=== PATIENT | female | born 2000 | race Caucasian/White ===

== ENCOUNTER 2020-01-08 14:37 | Emergency (ER) | payer OTHER, SELFPAY ==
--- NOTE | 2020-01-08 14:47 | ED.GENADULT ---
HPI - General Adult General Chief complaint: Upper Respiratory Infection Stated complaint: cough/chest congestion/sob Time Seen by Provider: 01/08/20 14:46 Source: patient Mode of arrival: ambulatory Limitations: no limitations History of Present Illness HPI narrative: 19-year-old female patient presents to the [facility] with complaints of cold symptoms for the past 5 days. Patient states she has had a cough, shortness of breath at times, patient denies any fevers that she is aware of. Patient states she does have a history of asthma but is currently out of her inhaler. Patient states that she does vape currently. Denies getting a flu shot this year. Denies taking anything for her symptoms. Related Data Home Medications Medication Instructions Recorded Confirmed ranitidine HCl 01/08/20 Allergies Allergy/AdvReac Type Severity Reaction Status Date / Time Sulfa (Sulfonamide Allergy Unknown Unknown Verified 08/08/19 13:25 Antibiotics) sulfamethoxazole Allergy Unknown Unknown Verified 08/08/19 13:25 trimethoprim Allergy Unknown Unknown Verified 08/08/19 13:25 Honey Bee Allergy Unknown Unknown Uncoded 08/08/19 13:25 Review of Systems Review of Systems: Narrative: CONSTITUTIONAL: Denies fever, chills, or sweats. EYES: Denies visual changes, redness, or discharge. ENT: Denies rhinorrhea, congestion, sore throat, or otalgia. CARDIOVASCULAR: Denies chest pain, palpitations, or edema. RESPIRATORY: Positive cough with dyspnea. GASTROINTESTINAL: Denies abdominal pain, nausea, vomiting, or diarrhea. GENITOURINARY: Denies dysuria or hematuria. SKIN: Denies rash or itching. MUSCULOSKELETAL: Denies back pain, joint pain, or myalgia. NEUROLOGIC: Denies headache, numbness, or weakness. PSYCHIATRIC: Denies anxiety or depression. PMFSH Comments At the time of my signature I agree with nursing past medical history, surgical, social, and family history. There is no relevant family history pertinent to the presenting complaint. Exam Narrative: Exam Narrative: GENERAL: Well-appearing, well-nourished, and in no acute distress. HEAD: Normocephalic, atraumatic. EYES: PERRLA and EOMI. ENT: Nares with erythema and edema noted bilaterally, no rhinorrhea or epistaxis. Mucous membranes moist. Posterior pharynx with no erythema, tonsillar edema, exudates or lesions present. Bilateral TMs are clear with no erythema or foreign bodies in the canal. NECK: Supple. No lymphadenopathy CHEST: Clear to auscultation. No respiratory distress. Patient able talk in clear complete sentences. No tripoding noted at this time. HEART: Regular rate and rhythm. No murmur heard. Normal peripheral pulses. ABDOMEN: Soft, nontender, nondistended, normal active bowel sounds. EXTREMITIES: Normal range of motion. No edema. SKIN: Warm, dry, no rash. NEURO: No focal deficits. Alert and oriented x3. Course Vital Signs Vital signs: Vital Signs Temperature 37.4 C 01/08/20 14:54 Pulse Rate 95 01/08/20 14:54 Respiratory Rate 16 01/08/20 14:54 Blood Pressure 131/81 01/08/20 14:54 Pulse Oximetry 100 01/08/20 14:54 Temperature 37.4 C 01/08/20 14:54 Pulse Rate 95 01/08/20 14:54 Respiratory Rate 16 01/08/20 14:54 Blood Pressure 131/81 01/08/20 14:54 Pulse Oximetry 100 01/08/20 14:54 Vital signs reviewed. Medical Decision Making Differential Diagnosis Differential Diagnosis: Differential diagnosis: Allergic rhinitis, chronic sinusitis, tonsillitis, acute sinusitis, infectious mononucleosis, seasonal influenza, pertussis, diphtheria, meningococcal disease, viral syndrome, viral bronchitis, RSV. Discussed with patient that we will go ahead and discharge her home with an albuterol inhaler since she is currently out for worsening shortness of breath and coughing that she can use. Discussed with patient the fact that she does not have any fever and I do not hear any wheezing noted to the lungs is reassuring at this time. Discussed wi
[2020-01-08 14:54] VITALS: BP 131/81; PULSE 95; RESP 16; TEMP 37.4; O2SAT 100
== END 2020-01-08 15:22 | disposition home or self-care (01) ==
PROVIDERS: Emergency Provider Nurse Practitioner Family
DX: J06.9 Acute upper respiratory infection, unspecified (principal); J45.909 Unspecified asthma, uncomplicated; K21.9 Gastro-esophageal reflux disease without esophagitis
CPT/HCPCS: 99203; G0463

== ENCOUNTER 2021-03-11 10:23 | Emergency (ER) | payer OTHER, SELFPAY ==
[2021-03-11 10:30] VITALS: BP 106/69; PULSE 94; RESP 20; TEMP 36.7; O2SAT 100
--- NOTE | 2021-03-11 10:31 | ED.URI ---
HPI - URI/Sore Throat General Chief Complaint: Upper Respiratory Infection Stated Complaint: congestion cough and sore throat Time Seen by Provider: 03/11/21 10:31 Source: patient and RN notes reviewed History of Present Illness HPI Narrative: Patient is a 20-year-old female who presents the urgent care with complaints of congestion, cough, body aches and sore throat. Patient states that it started on Thursday and is needing a work note to return to work due to her symptoms . Patient states that she has been taking DayQuil for her symptoms. Denies of any nausea, vomiting, fever. Patient states she has not had strep since her tonsils were removed many years ago. Denies of any known contact with Covid, strep or influenza. No other acute complaints. No acute distress noted. Patient aware of the plan of care. Some parts of this dictation were generated by voice recognition software and may contain typographical and/or grammatical inaccuracies. Related Data Allergies Allergy/AdvReac Type Severity Reaction Status Date / Time Sulfa (Sulfonamide Allergy Rash Verified 03/11/21 10:45 Antibiotics) sulfamethoxazole Allergy Rash Verified 03/11/21 10:44 [From ] trimethoprim [From ] Allergy Rash Verified 03/11/21 10:44 Review of Systems Review of Systems: Narrative: CONSTITUTIONAL: Denies fever, chills, or sweats. EYES: Denies visual changes, redness, or discharge. ENT: Reports of congestion, sinus tenderness, sore throat, bilateral otalgia CARDIOVASCULAR: Denies chest pain, palpitations, or edema. RESPIRATORY: Reports a mild nonproductive cough without dyspnea GASTROINTESTINAL: Denies abdominal pain, nausea, vomiting, or diarrhea. GENITOURINARY: Denies dysuria or hematuria. SKIN: Denies rash or itching. MUSCULOSKELETAL: Denies back pain, joint pain, or myalgia. NEUROLOGIC: Denies headache, numbness, or weakness. All other systems reviewed are negative, except as documented in HPI. PMFSH Comments At the time of my signature, I reviewed and agree with the nursing past medical, surgical, social, and family history. There is no relevant family history pertinent to the patient complaint. Exam Narrative: Exam Narrative: GENERAL: This is a well-nourished, well-developed patient, in no apparent distress. HEAD: normocephalic, atraumatic. EYES: PERRL. Sclera clear/white. Vision is grossly intact. EARS: External ears normal, auditory canals clear and without drainage, TMs normal without perforation. Hearing grossly intact. NOSE: External nose normal with no obvious nasal discharge, nares without redness, no rhinorrhea. THROAT: Mucous membranes moist, posterior pharynx clear. NECK: Neck supple, non-tender without lymphadenopathy, masses or thyromegaly. CARDIOVASCULAR: Regular rate and rhythm without murmurs, gallops, or rubs. RESPIRATORY: Clear to auscultation. Breath sounds equal bilaterally. No wheezes, rales, or rhonchi. SKIN: warm, intact with no suspicious lesions or rash, good texture and turgor. NEURO: awake, alert, and oriented to person, place and time. There were no obvious focal neurologic abnormalities. EXTREMITIES: No clubbing, cyanosis, or edema. Course Vital Signs Vital signs: Vital Signs Temperature 98.1 F 03/11/21 10:30 Pulse Rate 94 03/11/21 10:30 Respiratory Rate 20 03/11/21 10:30 Blood Pressure 106/69 03/11/21 10:30 Pulse Oximetry 100 03/11/21 10:30 Temperature 98.1 F 03/11/21 10:47 Pulse Rate 94 03/11/21 10:47 Respiratory Rate 20 03/11/21 10:47 Blood Pressure 106/69 03/11/21 10:47 Pulse Oximetry 100 03/11/21 10:47 Reviewed MDM - URI/Sore Throat MDM Narrative Medical decision making narrative: Reviewed lab results with the patient. She is aware that strep swab was negative. Educated patient on culture we will call within 72 hours if culture is positive and antibiotics are necessary. Rapid Covid test was also negative. Advised the patient to treat her sympto
[2021-03-11 10:47] VITALS: BP 106/69; PULSE 94; RESP 20; TEMP 36.7; O2SAT 100
== END 2021-03-11 11:05 | disposition home or self-care (01) ==
PROVIDERS: Emergency Provider Nurse Practitioner Family
DX: J32.9 Chronic sinusitis, unspecified (principal); Z20.822 Contact with and (suspected) exposure to COVID-19
CPT/HCPCS: 87081; 87426; 87880; 99213; C9803; G0463

== ENCOUNTER 2021-04-26 10:07 | Emergency (ER) | payer OTHER, SELFPAY ==
[2021-04-26 10:12] VITALS: BP 124/69; PULSE 95; RESP 18; TEMP 37.2; O2SAT 99
--- NOTE | 2021-04-26 10:32 | ED.SKABFB ---
HPI - Skin/Abscess/Foreign Bdy General Chief complaint: Skin/Abscess/Foreign Body Stated complaint: unknown rash Source: patient and RN notes reviewed Limitations: no limitations History of Present Illness HPI narrative: The obese patient, previously healthy on no meds, presents with skin eruption. Patient states that she has a half week history of skin eruption along her beltline and under her breast. Is now started to spread to her extremities, umbilicus, and groin. Symptoms are mild, worse with scratching; no fever, streaking, known diabetes; she requests refill of inhalers Related Data Allergies Allergy/AdvReac Type Severity Reaction Status Date / Time Sulfa (Sulfonamide Allergy Mild Rash Verified 04/26/21 10:23 Antibiotics) sulfamethoxazole Allergy Mild Rash Verified 04/26/21 10:23 [From ] trimethoprim [From ] Allergy Mild Rash Verified 04/26/21 10:23 Review of Systems Review of Systems: Narrative: General/Constitutional: No weight loss,fever Eyes: N0: Redness,discharge Ears/Nose/Throat: No: Epistaxis,ear discharge Respiratory: Denies: Hemoptysis Gastrointestinal: No Vomiting, Bleeding-rectal Skin: No Lumps, REPORTS eruption Neurologic: No Focal Weakness,Sz Hematologic: Denies: Petechiae/Purpura Psychiatric: No: Suicida ideationl All Other Systems: Reviewed and Negative PMFSH Comments At time of signature, agree with nursing past medical, surgical, social and family history. There is no relevant family history pertinent to the presenting complaint Exam Narrative: Exam Narrative: General Appearance: Obese/well nourished, Normocephalic Eye: PERRLA, Conjunctiva clear Ear: External ear normal Nose: Normal nose, Nare clear Mouth/Throat: Normal appearing Neck Exam: Supple Respiratory: Airway patent, No respiratory distress Musculoskeletal: Moves all extremities, Non tender Skin: Warm, Dry; macropapular eruption with satellite lesions on trunk, intertriginous areas and extremities Neurological: A&O x3, Normal affect Course Vital Signs Vital signs: Vital Signs Temperature 98.9 F 04/26/21 10:12 Pulse Rate 95 04/26/21 10:12 Respiratory Rate 18 04/26/21 10:12 Blood Pressure 124/69 04/26/21 10:12 Pulse Oximetry 99 04/26/21 10:12 Temperature 98.9 F 04/26/21 10:12 Pulse Rate 95 07/09/21 10:12 Respiratory Rate 18 04/26/21 10:12 Blood Pressure 124/69 04/26/21 10:12 Pulse Oximetry 99 04/26/21 10:12 Discharge Plan Discharge Clinical Impression: Intertrigo, Pruritic condition Patient Disposition: Home, Self-Care Condition: Stable Instructions: Cellulitis (ED), Skin Yeast Infection (ED) Additional Instructions: Keep photo log of area Prescriptions: New albuterol sulfate [Ventolin HFA] 90 mcg/actuation HFA aerosol inhaler 2 puff INHALATION QID PRN (Reason: shortness of breath or wheezing) Qty: 1 RF: 1 prednisone 20 mg tablet 40 mg PO DAILY Qty: 6 RF: 0 fluconazole 150 mg tablet 150 mg PO .qod Qty: 3 RF: 1 cephalexin 500 mg capsule 1,000 mg PO Q12H 7 Days Qty: 28 RF: 0 No Action albuterol sulfate [ProAir HFA] 90 mcg/actuation HFA aerosol inhaler 2 puff INHALATION QID PRN (Reason: shortness of breath or wheezing) Qty: 18 RF: 0 Follow-up/Referrals: PHYSICIAN NOT ON STAFF,NONSTAFF [Primary Care Provider] -
== END 2021-04-26 10:42 | disposition home or self-care (01) ==
PROVIDERS: Emergency Provider Emergency Medicine
DX: L30.4 Erythema intertrigo (principal); J45.909 Unspecified asthma, uncomplicated; K21.9 Gastro-esophageal reflux disease without esophagitis
CPT/HCPCS: 99213; G0463

== ENCOUNTER → 2021-06-15 00:54 | Outpatient (CLI) | payer OTHER, SELFPAY ==
[2021-06-15 22:45] LABS: SARS-CoV-2 RNA PCR Negative
== END ==
PROVIDERS: PCP Internal Medicine; Visit Provider Internal Medicine Gastroenterology
DX: Z01.812 Encounter for preprocedural laboratory examination (principal); Z20.822 Contact with and (suspected) exposure to COVID-19
CPT/HCPCS: C9803; U0003; U0005

== ENCOUNTER 2021-06-19 02:22 | Day surgery (SDC) | payer OTHER, SELFPAY ==
[2021-06-13 10:56] VITALS: BMI 48.5
--- NOTE | 2021-06-18 18:38 | PM.HPGS ---
History of Present Illness History of Present Illness Consent: Risks, benefits, and alternatives have been discussed and questions answered. Patient agrees to proceed with procedure. Chief complaint: nausea/vomiting Narrative: Amanda Kwong is a 21 year old female with persistent nausea and vomiting, often after meals. this began over a year ago. Typically she will eat a few bites and then have to run to the bathroom and vomit. With little she does not come up but she finds that she cannot eat anymore. This happens every meal. She consequently has been eating very little. Despite this she is not losing weight and in fact states that she is gaining weight, due to her body being in starvation mode. her father she believes had Brush's esophagus. She denies dysphagia. She did have ulcers when she was 14 years old. She recently began taking omeprazole 20 mg per day but is uncertain whether has helped so far Review of Systems Review of Systems: All systems reviewed & are unremarkable except as noted in HPI and below PMFSH Past Medical History Medical History Migraine headache Morbid obesity due to excess calories Family History Family History Father Barretts syndrome Mother Asthma Diabetes mellitus Depression Sibling Hypertension Grandparent Diabetes mellitus Other Asthma Social History Social History Smoking status: Current every day smoker Tobacco type: e-cigarettes/vaping Additional smoking assessment comments: Has been using Vape devices for 3 Years Alcohol intake: current Drinks per week: 1 Alcohol use details: Social Drinker Substance use: current Substance use type: marijuana Other substance usage details: twice a week Living arrangements: with family Additional occupation/education comments: [employer] Gender identity (if verbalized by the patient): Female Spiritual care concerns: No Meds Home Medications and Allergies Home Medications Medication Instructions Recorded Confirmed Type albuterol sulfate [ProAir HFA] 2 puff INHALATION QID PRN #18 gm 01/08/20 06/13/21 Rx albuterol sulfate [Ventolin HFA] 2 puff INHALATION QID PRN #1 gm 04/26/21 06/13/21 Rx omeprazole 20 mg capsule,delayed 20 mg PO DAILY #30 cap 06/05/21 06/19/21 Rx release Allergies Allergy/AdvReac Type Severity Reaction Status Date / Time Sulfa (Sulfonamide Allergy Mild Rash Verified 06/19/21 07:46 Antibiotics) sulfamethoxazole Allergy Mild Rash Verified 06/19/21 07:46 [From ] trimethoprim [From ] Allergy Mild Rash Verified 06/19/21 07:46 Exam Const: General: alert Orientation/consciousness: patient oriented x3 Resp: Auscultation: clear to auscultation bilaterally Cardio: Rhythm: regular rhythm GI: GI Palp: Yes Soft to palpation and No Tenderness to palpation present (GI) Neuro: General: patient oriented x3 Assessment and Plan Assessment and plan (1) Nausea and vomiting: Code(s): R11.2 - Nausea with vomiting, unspecified Status: Acute Assessment and Plan: EGD with possible biopsy or dilatation or cautery.
[2021-06-19 07:47] VITALS: BP 115/72; PULSE 84; RESP 20; TEMP 36.2; O2SAT 99; BMI 47.5
[2021-06-19] MEDS: LACTATED RINGERS 1,000 ML 150 ML IV CONT (07:50)
--- NOTE | 2021-06-19 08:11 | WPDANESEPPF ---
Anes - Initial Pre Proc Eval Procedure: Operation Date: 06/19/21 08:30 Proposed Procedures p Esophagogastroduodenoscopy - Onofre Mendoza MD Date/Time: 06/19/21 08:11 Surgeon: Onofre Mendoza MD Pre Op Diagnosis: nausea/vomiting Patient Data Age: 21 Gender: F Height: 1.68 m Weight: 133.4 kg Last Vital Signs Temp 97.1 F L 06/19/21 07:47 Pulse 84 06/19/21 07:47 Resp 20 06/19/21 07:47 BP 115/72 06/19/21 07:47 Pulse Ox 99 06/19/21 07:47 Allergies Allergy/AdvReac Type Severity Reaction Status Date / Time Sulfa (Sulfonamide Allergy Mild Rash Verified 06/19/21 07:46 Antibiotics) sulfamethoxazole Allergy Mild Rash Verified 06/19/21 07:46 [From ] trimethoprim [From ] Allergy Mild Rash Verified 06/19/21 07:46 Home Medications Medication Instructions Recorded Confirmed Type albuterol sulfate [ProAir HFA] 2 puff INHALATION QID PRN #18 gm 01/08/20 06/13/21 Rx albuterol sulfate [Ventolin HFA] 2 puff INHALATION QID PRN #1 gm 04/26/21 06/13/21 Rx omeprazole 20 mg capsule,delayed 20 mg PO DAILY #30 cap 06/05/21 06/19/21 Rx release Patient hx anesthesia problems: none Family hx anesthesia problems: none PMFSH Past Medical History Medical History Migraine headache Morbid obesity due to excess calories Family History Family History Father Barretts syndrome Mother Asthma Diabetes mellitus Depression Sibling Hypertension Grandparent Diabetes mellitus Other Asthma Social History Social History (Updated 06/05/21 @ 09:59 by Mackenzie Agee CMA) Smoking status: Current every day smoker Tobacco type: e-cigarettes/vaping Additional smoking assessment comments: Has been using Vape devices for 3 Years Alcohol intake: current Drinks per week: 1 Alcohol use details: Social Drinker Substance use: current Substance use type: marijuana Other substance usage details: twice a week Living arrangements: with family Additional occupation/education comments: [employer] Gender identity (if verbalized by the patient): Female Spiritual care concerns: No Anes - Eval Final PreProcedure Day of Procedure 06/19/21 08:11 Patient weight: obese Heart: regular rate and rhythm Lungs: clear to auscultation Airway: Mallampati scale class II Neurological: alert and oriented Last oral intake: >/= 8 hours ASA classification: III Emergent: no Anesthetic plan: proceed Anesthesia type and monitoring: general GIVS and standard monitoring Informed Consent: The patient's anesthetic plan and its attendant risks and benefits were discussed with the patient/family/POA. Questions were solicited and answers provided to the satisfaction of the patient/family/POA.
[2021-06-19 08:43] VITALS: BP 127/84; PULSE 77; RESP 23; O2SAT 100
[2021-06-19 08:53] VITALS: BP 128/79; PULSE 72; RESP 17; O2SAT 100
[2021-06-19 09:03] VITALS: BP 126/83; PULSE 75; RESP 11; O2SAT 100
== END 2021-06-19 09:21 | disposition home or self-care (01) ==
PROVIDERS: PCP Internal Medicine; Visit Provider Internal Medicine Gastroenterology
PROC: 0DJ08ZZ Inspection of Upper Intestinal Tract, Via Natural or Artificial Opening Endoscopic (ICD-10-PCS; CPT 43235; principal; 2021-06-19 08:30)
DX: R11.2 Nausea with vomiting, unspecified (principal); K21.9 Gastro-esophageal reflux disease without esophagitis; E66.01 Morbid (severe) obesity due to excess calories; Z68.42 Body mass index [BMI] 45.0-49.9, adult; F17.290 Nicotine dependence, other tobacco product, uncomplicated; F12.90 Cannabis use, unspecified, uncomplicated
CPT/HCPCS: 43239; 87081; J2704; J7120

== ENCOUNTER → 2021-09-10 01:50 | Outpatient (CLI) | payer OTHER, SELFPAY ==
[2021-09-10 17:55] LABS: SARS-CoV-2 RNA PCR Negative
== END ==
PROVIDERS: PCP Internal Medicine; Visit Provider Clinical Nurse Specialist
DX: R05.9 Cough, unspecified (principal); Z20.822 Contact with and (suspected) exposure to COVID-19
CPT/HCPCS: C9803; U0003; U0005

== ENCOUNTER 2021-09-14 09:48 | Emergency (ER) | payer OTHER, SELFPAY ==
[2021-09-14 09:54] VITALS: BP 141/78; PULSE 100; RESP 16; TEMP 36.8; O2SAT 98
--- NOTE | 2021-09-14 10:41 | ED.URI ---
HPI - URI/Sore Throat General Chief Complaint: Upper Respiratory Infection Stated Complaint: cough and hard to breathe Time Seen by Provider: 09/14/21 10:26 Source: patient and RN notes reviewed Mode of arrival: ambulatory Limitations: no limitations History of Present Illness HPI Narrative: Patient presents today with a 9-day history of cough, postnasal drip, congestion, shortness of breath with exertion. History of asthma. She has been using albuterol inhaler with some short-term relief. Patient called her PCP last week and was given a course of prednisone, which helped some. She finished that a few days ago. Denies fever, sore throat. MD elicited complaint: cough and nasal congestion Related Data Allergies Allergy/AdvReac Type Severity Reaction Status Date / Time Sulfa (Sulfonamide Allergy Mild Rash Verified 09/14/21 10:05 Antibiotics) sulfamethoxazole Allergy Mild Rash Verified 09/14/21 10:05 [From ] trimethoprim [From ] Allergy Mild Rash Verified 09/14/21 10:05 Review of Systems Review of Systems: CONSTITUTIONAL: Denies body aches, fever, chills, or sweats. EYES: Denies visual changes, redness, or discharge. ENT: Denies rhinorrhea, sore throat, or otalgia.+ Congestion, postnasal drip CARDIOVASCULAR: Denies chest pain, palpitations, or edema. RESPIRATORY: + Cough, shortness of breath with exertion GASTROINTESTINAL: Denies abdominal pain, nausea, vomiting, or diarrhea. GENITOURINARY: Denies dysuria or hematuria. SKIN: Denies rash, itching, or wounds. MUSCULOSKELETAL: Denies back pain, joint pain, or myalgia. NEUROLOGIC: Denies headache, numbness, tingling, or weakness. PSYCH: Denies depression or anxiety. [facility] Past Medical History Medical History Migraine headache Morbid obesity due to excess calories Family History Family History Father Barretts syndrome Mother Asthma Diabetes mellitus Depression Sibling Hypertension Grandparent Diabetes mellitus Other Asthma Social History Social History Smoking status: Current every day smoker Tobacco type: e-cigarettes/vaping Additional smoking assessment comments: Has been using Vape devices for 3 Years Alcohol intake: current Drinks per week: 1 Alcohol use details: Social Drinker Substance use: current Substance use type: marijuana Other substance usage details: twice a week Additional occupation/education comments: [employer] Gender identity (if verbalized by the patient): Female Spiritual care concerns: No Comments At time of signature, I have reviewed and agree with nursing past medical, surgical, social and family history unless otherwise noted. Please see nursing chart for further information. There is no relevant family history pertinent to the presenting complaint Exam Narrative: GENERAL: Well-appearing, well-nourished, and in no acute distress. HEAD: Normocephalic, atraumatic. EYES: EOMI. No redness or drainage. Conjunctivae normal. ENT: Mucous membranes pink and moist. Nares clear. No rhinorrhea. TMs normal bilaterally. Throat normal. Uvula midline. NECK: Normal AROM. Supple. No lymphadenopathy. CHEST: No respiratory distress. Clear to auscultation. Frequent harsh cough HEART: Regular rate and rhythm. No murmur appreciated. Normal peripheral pulses. EXTREMITIES: Normal range of motion. No edema. SKIN: Warm, dry, no rash. Capillary refill normal. Normal skin turgor. NEURO: No focal deficits. Alert and oriented x3. Gait steady. PSYCH: Normal affect. No signs of depression or anxiety. Course Vital Signs Vital signs: Vital Signs Temperature 98.3 F 09/14/21 09:54 Pulse Rate 100 09/14/21 09:54 Respiratory Rate 16 09/14/21 09:54 Blood Pressure 141/78 H 09/14/21 09:54 Pulse Oximetr
== END 2021-09-14 10:52 | disposition home or self-care (01) ==
PROVIDERS: Emergency Provider Nurse Practitioner; PCP Internal Medicine
DX: J32.9 Chronic sinusitis, unspecified (principal); J40 Bronchitis, not specified as acute or chronic; F17.290 Nicotine dependence, other tobacco product, uncomplicated; E66.01 Morbid (severe) obesity due to excess calories; Z68.42 Body mass index [BMI] 45.0-49.9, adult
CPT/HCPCS: 99213; G0463

== ENCOUNTER 2022-02-03 14:50 | Emergency (ER) | payer OTHER, SELFPAY ==
[2022-02-03 14:54] VITALS: BP 138/75; PULSE 101; RESP 16; TEMP 36.7; O2SAT 99
--- NOTE | 2022-02-03 15:13 | ED.EAR ---
HPI - Ear Problem General Chief complaint: Ear Stated complaint: Ear Pain Time Seen by Provider: 02/03/22 15:10 Source: patient Mode of arrival: ambulatory Limitations: no limitations History of Present Illness HPI Narrative: Ms. Kwong is a 21-year-old female patient presenting to the clinic today with complaints of right ear pain x2 days. Reports that her ear also is muffled. Denies any fever or chills. MD Complaint: ear pain Related Data Allergies Allergy/AdvReac Type Severity Reaction Status Date / Time Sulfa (Sulfonamide Allergy Mild Rash Verified 02/03/22 15:09 Antibiotics) sulfamethoxazole Allergy Mild Rash Verified 02/03/22 15:09 [From ] trimethoprim [From ] Allergy Mild Rash Verified 02/03/22 15:09 Review of Systems Review of Systems: Pertinent positives per HPI. Patient denies any fever, chills, rash, headache, visual changes, dizziness, cough, runny nose, sore throat, shortness of breath, chest pain, palpitations, nausea, vomiting, diarrhea, constipation, abdominal pain, or any urinary issues. PMFSH Past Medical History Medical History Binge eating disorder Migraine headache Morbid obesity due to excess calories Family History Family History Father Barretts syndrome Mother Asthma Diabetes mellitus Depression Sibling Hypertension Grandparent Diabetes mellitus Other Asthma Social History Social History Smoking status: Never smoker Tobacco type: e-cigarettes/vaping Additional smoking assessment comments: Has been using Vape devices for 3 Years Alcohol intake: current Drinks per week: 1 Alcohol use details: Social Drinker Substance use: current Substance use type: marijuana Other substance usage details: twice a week Additional occupation/education comments: [employer] Gender identity (if verbalized by the patient): Female Spiritual care concerns: No Comments At the time of my signature, I reviewed and agree with the nursing past medical, surgical, social, and family history. There is no relevant family history pertinent to the patient complaint. Exam Narrative: General: Well-developed, morbidly obese, in no apparent distress Head: Normocephalic, atraumatic Eyes: Pupils equally round and reactive to light bilaterally, EOM intact, sclera and conjunctive clear, no discharge, lids normal Ears: Left TM intact and clear, right TM red, bulging, erythemic ear canals clear, no drainage, grossly hearing normal. Nose: Nares patent, no discharge, no inflammation, no sinus tenderness. Mouth: Oropharynx without lesions or masses, good dentition, MMM. Neck: Supple, trachea midline, no enlargement of anterior or posterior cervical nodes, no thyroid masses or goiter palpable. Cardio: Regular rate and rhythm, s1 and s2 normal, no murmur appreciated. Resp: Clear to auscultation bilaterally anteriorly and posteriorly, no rhonchi, rales, wheezing or rubs Course Course Emergency Course: Portions of this record may have been created with voice recognition software. Level of Care: Express Care Visit Vital Signs Vital signs: Vital signs reviewed Medical Decision Making MDM Narrative Medical decision making narrative: At the time of visit patient is resting comfortably on the exam table. She is reporting right ear pain with muffled hearing. Right tympanic membrane bulging, red, and erythemic. Diagnosed with right otitis media and amoxicillin was prescribed. Supportive measures were discussed with patient she voiced understanding. Differential Diagnosis Differential Diagnosis: Otalgia, otitis externa, eustachian tube dysfunction, cerumen impaction. Discharge Plan Discharge Clinical Impression: Acute right otitis media Patient Disposition: Home, Self-Care
== END 2022-02-03 15:17 | disposition home or self-care (01) ==
PROVIDERS: Emergency Provider Nurse Practitioner Family; PCP Internal Medicine
DX: H66.91 Otitis media, unspecified, right ear (principal); F17.290 Nicotine dependence, other tobacco product, uncomplicated; F12.90 Cannabis use, unspecified, uncomplicated; E66.01 Morbid (severe) obesity due to excess calories; Z68.42 Body mass index [BMI] 45.0-49.9, adult
CPT/HCPCS: 99213; G0463

== ENCOUNTER 2022-03-06 17:37 | Emergency (ER) | payer OTHER, SELFPAY ==
--- NOTE | ~2022-03-06 | XR_ITS ---
EXAMINATION: XR cervical spine 4-5V DATE: 03/06/2022 18:31 INDICATION: Right neck pain. Fall. TECHNIQUE: 4 views of cervical spine were obtained. COMPARISON: None. FINDINGS: There is 8 degrees levocurvature of cervical spine. Vertebral body heights and intervertebr al disc heights are normal. The facet joints are unremarkable. IMPRESSION: 1. No fracture. Reviewed, dictated and finalized at location A. IMPRESSION: 1. No fracture.
[2022-03-06 17:48] VITALS: BP 141/94; PULSE 92; RESP 16; TEMP 36.4; O2SAT 100
--- NOTE | 2022-03-06 18:13 | ED.HEATRA ---
HPI - Head Injury General Chief complaint: Head Injury Stated complaint: wc, possible concussion Time Seen by Provider: 03/06/22 18:10 Source: patient Mode of arrival: ambulatory Limitations: no limitations History of Present Illness HPI Narrative: Rodriguez Kwong is a 21-year-old female with a PMH of GERD, depression anxiety, asthma, [facility] about 2:00 while she was working at [employer] and hit her head on the concrete after falling over a hose 4 and half hours ago and she states she feels a headache and does not feel well and is kind of sleepy there is no obvious javid on her forehead but she states that she came here for evaluation. Has a diagnosis of headache in her medical history Related Data Allergies Allergy/AdvReac Type Severity Reaction Status Date / Time Sulfa (Sulfonamide Allergy Mild Rash Verified 03/06/22 17:49 Antibiotics) sulfamethoxazole Allergy Mild Rash Verified 03/06/22 17:49 [From ] trimethoprim [From ] Allergy Mild Rash Verified 03/06/22 17:49 Review of Systems Review of Systems: CONSTITUTIONAL: Denies fever, chills, sweats. Headache EYES: Denies visual changes, redness, discharge. ENT: Denies rhinorrhea, congestion, sore throat, otalgia. CARDIOVASCULAR: Denies chest pain, palpitations, edema. RESPIRATORY: Denies dyspnea, wheezing, cough GASTROINTESTINAL: Denies abdominal pain, has nausea, no vomiting, diarrhea. GENITOURINARY: Denies dysuria, hematuria, abnormal discharge SKIN: Denies rash or itching. NEUROLOGIC: Denies numbness, or focal weakness. Feels sleepy PSYCHIATRIC: Denies anxiety or depression. [facility] Past Medical History Medical History Asthma Binge eating disorder GERD (gastroesophageal reflux disease) Migraine headache Morbid obesity due to excess calories Family History Family History Father Barretts syndrome Mother Asthma Diabetes mellitus Depression Sibling Hypertension Grandparent Diabetes mellitus Other Asthma Social History Social History Smoking status: Current every day smoker Tobacco type: e-cigarettes/vaping Additional smoking assessment comments: Has been using Vape devices for 3 Years Alcohol intake: current Drinks per week: 1 Alcohol use details: Social Drinker Substance use: current Substance use type: marijuana Other substance usage details: twice a week Additional occupation/education comments: [employer] Gender identity (if verbalized by the patient): Female Spiritual care concerns: No Comments At time of signature, I agree with nursing past medical, surgical, social and family history. There is no relevant family history pertinent to the presenting complaint. Exam Narrative: GENERAL: This is a well-nourished, well-developed patient, in mild distress. HEAD: normocephalic, atraumatic. EYES: Sclera clear/white. Vision is grossly intact. EARS: External ears normal, . Hearing grossly intact. NOSE: External nose normal without nasal discharge, nares without redness, no rhinorrhea. THROAT: Mucous membranes moist, NECK: Neck supple, non-tender CARDIOVASCULAR: Regular rate and rhythm without murmurs, gallops, or rubs. RESPIRATORY: Clear to auscultation. Breath sounds equal bilaterally. No wheezes, rales, or rhonchi. GASTROINTESTINAL: Abdomen soft, non-tender, SKIN: warm, intact with no suspicious lesions or rash, good texture and turgor. NEURO: awake, alert, and oriented to person, place and time. There were no obvious focal neurologic abnormalities. Steady gait; grossly normal neuro exam, cranial nerves intact EXTREMITIES: Normal range of motion. BACK: Nontender without deformity Course Course Emergency Course: Patient comes after fall at work after hitting head on concrete about 4 and half hours
== END 2022-03-06 19:03 | disposition home or self-care (01) ==
PROVIDERS: Emergency Provider Nurse Practitioner; PCP Internal Medicine
DX: S06.0X0A Concussion without loss of consciousness, initial encounter (principal); W18.09XA Striking against other object with subsequent fall, initial encounter; Y99.0 Civilian activity done for income or pay; R51.9 Headache, unspecified; K21.9 Gastro-esophageal reflux disease without esophagitis; J45.909 Unspecified asthma, uncomplicated; E66.01 Morbid (severe) obesity due to excess calories; Z68.41 Body mass index [BMI] 40.0-44.9, adult; F17.290 Nicotine dependence, other tobacco product, uncomplicated
CPT/HCPCS: 72050; 99213; G0463

== ENCOUNTER 2022-03-24 14:45 | Outpatient (CLI) | payer OTHER, SELFPAY ==
--- NOTE | ~2022-03-24 | MR_ITS ---
EXAMINATION: MR brain/brain stem wo/w con DATE: 03/24/2022 15:34 INDICATION: Postconcussion syndrome. TECHNIQUE: Magnetic resonance imaging (MRI) of the brain and brainstem was performed without and with 20 mL MultiHance intravenous contrast. COMPARISON: None. FINDINGS: There is no intracranial hemorrhage, acute infarction, or abnormal intracranial mass lesion . The ventricles are normal in size. The mastoid air cells are normal. There are mucous retention cys ts in right maxillary sinus. There is mild mucosal thickening in the paranasal sinuses. The mastoid a ir cells are normal. IMPRESSION: 1. Normal brain. Reviewed, dictated and finalized at location E. IMPRESSION: 1. Normal brain.
[2022-03-24 15:18] LABS: Estimated Glomerular Filt Rate > 60
== END 2022-03-24 14:46 | disposition home or self-care (01) ==
PROVIDERS: PCP Internal Medicine; Visit Provider Nurse Practitioner
DX: F07.81 Postconcussional syndrome (principal); H53.8 Other visual disturbances
CPT/HCPCS: 70553; A9577

== ENCOUNTER 2022-11-27 15:06 | Emergency (ER) | payer OTHER, SELFPAY ==
[2022-11-27 15:15] VITALS: BP 126/78; PULSE 111; RESP 16; TEMP 36.7; O2SAT 100
--- NOTE | 2022-11-27 15:23 | ED.URI ---
HPI - URI/Sore Throat General Chief Complaint: Upper Respiratory Infection Stated Complaint: Sore Throat History of Present Illness HPI Narrative: 22-year-old female presents urgent care with complaints of sore throat x2 days. Patient reports a slight cough and some nasal drainage. Denies any fevers, chills, chest pain, vomiting, or diarrhea. Some parts of this dictation were generated by voice recognition software and may contain typographical and/or grammatical inaccuracies. Related Data Allergies Allergy/AdvReac Type Severity Reaction Status Date / Time Sulfa (Sulfonamide Allergy Mild Rash Verified 11/27/22 15:34 Antibiotics) sulfamethoxazole Allergy Mild Rash Verified 11/27/22 15:34 [From ] trimethoprim [From ] Allergy Mild Rash Verified 11/27/22 15:34 Review of Systems Review of Systems: CONSTITUTIONAL: Denies fever, chills, or sweats. EYES: Denies visual changes, redness, or discharge. ENT: Reports sore throat CARDIOVASCULAR: Denies chest pain, palpitations, or edema. RESPIRATORY: Denies cough or dyspnea. GASTROINTESTINAL: Denies abdominal pain, nausea, vomiting, or diarrhea. GENITOURINARY: Denies dysuria or hematuria. SKIN: Denies rash or itching. MUSCULOSKELETAL: Denies back pain, joint pain, or myalgia. NEUROLOGIC: Denies headache, numbness, or weakness. [facility] Past Medical History Medical History Asthma Binge eating disorder GERD (gastroesophageal reflux disease) Migraine headache Morbid obesity due to excess calories Family History Family History Father Barretts syndrome Mother Asthma Diabetes mellitus Depression Sibling Hypertension Grandparent Diabetes mellitus Other Asthma Social History Social History Smoking status: Current every day smoker Tobacco type: e-cigarettes/vaping Additional smoking assessment comments: Has been using Vape devices for 3 Years Alcohol intake: current Drinks per week: 1 Alcohol use details: Social Drinker Substance use: current Substance use type: marijuana Other substance usage details: twice a week Living arrangements: with family Occupation/Education: occupation Additional occupation/education comments: [employer] Gender identity (if verbalized by the patient): Female Spiritual care concerns: No Comments At the time of my signature, I reviewed and agree with the nursing past medical, surgical, social, and family history. There is no relevant family history pertinent to the patient complaint. Exam Narrative: GENERAL: This is a well-nourished, well-developed patient, in no apparent distress. HEAD: normocephalic, atraumatic. EYES: PERRL. Sclera clear/white. Vision is grossly intact. EARS: External ears normal, auditory canals clear and without drainage, TMs normal without perforation. Hearing grossly intact. NOSE: External nose normal with no obvious nasal discharge, nares without redness, no rhinorrhea. THROAT: Posterior neck is is erythemic. No tonsils noted; hx of tonsillectomy. NECK: Neck supple, non-tender without lymphadenopathy, masses or thyromegaly. CARDIOVASCULAR: Regular rate and rhythm without murmurs, gallops, or rubs. RESPIRATORY: Clear to auscultation. Breath sounds equal bilaterally. No wheezes, rales, or rhonchi. GASTROINTESTINAL: Abdomen soft, non-tender, nondistended. Bowel sounds are active. No hepato-splenomegaly, or palpable masses. No guarding. SKIN: warm, intact with no suspicious lesions or rash, good texture and turgor. NEURO: awake, alert, and oriented to person, place and time. There were no obvious focal neurologic abnormalities. Course Course Level of Care: Express Care Visit Vital Signs Vital signs: Vital Signs Temperature 98.1 F 11/27/22 15:15 Pulse Rate 111 H 11/27/22 15:15 Respiratory Rate
== END 2022-11-27 15:38 | disposition home or self-care (01) ==
PROVIDERS: Emergency Provider Nurse Practitioner Family
DX: J02.0 Streptococcal pharyngitis (principal); F17.290 Nicotine dependence, other tobacco product, uncomplicated; J45.909 Unspecified asthma, uncomplicated; K21.9 Gastro-esophageal reflux disease without esophagitis; E66.01 Morbid (severe) obesity due to excess calories; Z68.42 Body mass index [BMI] 45.0-49.9, adult
CPT/HCPCS: 87880; 99213; G0463

== ENCOUNTER 2023-02-12 15:11 | Emergency (ER) | payer OTHER, SELFPAY ==
[2023-02-12 15:16] VITALS: BP 135/72; PULSE 108; RESP 20; TEMP 36.4; O2SAT 98
--- NOTE | 2023-02-12 15:38 | ED.URI ---
HPI - URI/Sore Throat General Chief Complaint: Upper Respiratory Infection Stated Complaint: cough / sinus congestion Time Seen by Provider: 02/12/23 15:39 Source: patient, RN notes reviewed and old records reviewed Mode of arrival: ambulatory Limitations: no limitations History of Present Illness HPI Narrative: 22-year-old female who presents to [facility] with complaints 2 week duration cough with fevers up to 101.8F with productive cough of yellowish green phlegm. Patient reports no fevers since last but continues to have cough, hacking with phlegm. Patient also complaining of right ear pain with muffled hearing Patient voices history of asthma does not have inhaler at this time. Patient has been taking Mucinex DayQuil and NyQuil for her symptoms. Home COVID reported to be negative on the . Patient does vape. MD elicited complaint: fever, cough and other (ear pain) Pertinent past history: asthma Onset (ago): week(s) (2) Pain scale (0-10): 4 Able to tolerate fluids by mouth: Yes Treatments prior to arrival: other (DayQuil,NyQuil, and Mucinex) Related Data Allergies Allergy/AdvReac Type Severity Reaction Status Date / Time Sulfa (Sulfonamide Allergy Mild Rash Verified 02/12/23 15:27 Antibiotics) sulfamethoxazole Allergy Mild Rash Verified 02/12/23 15:27 [From ] trimethoprim [From ] Allergy Mild Rash Verified 02/12/23 15:27 Review of Systems Review of Systems: CONSTITUTIONAL: Reports malaise, chills, sweats, or fever. EYES: Denies visual changes, redness, or discharge. ENT: Reports rhinorrhea, congestion, sinus pain, right otalgia no sore throat. CARDIOVASCULAR: Denies chest pain, palpitations, or edema. RESPIRATORY: Reports cough.? Denies dyspnea, some chest soreness from cough GASTROINTESTINAL: Denies abdominal pain, nausea, vomiting, diarrhea SKIN: Denies rash or itching. MUSCULOSKELETAL: Denies myalgia. NEUROLOGIC: Reports headache. All systems reviewed & are unremarkable except as noted in HPI and below PMFSH Past Medical History Medical History (Updated 02/13/23 @ 00:01 by Background Daemon) Asthma Binge eating disorder Blurred vision COVID-19 Establishing care with new doctor, encounter for GERD (gastroesophageal reflux disease) Migraine headache Morbid obesity due to excess calories Nausea and vomiting Pharyngitis Postconcussive syndrome Surgical History Surgical History (Updated 02/14/23 @ 08:02 by Cindy Rogers NP) History of placement of ear tubes S/P tonsillectomy and adenoidectomy Family History Family History Father Barretts syndrome Mother Asthma Diabetes mellitus Depression Sibling Hypertension Grandparent Diabetes mellitus Other Asthma Social History Social History Smoking status: Current every day smoker Tobacco type: e-cigarettes/vaping Additional smoking assessment comments: Has been using Vape devices for 3 Years Alcohol intake: current Drinks per week: 1 Alcohol use details: Social Drinker Substance use: current Substance use type: marijuana Other substance usage details: twice a week Living arrangements: with family Occupation/Education: occupation Additional occupation/education comments: [employer] Gender identity (if verbalized by the patient): Female Spiritual care concerns: No Comments At time of signature, agree with nursing past medical, surgical, social and family history. There is no relevant family history pertinent to the presenting complaint Exam Narrative: GENERAL: Well-appearing, well-nourished, and in no acute distress. HEAD: Normocephalic EYES: PERRLA, conjunctivae clear ENT: Nares clear, turbinates edematous and erythematous, clear discharge. Mucous membranes moist.Right TM red and bulging, Left TM pearly noland with dull light refle
== END 2023-02-12 16:07 | disposition home or self-care (01) ==
PROVIDERS: Emergency Provider Registered Nurse; PCP Internal Medicine
DX: J06.9 Acute upper respiratory infection, unspecified (principal); H66.91 Otitis media, unspecified, right ear; F17.290 Nicotine dependence, other tobacco product, uncomplicated; F12.90 Cannabis use, unspecified, uncomplicated; J45.909 Unspecified asthma, uncomplicated; K21.9 Gastro-esophageal reflux disease without esophagitis; E66.01 Morbid (severe) obesity due to excess calories; Z68.42 Body mass index [BMI] 45.0-49.9, adult; Z86.16 Personal history of COVID-19
CPT/HCPCS: 99213; G0463

== ENCOUNTER 2023-02-19 15:26 | Outpatient (CLI) | payer OTHER, SELFPAY ==
[2023-02-19 20:35] LABS: Hepatitis B Surface Antigen Negative (Negative)
[2023-02-19 20:52] LABS: Hepatitis C Virus Antibody Negative (Negative)
[2023-02-19 20:53] LABS: HIV 1/2 Ab P24 Ag Result Negative (Negative)
[2023-02-20 10:30] LABS: Rapid Plasma Reagin Non-Reactive (NonReactive)
[2023-03-18 13:42] LABS: Herpes Simplex Type 1 DNA PCR Not Detected
[2023-03-18 13:43] LABS: Herpes Simplex Type 2 DNA PCR Not Detected
== END 2023-02-19 15:27 | disposition home or self-care (01) ==
LOC: ANHGOSHLAB 15:28
PROVIDERS: PCP Internal Medicine; Visit Provider Nurse Practitioner
DX: N89.8 Other specified noninflammatory disorders of vagina (principal)
CPT/HCPCS: 36415; 86592; 86703; 86803; 87340; 87491; 87529; 87591; G0432

== ENCOUNTER 2025-01-16 19:00 | Emergency (ER) | payer OTHER, SELFPAY ==
--- NOTE | ~2025-01-16 | US_ITS ---
EXAMINATION: US OB <= 14 weeks fetus DATE: 01/16/2025 20:57 CDT INDICATION: Cramping and spotting COMPARISON: 07/20/2024 TECHNIQUE: Real-time transabdominal obstetric ultrasound. FINDINGS: 2 para 1 Estimated date of delivery by last menstrual period is 07/15/2025 The uterus measures 17 x 9.8 x 12.3 cm. A gestational sac is identified within the uterus. No perigestational hemorrhage is appreciated. A pole is identified, with a crown-rump length that measures 7.6 cm, corresponding to an approx imate gestational age of 13 weeks and 5 days. cardiac activity is identified at a rate of 148 bpm. The right ovary measures 3 x 1.9 x 2.4 cm. The left ovary measures 3.1 x 1.6 x 1.6 cm. Estimated date of delivery by ultrasound is 07/19/2025 IMPRESSION: Single intrauterine gestation with an approximate gestational age of 13 weeks and 5 days, with cardiac activity identified. Reviewed, dictated and finalized at location A. IMPRESSION: Single intrauterine gestation with an approximate gestational age of 13 weeks a nd 5 days, with cardiac activity identified.
[2025-01-16 19:04] VITALS: BP 135/94; PULSE 94; RESP 16; TEMP 36.3; O2SAT 98
--- OUTSIDE RECORDS SUMMARY | 2025-01-16 19:06 | XMS_ITS | Clinical Summary ---
Author Organization [facility] Address [address] [place] [address] Phone Care Team Providers Care Building Construction Foreman Name Role Phone Reagan Farnsworth DO Primary Care Provider Allergies Active Allergy Reactions Criticality Noted Date Comments Sulfamethoxazole-Trimethoprim Swelling 2023 Sulfa Antibiotics Hives 07/26/2024 Medications No known medications Encounters Date Type Department Care Team Description 11/14/2024 7:57 PM [facility] - 11/14/2024 9:43 PM [facility] Emergency [facility] [address] [place] [address] Mali Gupta, TUSHAR, GUYLINE OPERATOR Muscle spasms of both lower extremities Discharge Disposition: Discharged to home or Selfcare 11/14/2024 Travel from Last 3 Months Social History Tobacco Use Types Packs/Day Years Used Date Smoking Tobacco: Never Smokeless Tobacco: Never Tobacco Cessation:Counseling Given: Not Answered Comments Yes Sex and Gender Information Value Date Recorded Sex Assigned at Not on file Legal Sex Female 5:28 PM CDT Gender Identity Not on file Sexual Orientation Not on file Last Filed Vital Signs Vital Sign Reading Time Taken Comments Blood Pressure 121/66 11/14/2024 8:40 PM [facility] Pulse 98 11/14/2024 8:40 PM [facility] Temperature 36.8 C (98.2 F) 11/14/2024 8:40 PM [facility] Respiratory Rate 14 11/14/2024 8:40 PM [facility] Oxygen Saturation 100% 11/14/2024 8:40 PM [facility] Inhaled Oxygen Concentration - - Weight 137.4 kg (303 lb) 11/14/2024 7:51 PM [facility] Height 165.1 cm (5' 5 ) 11/14/2024 7:51 PM [facility] Body Mass Index 50.42 11/14/2024 7:51 PM [facility] Plan of Treatment Health Maintenance Due Date Last Done Comments Hepatitis C Virus (HCV) Screening 1998 TdaP Immunization 1998 Human Papillomavirus (HPV) Immunization (1 - 3-dose series) 2013 Pap Smear 2019 Influenza Immunization (#1) 2024 SARS-COV-2 Immunization ( season) 2024 Respiratory Syncytial Virus (RSV) Immunization (Adult) (1 - 1-dose 75+ series) 2073 Hepatitis B Immunization Completed 999, 1998, 1998 Meningococcal Immunization (ACWY) Aged Out No longer eligible b ased on patient's age to complete this topic Pneumococcal Immunization Combined Aged Out No longer eligible b ased on patient's age to complete this topic Rotavirus Immunization Aged Out No lo nger eligible based on patient's age to complete this topic Procedures Procedure Name Priority Date/Time Associated Diagnosis Comments CBC WITH AUTO DIFFERENTIAL STAT 11/14/2024 7:59 PM [facility] HCG BETA SUBUNIT SERUM QUANT STAT 11/14/2024 7:59 PM [facility] D-DIMER STAT 11/14/2024 7:59 PM [facility] CMP (COMPREHENSIVE METABOLIC PANEL) STAT 11/14/2024 7:59 PM [facility] COMPLETE BLOOD COUNT (CBC) WITH DIFF STAT 11/14/2024 7:59 PM [facility] from Last 3 Months Results * (ABNORMAL) CBC with Auto Differential (11/14/2024 7:59 PM [facility]) WBC 12.74(H) 4.00 - 12.00 10(3)/mcL 11/14/2024 8:13 PM [facility] RBC 4.32 3.80 - 5.30 10(6)/mcL 11/14/2024 8:13 PM [facility] HEMOGLOBIN (HGB) 13.7 12.0 - 15.8 g/dL 11/14/2024 8:13 PM [facility] HEMATOCRIT (HCT) 38.9 36.0 - 47.0 % 11/14/2024 8:13 PM [facility] MCV 90.0 82.0 - 96.0 fL 11/14/2024 8:13 PM [facility] MCH 31.7 26.0 - 34.0 pg 11/14/2024 8:13 PM [facility] MCHC 35.2 31.0 - 36.0 g/dL 11/14/2024 8:13 PM [facility] PLATELET COUNT 337 140 - 440 10(3)/[facility] 11/14/2024 8:13 PM [facility] RDW 12.2 11.8 - 15.5 % 11/14/2024 8:13 PM [facility] MPV 9.1(L) 9.7 - 12.4 fL 11/14/2024 8:13 PM [facility] NEUTROPHILS 60.9 47.0 - 73.0 % 11/14/2024 8:13 PM [facility] LYMPHOCYTES 31.6 18.0 - 42.0 % 11/14/2024 8:13 PM [facility] MONOCYTES 6.1 4.0 - 12.0 % 11/14/2024 8:13 PM [facility] EOSINOPHILS 1.1 0.0 - 5.0 % 11/14/2024 8:13 PM [facility] BASOPHILS 0.3 0.0 - 1.0 % 11/14/2024 8:13 PM [facility] ABSOLUTE NEUTROPHILS 7.76(H) 1.60 - 7.70 10(3)/mcL 11/14/2024 8:13 PM [facility] ABSOLUTE LYMPHOCYTES 4.02(H) 1.30 - 3.20 10(3)/[facility] 11/14/2024 8:13 PM [facility] ABSOLUTE MONOCYTES 0.78 0.20 - 1.00 10(3)/mcL 11/14/2024 8:13 PM [facility] ABSOLUTE EOSINOPHIL 0.14 0.00 - 0.40 10(3)/mcL 11/14/2024 8:13 PM [facility] ABSOLUTE BASOPHILS 0.04 0.00 - 0.10 10(3)/[facility] 11/14/2024 8:13 PM [facility] NRBC PER 100 WBC 0 11/14/19 8:13 PM [facility] Blood Venipuncture / Unknown 11/14/2024 7:59 PM [facility] 11/14/2024 8:10 PM [facility] us Neri Driscoll MD HEMATOLOGY ORDERABLES Fin al Result [facility] [address] [place] [address] * (ABNORMAL) HCG Beta Subunit Serum Quant (11/14/2024 7:59 PM [facility]) HCG BETA SUBUNIT, QUANT 2,198.14(H ) 0.00 - 5.00 mIU/mL 11/14/2024 9:24 PM [facility] Blood Venipuncture / Unknown 11/14/2024 7:59 PM [facility] 11/14/2024 8:10 PM [facility] Narrative [facility] - 11/14/2024 9:24 PM [facility] HCG levels should be interpreted with consideration given to the patient's clinical condition. No currently available hCG test is approved by the FDA for use as a tumor marker. hCG results <5 mIU/mL are considered negative. Weeks post LMP hCG range (mIU/mL) 1 - 10 202 - 231,000 11 - 15 22,536 - 234,990 16 - 22 8,007 - 50,064 23 - 40 1,600 - 49,413 The concentration of hCG in maternal serum rises rapidly in early , hCG levels less than 25 mIU/mL do not exclude . A further sample should be tested after 48 hours if is suspected. Heterophilic antibodies present in the serum of some patients may cause a false positive result in the assay. Before making a diagnosis of malignancy based on elevated hCG, confirm results with a urine hCG. us Mali Gupta APRN, GUYLINE OPERATOR CHEMISTRY ORDERABLES Final Result Performing Organization Address [facility] Co de Phone Number [facility] [address] [place] [address] * D-DIMER [id number] (11/14/2024 7:59 PM [facility]) [facility] D DIMER 0.42 <0.50 mcg/mL FEU 11/14/2024 8:54 PM [facility] Blood Venipuncture / Unknown 11/14/2024 7:59 PM [facility] 11/14/2024 8:10 PM [facility] Narrative [facility] - 11/14/2024 8:54 PM [facility] The FDA has approved this method to exclude the diagnosis of DVT and/or PE at the cutoff value of <0.50 mcg/mL FEU. Neri Driscoll MD HEMATOLOGY ORDERABLES Fin al Result Performing Organization Address [facility] Co de Phone Number [facility] [address] [place] [address] * (ABNORMAL) Comprehensive Metabolic Panel (Cmp) [id number] (11/14/2024 7:59 PM [facility]) [facility] SODIUM 138 136 - 145 mmol/L 11/14/2024 8:36 PM [facility] POTASSIUM 3.5 3.5 - 5.1 mmol/L 11/14/2024 8:36 PM [facility] CHLORIDE 107 98 - 107 mmol/L 11/14/2024 8:36 PM [facility] CO2, VENOUS 22 22 - 30 mmol/L 11/14/2024 8:36 PM [facility] ANION GAP 12.5 <18.0 mmol/L 11/14/2024 8:36 PM [facility] GLUCOSE 103(H) 70 - 99 mg/dL 11/14/2024 8:36 PM [facility] BUN 9 5 - 18 mg/dL 11/14/2024 8:36 PM [facility] CREATININE, BLOOD 0.87 0.60 - 1.00 mg/dL 11/14/2024 8:36 PM [facility] BUN/CREATININE RATIO 10(L) 12 - 20 ratio 11/14/2024 8:36 PM [facility] TOTAL PROTEIN 7.2 6.0 - 8.0 g/dL 11/14/2024 8:36 PM [facility] ALBUMIN 4.0 3.5 - 5.0 g/dL 11/14/2024 8:36 PM [facility] A/G RATIO 1.3 1.0 - 2.2 11/14/2024 8:36 PM [facility] CALCIUM 8.9 8.7 - 10.5 mg/dL 11/14/2024 8:36 PM [facility] T BILI 0.3 0.2 - 1.2 mg/dL 11/14/2024 8:36 PM [facility] SGOT (AST) 20 6 - 42 U/L 11/14/2024 8:36 PM [facility] SGPT (ALT) 27 6 - 55 U/L 11/14/2024 8:36 PM [facility] ALKALINE PHOSPHATASE 63 40 - 150 U/L 11/14/2024 8:36 PM [facility] GFR, ESTIMATED >60 >=60 11/14/2024 8:36 PM [facility] Comment: Creatinine Clearance is the preferred criteria for selecting drug dose adjustments in renally impaired patients. The GFR is provided as additional pertinent clinical information. GFR is reported in mL/min/1.73 sq m. Calculation based on the Chronic Kidney Disease Epidemiology Collaboration (CKD- EPI) equation refit without adjustment for race. GFR, EST. >60 >=60 025 8:36 PM [facility] GFR, EST. NONAFRICAN >60 >=60 11/14/2024 8:36 PM [facility] Blood Venipuncture / Unknown 11/14/2024 7:59 PM [facility] 11/14/2024 8:10 PM [facility] us Neri Driscoll MD CHEMISTRY ORDERABLES Audrey l Result [facility] [address] [place] [address] from Last 3 Months Insurance MEDICAID [facility] Care Teams Building Construction Foreman Relationship Specialty Start Date End Date Reagan Farnsworth DO [address] [facility] [place] [address] PCP - General Internal Medicine 07/26/24
--- OUTSIDE RECORDS SUMMARY | 2025-01-16 19:06 | XMS_ITS | Data Portability ---
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 Plan of Treatment Reminders Order Date Submit Date Provider Last Modified By Organization Details Last Modified Time Details Appointments U/S OB > 14 WKS 2024 11:30A M ULTRASOUND Not available Not available Not available OB ROUTINE 2024 10:00A M CONOR RESENDEZ MD Not available Not available Not available U/S OB BASELIN E 2024 10:00A M ULTRASOUND Not available Not available Not available OB ROUTINE 2024 11:00A M Emily Verdugo CNM Not available Not available Not available Lab drug screen, urine 2024 025 [email or web address] [address], [address], [place], [address], 01/04/2025 12:32:13 culture , urine 2024 025 [facility] (Lab), [address], [place], [address], 01/06/2025 02:46:10 genetic screen, unspeci fied specime n 2024 025 [facility], [address], [place], [address], 01/01/2025 12:17:50 aneuplo idy risk, chromos ome specifi c circula ting cell free (ccf) DNA, materna l serum 2024 025 [facility], [address], [place], [address], 12/29/2024 02:06:01 HbA1c (hemogl obin A1c), blood 2024 025 [facility] (Lab), [address], [place], [address], 12/23/2024 12:42:35 type + screen, serum 2024 025 [facility] (Lab), [address], [place], [address], 12/23/2024 12:42:35 rubella igg Ab, titer, serum 2024 025 [facility] (Lab), [address], [place], [address], 12/23/2024 12:42:34 CBC w/ auto diff 2024 025 [facility] (Lab), [address], [place], [address], 12/23/2024 12:42:33 hepatit is C virus Ab, serum 2024 025 [facility] (Lab), [address], [place], [address], 12/23/2024 12:42:35 HBsAg (hepati tis B surface Ag), serum 2024 025 [facility] (Lab), [address] [place], [address], 12/23/2024 12:42:34 RPR (rapid plasma reagin) , serum 2024 025 [facility] (Lab), [address] [place], [address], 12/23/2024 12:42:36 HIV 1+2 AB + HIV 1 p24 Ag, qualita tive immunoa ssay, serum 2024 025 [facility] (Lab), [address], [place], [address], 12/23/2024 12:42:34 Referral None recorde d. Procedures None recorde d. Surgeries None recorde d. Imaging US, obstetr ic, nuchal translu cency 2024 025 [email or web address] [address], [address], [place], [address], 01/04/2025 19:29:43 US, obstetr ic, transva ginal 2024 025 [email or web address] [address], [address], [place], [address], 11/28/2024 11:41:07 Medication Orders albuter ol sulfate HFA 90 mcg/act uation aerosol inhaler 2024 025 [email or web address] [id number], [address] , [place], [address], 01/04/2025 12:32:12 metoclo pramide 10 mg tablet 2024 025 [email or web address] [facility][id number], [address] , [place], [address], 01/04/2025 12:32:12 Patient TargetsNo targets recorded. Patient InstructionsNo instructions recorded. Reason for Referral None Reported. Results Created Date Observation Date Name Description Value Unit Range Abnormal Flag Note LastModifiedBy Organization Detail LastModifiedTime 12/30/19 25 12/29/2024 [UNIT Y] ANEUP LOIDY NIPT fraction 4.5% normal Not Available Misbah garvin [address], [place], [address], 12/29/2024 02:06:01 12/30/19 25 12/29/2024 [UNIT Y] ANEUP LOIDY NIPT 22Q11.2 microdeletio n LOW RISK <1 in 10,000 normal Not Available [facility] [address] [facility], [place], [address], 12/29/2024 02:06:01 12/30/19 25 12/29/2024 [UNIT Y] ANEUP LOIDY NIPT sex chromosome aneuploidy NOT DETECT ED normal Not Available [facility] [address] [facility], [place], [address], 12/29/2024 02:06:01 12/30/19 25 12/29/2024 [UNIT Y] ANEUP LOIDY NIPT monosomy X LOW RISK <1 in 10,000 normal Not Available [facility] [address] [facility], [place], [address], 12/29/2024 02:06:01 12/30/19 25 12/29/2024 [UNIT Y] ANEUP LOIDY NIPT trisomy 13 LOW RISK <1 in 10,000 normal Not Available [facility] [facility], [place], [address], 12/29/2024 02:06:01 12/30/19 25 12/29/2024 [UNIT Y] ANEUP LOIDY NIPT trisomy 18 LOW RISK <1 in 10,000 normal Not Available [facility] [address] [facility], [place], [address], 12/29/2024 02:06:01 12/30/19 25 12/29/2024 [UNIT Y] ANEUP LOIDY NIPT trisomy 21 LOW RISK <1 in 10,000 normal Not Available [facility] [address] [place], [address], 12/29/2024 02:06:01 12/30/19 25 12/29/2024 [UNIT Y] ANEUP LOIDY NIPT sex MALE normal Not Available [facility] [address] [place] [place] [address], [place], [address], 12/29/2024 02:06:01 12/30/19 25 12/29/2024 [UNIT Y] ANEUP LOIDY NIPT gestation SINGLE TON normal Not Available [facility] [address], [place], [address], 12/29/2024 02:06:01 12/30/19 25 12/29/2024 [UNIT Y] ANEUP LOIDY NIPT for detailed report, see pdf See PDF normal Not Available [facility] [address], [place], [address], 12/29/2024 02:06:01 01/02/20 25 01/01/2025 [UNIT Y] THANG Serrato sickle cell disease/beta -thalassemia /hemoglobino pathies carrier screen NEGATI VE normal Not Available [facility] [address], [place], [address], 01/01/2025 12:17:50 01/02/20 25 01/01/2025 [UNIT Y] THANG Serrato alpha-thalas semia carrier screen NEGATI VE normal Not Available [facility] [address], [place], [address], 01/01/2025 12:17:50 01/02/20 25 01/01/2025 [UNIT Y] THANG Serrato cystic fibrosis carrier screen NEGATI VE normal Not Available [facility] [address], [place], [address], 01/01/2025 12:17:50 01/02/20 25 01/01/2025 [UNIT Y] THANG Serrato spinal muscular atrophy carrier screen NEGATI VE 2 SMN1 copies , SNP not presen t normal Not Available [facility] [address], [place], [address], 01/01/2025 12:17:50 01/02/20 25 01/01/2025 [UNIT Y] THANG Serrato for detailed report, see pdf See PDF normal Not Available [facility] [address], [place], [address], 01/01/2025 12:17:50 12/07/19 25 12/07/2024 CT/GC AND TRICH OMONA S VAGIN COLEEN (RRNA ), URINE chlamydia trachomatis, PCR Negati ve negati ve Not Available [facility] (Lab) [address] [facility], [place], [address], 12/11/2024 23:55:18 12/07/19 25 12/07/2024 CT/GC AND TRICH OMONA S VAGIN COLEEN (RRNA ), URINE neisseria gonorrhoeae, PCR Negati ve negati ve Not Available [facility] (Lab) [address], [place], [address], 12/11/2024 23:55:18 12/07/19 25 12/07/2024 CT/GC AND TRICH OMONA S VAGIN COLEEN (RRNA ), URINE trichomonas vaginalis ribosomal RNA (rrna) Negati ve negati ve Not Available [facility] (Lab) [address] [facility], [place], [address], 12/11/2024 23:55:18 12/23/19 25 12/22/2024 CBC W/DIF F WBC 9.2 10'3/ uL 3.5-10 .5 Not Available [facility] (Lab) [address] [facility], [place], [address], 12/23/2024 12:42:33 12/23/19 25 12/22/2024 CBC W/DIF F RBC 4.37 10'6/ uL (based on docume nted legal sex) 3.80-5 .20 Not Available [facility] (Lab) [address] [facility], [place], [address], 12/23/2024 12:42:33 12/23/19 25 12/22/2024 CBC W/DIF F HGB 13.5 g/dL (based on docume nted legal sex) 11.6-1 5.4 Not Available [facility] (Lab) [address], [place], [address], 12/23/2024 12:42:33 12/23/19 25 12/22/2024 CBC W/DIF F HCT 41.3 % (based on docume nted legal sex) 34.0-4 5.0 Not Available [facility] (Lab) [address], [place], [address], 12/23/2024 12:42:33 12/23/19 25 12/22/2024 CBC W/DIF F MCV 94.5 fL 80.0-9 9.0 Not Available [facility] (Lab) [address], [place], [address], 12/23/2024 12:42:33 12/23/19 25 12/22/2024 CBC W/DIF F MCH 30.9 pg 27.0-3 4.0 Not Available [facility] (Lab) [address], [place], [address], 12/23/2024 12:42:33 12/23/19 25 12/22/2024 CBC W/DIF F MCHC 32.7 g/dL 32.0-3 5.5 Not Available [facility] (Lab) [address] [facility], [place], [address], 12/23/2024 12:42:33 12/23/19 25 12/22/2024 CBC W/DIF F RDW 13.1 % 11.0-1 5.0 Not Available [facility] (Lab) [address] [facility], [place], [address], 12/23/2024 12:42:33 12/23/19 25 12/22/2024 CBC W/DIF F plt 309 10'3/ uL 150-40 0 Not Available [facility] (Lab) [address] [place], [address], 12/23/2024 12:42:33 12/23/19 25 12/22/2024 CBC W/DIF F MPV 10.3 fL 8.8-12 .1 Not Available [facility] (Lab) [address] [facility], [place], [address], 12/23/2024 12:42:33 12/23/19 25 12/22/2024 CBC W/DIF F neutrophils 70.8 % 34.0-7 3.0 Not Available [facility] (Lab) [address] [facility], [place], [address], 12/23/2024 12:42:33 12/23/19 25 12/22/2024 CBC W/DIF F lymphocytes 22.4 % 15.0-5 0.0 Not Available [facility] (Lab) [address] [facility], [place], [address], 12/23/2024 12:42:33 12/23/19 25 12/22/2024 CBC W/DIF F monocytes 5.4 % 1.0-15 .0 Not Available [facility] (Lab) [address] [facility], [place], [address], 12/23/2024 12:42:33 12/23/19 25 12/22/2024 CBC W/DIF F eosinophils 1.0 % 0.0-8. 0 Not Available [facility] (Lab) [address] [place], [address], 12/23/2024 12:42:33 12/23/19 25 12/22/2024 CBC W/DIF F basophils 0.2 % 0.0-2. 0 Not Available [facility] (Lab) [address] [place], [address], 12/23/2024 12:42:33 12/23/19 25 12/22/2024 CBC W/DIF F immature granulocytes 0.2 % no define d refere nce range Immat ure Granu locyt es (IG) repre sents autom ated enume ratio n of Metam yeloc ytes, Myelo cytes and Promy elocy pat when IG is < 5%. Blast s are not inclu ded in IG and repor ansley separ ately if prese nt. Not Available [facility] (Lab) [address] [facility], [place], [address], 12/23/2024 12:42:33 12/23/19 25 12/22/2024 CBC W/DIF F absolute neutrophils 6.5 10'3/ uL 1.5-8. 0 Not Available [facility] (Lab) [address] [facility], [place], [address], 12/23/2024 12:42:33 12/23/19 25 12/22/2024 CBC W/DIF F absolute lymphocytes 2.1 10'3/ uL 1.0-4. 0 Not Available [facility] (Lab) [address] [facility], [place], [address], 12/23/2024 12:42:33 12/23/19 25 12/22/2024 CBC W/DIF F absolute monocytes 0.5 10'3/ uL 0.2-1. 0 Not Available [facility] (Lab) [address] [facility], [place], [address], 12/23/2024 12:42:33 12/23/19 25 12/22/2024 CBC W/DIF F absolute eosinophils 0.1 10'3/ uL 0.0-0. 6 Not Available [facility] (Lab) [address] [facility], [place], [address], 12/23/2024 12:42:33 12/23/19 25 12/22/2024 CBC W/DIF F absolute basophils 0.0 10'3/ uL 0.0-0. 3 Not Available [facility] (Lab) [address] [facility], [place], [address], 12/23/2024 12:42:33 12/23/19 25 12/22/2024 CBC W/DIF F absolute immature granulocytes 0.0 10'3/ uL 0.00-0 .10 Refer ence range s for nonbi nary/ inter sex or unspe cifie d gende r patie nts have not been estab lishe d. Jo cordon refer to the migue wing table for range s estab lishe d for cisge nder patie nts and evalu ate in the clini felicia brooke xt of the indiv idual patie nt: https :[email or web address] bhand book. nm.or g/gen derx Not Available [facility] (Lab) [address] [facility], [place], [address], 12/23/2024 12:42:33 12/23/19 25 12/22/2024 HEPAT ITIS B SURFA CE ANTIG EN hepatitis B surface antigen Non-re active non-re active This assay was perfo rmed using [employer] ratio n reage nts and test kits. Value s obtai todd with other assay metho ds or kits canno t be used inter white eably . Not Available [facility] (Lab) [address] [facility], [place], [address], 12/23/2024 12:42:34 12/23/19 25 12/22/2024 RUBEL LA IGG ANTIB DANIEL, QUANT rubella antibodies, IgG Reacti ve reacti ve Not Available [facility] (Lab) [address] [place], [address], 12/23/2024 12:42:34 12/23/19 25 12/22/2024 RUBEL LA IGG ANTIB DANIEL, QUANT rubella antibodies, IgG quant 28.6 IU/mL >=10 Non-r eacti ve (Non- Immun e) <10 IU/mL React kim (Immu ne) > or = 10 IU/mL Not Available [facility] (Lab) [address] [place], [address], 12/23/2024 12:42:34 12/23/19 25 12/22/2024 HIV 1/2 ANTIG EN/AN TIBOD Y, REFLE X CONFI RMATI ON HIV antigen/anti body Nonrea ctive nonrea ctive HIV-1 antig en and HIV-1 /HIV- 2 antib odies were not detec ansley. No labor atory evide nce of HIV infec tion. Not Available [facility] (Lab) [address] [facility], [place], [address], 12/23/2024 12:42:34 12/23/19 25 12/22/2024 HEPAT ITIS C ANTIB DANIEL SCREE N, REFLE X TO CONFI RMATI ON hepatitis C antibody Non-re active non-re active Antib odies to HCV Not Detec ansley, does not exclu de the possi bilit y of expos ure to HCV. Not Available [facility] (Lab) [address] [facility], [place], [address], 12/23/2024 12:42:35 12/23/19 25 12/22/2024 TYPE/ RH/SC REEN ABO/Rh type O POS Not Available [facility] (Lab) [address] [facility], [place], [address], 12/23/2024 12:42:35 12/23/19 25 12/22/2024 TYPE/ RH/SC REEN antibody screen NEG Not Available [facility] (Lab) [address] [facility], [place], [address], 12/23/2024 12:42:35 12/23/19 25 12/22/2024 TYPE/ RH/SC REEN exp date 2024 23:59 Not Available [facility] (Lab) [address] [facility], [place], [address], 12/23/2024 12:42:35 12/23/19 25 12/22/2024 HEMOG LOBIN A1C hemoglobin A1C 5.1 % 4.0-5. 6 The Ameri can Diabe pat Assoc iatio n recom mends that a prima ry goal of thera py tito d be a HBA1C of < 7% and that physi cians delmiul d reeva luate the treat ment regim en in patie nts with HBA1C value s consi stent ly > 8%. <5.7% Zayra l 5.7 - 6.4% Incre ased risk for diabe pat >=6.5 % Diagn ostic of diabe pat <7.0% Goal of thera py >8.0% Actio n sugge sted Not Available [facility] (Lab) [address] [facility], [place], [address], 12/23/2024 12:42:35 12/23/19 25 12/22/2024 RPR SCREE N, REFLE X TITER /CONF IRMAT ION RPR qualitative Nonrea ctive nonrea ctive Not Available [facility] (Lab) [address] [facility], [place], [address], 12/23/2024 12:42:36 01/05/20 25 01/04/2025 CULTU RE: URINE result report SEE RESULT S BELOW Test: Cultu re: Urine Speci men Sourc e: Urine - Clean Catch Speci men Type: Urine Speci men Date: 2024 1119 Resul t Date: 2024 0142 Resul t Statu s: Final resul t Abnor mal: No Resul ting Lab: [facility] [address] [facility] [address] Tel: CULTU RE ----- ----- ----- --- Cultu re resul t (>=3 organ isms prese nt) indic ates possi ble conta minat ion. Repea t cultu re if sympt oms indic ate. Not Available [facility] (Lab) [address] [facility], [place], [address], 01/06/2025 02:46:09 01/05/20 25 01/04/2025 drug scree n, urine Amphetamines : negati ve Not Available [address], [place], [address], 01/04/2025 12:26:50 01/05/20 25 01/04/2025 drug scree n, urine Cannabinoids : negati ve Not Available [address], [place], [address], 01/04/2025 12:26:50 01/05/20 25 01/04/2025 drug scree n, urine Cocaine: negati ve Not Available [address], [place], [address], 01/04/2025 12:26:50 01/05/20 25 01/04/2025 drug scree n, urine Opiates: negati ve Not Available [address], [place], [address], 01/04/2025 12:26:50 01/05/20 25 01/04/2025 drug scree n, urine Phenocyclidi ne: negati ve Not Available [address], [place], [address], 01/04/2025 12:26:50 01/05/20 25 01/04/2025 drug scree n, urine Barbiturates : negati ve Not Available [address], [place], [address], 01/04/2025 12:26:50 01/05/20 25 01/04/2025 drug scree n, urine Benzodiazepi justino: negati ve Not Available [address], [place], [address], 01/04/2025 12:26:50 01/05/20 25 01/04/2025 drug scree n, urine Ethanol: negati ve Not Available [address], [place], [address], 01/04/2025 12:26:50 01/05/20 25 01/04/2025 drug scree n, urine Hallucinogen s: negati ve Not Available [address], [place], [address], 01/04/2025 12:26:50 01/05/20 25 01/04/2025 drug scree n, urine Inhalants: negati ve Not Available [address], [place], [address], 01/04/2025 12:26:50 01/05/20 25 01/04/2025 drug scree n, urine Anabolic Steroids: negati ve Not Available [address], [place], [address], 01/04/2025 12:26:50 11/25/19 25 11/25/2024 US, obste tric, 1st trime ster No observ ation record ed. [address], [place], [address], 11/26/2024 13:42:37 11/25/19 25 11/25/2024 US, obste tric, trans vagin al No observ ation record ed. [email or web address] [address], [place], [address], 11/25/2024 18:35:31 12/07/19 25 12/07/2024 US, obste tric, 1st trime ster No observ ation record ed. [address], [place], [address], 12/08/2024 01:17:05 01/05/20 25 01/04/2025 US, obste tric, nucha l trans lucen cy No observ ation record ed. [email or web address] [address], [place], [address], 01/04/2025 12:55:57 01/05/20 25 01/04/2025 US, obste tric, nucha l trans lucen cy No observ ation record ed. [email or web address] [address], [place], [address], 01/04/2025 12:47:16 Result Notes None recorded. Problems Name Problem SNOMED Code Status Onset Date Resolution Date Notes Provider Name and Address Organization Details Recorded Time 74677333 Active 2024 Mariann Fernandez ingrid, [facility] 5 12:04:02 Mild intermitt ent asthma 462375415 Active albuterol PRN CONOR RESENDEZ MD [address], [place], [address], [facility] 5 12:31:51 Obesity 646002521 Active 34 week testing CONOR RESENDEZ MD [address], [place], [address], [facility] 5 12:32:01 Problem Notes None recorded. Procedures Surgical History Date Name Laterality Status Provider Name and Address Organization Details Recorded Time 3 Date of Last Pap Smear completed Maday Contreras [facility] 03/17/2023 12:53:04 8 hernia repair completed Melida Hernandez [facility] 02/11/2024 11:17:16 Imaging Results Imaging Date Name Status LastModified by Organization Details LastModified Time 11/25/2024 US, obstetric, 1st trimester completed [email or web address] [address], [place], [address], 11/26/2024 13:42:37 11/25/2024 US, obstetric, transvaginal completed [email or web address] [address], [place], [address], 11/25/2024 18:35:31 12/07/2024 US, obstetric, 1st trimester completed [email or web address] [address], [place], [address], 12/08/2024 01:17:05 01/04/2025 US, obstetric, nuchal translucency completed [email or web address] [address], [place], [address], 01/04/2025 12:55:57 01/04/2025 US, obstetric, nuchal translucency completed [email or web address] [address], [place], [address], 01/04/2025 12:47:16 Procedure Notes None recorded. Medical Equipment None Reported. Allergies Allergen ID Allergen Name Allergen Category Reaction Reaction Severity Criticality Documentation Date Start Date Code Code System Note Provider Name and Address Organization Details Recorded Time sulfameth oxazole / trimethop rim medicatio n Not available Not available Not available 02/24/2023 84387 RxNorm Carey quintero [facility] 12:10:33 86337 Substance with sulfonami de structure and antibacte rial mechanism of action (substanc e) medicatio n Not available Not available Not available 02/24/2023 10955 8003 SNOMED Carey quintero, [facility] 12:10:39 Medications Name Sig Start Date Stop Date Status Note LastModified by Organization Details LastModified Time amoxicillin 500 mg capsule TAKE 1 CAPSULE BY MOUTH EVERY 12 HOURS 02/24 completed Not Available Not Available Not Available prednisone 10 mg tablet TAKE 6 TABLETS ON DAY 1 DIRECTED ON PACKAGE AND DECREASE BY 1 TAB EACH DAY FOR A TOTAL OF 6 DAYS 02/24 completed Not Available Not Available Not Available fluconazole 150 mg tablet TAKE 1 TABLET BY MOUTH NOW, THEN REPEAT DOSE EVERY 72 HOURS IF SYMPTOMS PERSIST 02/24 completed Not Available Not Available Not Available ondansetron HCl 4 mg tablet TAKE 1 TABLET BY MOUTH EVERY 4 TO 6 HOURS NEEDED (INS MAX DAILY DOSE 1 TAB) active Not Available Not Available No t Available metronidazo le 500 mg tablet Take 1 tablet every 12 hours by oral route for 7 days. 03/17 completed Not Available Not Available Not Available prochlorper azine maleate 10 mg tablet TAKE 1 TABLET (10 MG TOTAL) BY MOUTH TWICE A DAY NEEDED FOR NAUSEA AND VOMITING active Not Available Not Available No t Available nystatin-tr iamcinolone 100,000 unit/gram-0 .1 % topical ointment APPLY TO THE AFFECTED AREA(S) BY TOPICAL ROUTE 2 TIMES PER DAY FOR 5 DAYS active Not Available Not Available No t Available famotidine 20 mg tablet TAKE 1 TABLET BY MOUTH TWICE A DAY active Not Available Not Available No t Available triamcinolo ne acetonide 0.1 % topical ointment APPLY A THIN LAYER TO THE AFFECTED AREA(S) BY TOPICAL ROUTE 2 TIMES PER DAY 03/17 completed Not Available Not Available Not Available nystatin 100,000 unit/gram topical cream APPLY TO THE AFFECTED AREA(S) BY TOPICAL ROUTE 2 TIMES PER DAY 03/17 completed Not Available Not Available Not Available epinephrine 0.3 mg/0.3 mL injection, auto-inject or INJECT 0.3 MG INTRAMUSC ULARLY ONCE A SINGLE DOSE MAY REPEAT ONCE active Not Available Not Available No t Available methylpredn isolone 4 mg tablets in a dose pack TAKE 6 TABLETS ON DAY 1 DIRECTED ON PACKAGE AND DECREASE BY 1 TAB EACH DAY FOR A TOTAL OF 6 DAYS 12/07 completed Not Available Not Available Not Available albuterol sulfate HFA 90 mcg/actuati on aerosol inhaler INHALE 2 PUFFS EVERY 4 HOURS BY INHALATIO N ROUTE NEEDED active Not Available Not Available No t Available ondansetron 4 mg disintegrat ing tablet DISSOLVE 1 TABLET ON TONGUE EVERY 8 HOURS NEEDED FOR NAUSEA AND VOMITING 04/26 completed Not Available Not Available Not Available metoclopram kunal 10 mg tablet TAKE 1 TABLET BY MOUTH FOUR TIMES A DAY NEEDED active Not Available Not Available No t Available amoxicillin 875 mg-potassiu m clavulanate 125 mg tablet TAKE 1 TABLET BY MOUTH TWICE A DAY FOR 10 DAYS 12/07 completed Not Available Not Available Not Available nitrofurant oin monohydrate /macrocryst als 100 mg capsule TAKE 1 CAPSULE BY MOUTH EVERY 12 HOURS WITH FOOD X5 DAYS 02/24 completed Not Available Not Available Not Available cholecalcif darci (vitamin D3) 1,250 mcg (50,000 unit) capsule Take 1 capsule every week by oral route. 02/10 completed Not Available Not Available Not Available Nextstellis 3 mg-14.2 mg (28) tablet Take 1 tablet every day by oral route for 90 days. 04/26 completed Not Available Not Available Not Available Vitals Date Recorded Body height Body mass index (BMI) Body weight Systolic blood pressure Diastolic blood pressure Provider Name and Address Organization Details Last Updated DateTime 12/07/2024 165.1 cm 51.1 kg/m2 201649.8 6 g 114 mm[Hg] 74 mm[Hg] [facility] 11:28:09 Date Recorded Body height Body mass index (BMI) Body weight Systolic blood pressure Diastolic blood pressure Provider Name and Address Organization Details Last Updated DateTime 01/04/2025 165.1 cm 51.8 kg/m2 853381.2 3 g 125 mm[Hg] 81 mm[Hg] [facility] 11:58:44 Social History Question Answer Notes LastModified by Organizat ion Details LastModified Time Tobacco Smoking Status Current Every Day Smoker Jaylyn Marshall ingrid, [facility] 07/16/2023 11:45:58 What Is Your Level Of Alcohol Consumption? Occasional Information not available 02/24/2023 Are You Blind Or Do You Have Difficulty Seeing? No Information not available 02/24/2023 In The 14 Days Before Symptom Onset, Have You Had Close Contact With A Laboratory-confir med COVID-19 While That Case Was Ill? No Information not available 02/11/2024 In The 14 Days Before Symptom Onset, Have You Had Close Contact With A Person Who Is Under Investigation For COVID-19 While That Person Was Ill? No Information not available 02/11/2024 Have You Been To An Area Known To Be High Risk For COVID-19? No Information not available 02/11/2024 Are You Deaf Or Do You Have Serious Difficulty Hearing? No Information not available 02/24/2023 Do You Use Your Seat Belt Or Car Seat Routinely? Yes [email or web address] Information not available 12/07/2024 Are You Sexually Active? Yes [email or web address] Information not available 12/07/2024 Do You Have Smoke And Carbon Monoxide Detectors In Your Home? Yes [email or web address] Information not available 12/07/2024 Do You Use Sunscreen Routinely? Yes [email or web address] Information not available 12/07/2024 Sex: Unknown Functional Status Question Answer Note LastModified by Organizat ion Details LastModified Time Do you have difficulty walking or climbing stairs? No [email or web address] Information not available 07/16/2023 Are you able to walk? [email or web address] Information not available 02/24/2023 Are you able to care for yourself? Yes [email or web address] Information not available 07/16/2023 Do you have difficulty dressing or bathing? No [email or web address] Information not available 07/16/2023 Mental Status None recorded. Family History Relationship Description Onset Age of this Age Resolved Age Notes LastModified by Organization Details LastModified Time Maternal Grandmother Hyperlipidem ia [email or web address] Not available 06/20 11:53:11 Maternal Grandmother Asthma [email or web address] Not available 11:53:11 Maternal Grandmother Malignant tumor of breast [email or web address] Not available 06/20 11:53:11 Maternal Grandmother Malignant tumor of cervix [email or web address] Not available 06/20 11:53:11 Maternal Grandmother Diabetes mellitus [email or web address] Not available 06/20 11:53:11 Maternal Grandfather Essential hypertension [email or web address] Not available 0 07/16/2023 11:53:11 Paternal Grandmother Mental disorder [email or web address] Not available 06/20 11:53:11 Mother Asthma [email or web address] Not availabl e 07/16/2023 11:53:11 Mother Diabetes mellitus [email or web address] Not available 06/20 11:53:11 Mother Mental disorder [email or web address] Not available 06/20 11:53:11 Paternal Aunt Mental disorder [email or web address] Not available 06/20 11:53:11 Sister Disorder of thyroid gland [email or web address] Not available 06/20 11:53:11 Sister Mental disorder [email or web address] Not available 06/20 11:53:11 Father Mental disorder [email or web address] Not available 06/20 11:53:11 Medical History Condition Response Allergies (Food, seasonal, environmental ) N Other N Drug/Latex Allergies/Reactions N Blood Transfusion N Breast Cancer N Dermatologic Disorders N Lung Disease N Defects or Inherited Disease N Breast Problem N Gestational Diabetes N Hematologic disorders N Anesthesia Complications N History of STI N Deep Vein Thrombosis N Polycystic ovary syndrome N Anxiety Disorder N Autoimmune disease N Arthritis N Polyps N Infertility N Acid Reflux (GERD) N History of abnormal pap N Cancer N Varicosities N Stroke N Neurologic/Epilepsy N Endometriosis N High Cholesterol N Fibromyalgia N Headaches Y Kidney Disease N Heart Problems N Thyroid Problems N Kidney or Bladder Problems N GI Problems N Eating Disorder N Anemia N Art (IVF or FET) N Psychiatric Illness N Ovarian Cancer N Diabetes N Pulmonary (TB, Asthma) N Hepatitis/Liver Disease N No Past Medical History N Eczema N Urinary Tract Infection N Abuse/Domestic Violence N Asthma N Trauma/Violence N Depression/ depression N Heart Disease N Pre-Eclampsia N Hypertension N Osteoporosis N Thrombophilias N Gynecological History Statement/Question Response Date of Last Mammogram Flow Light Date of LMP 10/08/2024 Was last menstrual period normal N STIs/STDs Y Date of Last Colonoscopy Desired Control Method Condoms Abnormal Pap N On BCP's at Conception? Y HPV Vaccine Y Colposcopy Duration of Flow (days) 5 Current Control Method BCPs Age at First Child 16 Are cycles usually normal N Sexually Active? Y Menses Monthly Y Date of DEXA bone scan Age of first menstrual cycle 7 Date of Last Pap Smear 03/17/2023 Sexual Problems? N LMP Definite Obstetrics History GPAL:G 2 P 1 0 0 1 Type Value Full Term 1 Living 1 Total 2 Past Encounters Encounter ID Performer Location Encounter Start Date Encounter Closed Date Diagnosis/Indication Diagnosis SNOMED-CT Code Diagnosis ICD10 Code Diagnosis Note [id number] SHIMA Arreaga [facility] [address] [address] 02/24/2023 11:30:50 02/24/2023 14:23:30 Vaginitis 20355595 N76.0 suspect BV/yeastva ginitis panel sentsti endocervic al testing sentvulvar care guidelines discussedR x sent, R/B/A discussedR TC for WWE, due for primary pap Time spent in visit is a total of 22 mins with at least 50% of visit consisting of counseling and review of plan of care Vaginal discharge 010315 006 N89.8 Venereal d isease screening 700756931 Z11.3 [id number] SHIMA Arreaga [facility] [address] [address] 03/17/2023 09:25:18 03/17/2023 10:56:39 Gynecologic examination 68813137 Z01.419 Take Calcium with Vitamin D 1200mg daily if not receiving in daily diet. It is strongly advised to have an annual flu shot and up can obtain at most pharmacies . If you have not had a TDap shot in the last 10 years you should obtain one as well. Discussed with patient & provided with informatio n regarding Gardisil vaccine to prevent the 4 strains for HPV that cause cervical cancer if under age 26. Encourage safe sexual practices, to use condoms and limit partners if not already in a monogamous relationsh ip. Do monthly self breast exams. Have mammogram yearly or every other year depending on family history. BRCA testing is now available for patients with strong genetic history of female cancer. If interested contact the office. Engage in daily exercise of low impact aerobic exercise 45-60 minutes 4-5 times weekly. Avoid tobacco and illicit drugs as well as using moderation with alcohol intake less than 1-2 8 oz beverages daily. This lifestyle behavior pattern will lead to less health conditions and longer life span. If BMI greater than 25 weight watchers or dietary consult advised. Patient received above instructio ns, and questions have been answered. If you have any questions please call or respond to this email. Patient was made aware of the patient portal and may obtain a paper copy of today's plan if desired. WWEBC - condoms, happy with this methodtrie d nexplanon previously and had negative mood changes, declined BC at this timePrimar y pap done todaySTI testing declineddi scussed hirsutism and management options, labs orderedmot her with ovarian cancer at unknown age, maternal grandmothe r with ovarian cancer and breast cancer at unknown age. Genetic testing discussed, handout given.RTC in 1 year or sooner if needed Adult heal th examination 252027360 Z00.00 Hirsutism 144394366 L68. 0 [id number] Tammie Mendez [facility] [address],[place] [address] 07/16/2023 11:45:30 07/16/2023 13:54:42 Venereal disease screening 020203335 Z11.3 blood STI panel orderedgc/ ct/trich testing sentsafe sexual practices discussed and condom use encouraged Time spent in visit is a total of 25 mins with at least 50% of visit consisting of counseling and review of plan of care. Sexually t ransmitted infectious disease 6677360 A64 [id number] [facility] [address],[place] [address] 02/11/2024 11:06:27 02/11/2024 11:57:11 Menorrhagia 090315551 N92.0 Today we agreed to start with updated lab work & start OCP Nextstilli s to improve cycles.IF, no cycle improvemen t AFTER 90d of BCP THEN, we will consider US. Discussed all control options in great detail. Pt would like to start ocp. She is aware of the risks and benefits. She does not have any medical condition that is contraindi cated with the use of estrogen containing control. Pt will start her pills on the first thursday following the start of her period. She is aware it is not effective for control the first month. She is also aware of the importance of taking at the same time every day. Encouraged use of condoms as the pill does not protect against STD's. Will return in 3 months for med check. Consent was read and signed. Pt verbalized understand ing. RTO x 3mosWill reach out with labs. Time spent in visit is a total of 30 mins with at least 50% of visit consisting of counseling and review of plan of care. Body mass index 40+ - severely obese 897729370 Z68.43 [id number] Tammie Mendez [facility] [address],[place] [address] 04/26/2024 13:48:25 04/26/2024 14:50:07 Dysmenorrhea 272495980 N94.6 recommende d progestero ne only options d/t migraine w/ auraall options discusseds he would like to switch to slyndrx sent, r/b/a reviewedme d check in 4 months Discussed all control options in great detail. Pt would like to start POP. She is aware of the risks and benefits. She has contraindi cations to use of OCP or other estrogen containing hormonal therapy. . She is aware it is not effective for control the first month. She is also aware of the importance of taking at the same time every day. Encouraged use of condoms as the pill does not protect against STI's. Will return in 4 months for med check. Pt verbalized understand ing. Time spent in visit is a total of 25 mins with at least 50% of visit consisting of counseling and review of plan of care. 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 Exam today within normal limits.2. Ultrasound today confirms GA and viability. EDC . RAJAN/Porter a testing done: will f/u as indicated. 4. ACOG guidelines and plan of care for reviewed with patient. All questions answered.5 . Return to office at 12 weeks for new OB visit6. Will need new OB labs at next visit.7. Genetic screening: desires at 10 weeks, orders given today. [id number] [facility] [address] [address] 01/04/2025 10:46:37 01/04/2025 11:49:00 screening 012240195 Z36.82 Z3A.12 [id number] CONOR RESENDEZ MD [facility] [address] [address] 01/04/2025 10:46:48 01/04/2025 12:36:54 Nausea and vomiting in 9289075051 O21.9 Asthma 529566478 J45.90 9 Routine an tenatal care 491326250 Z34.91 screening 2437 87402 Z36.0 Maternal o besity complicating , childbirth and the puerperium, antepartum 3630292049 07 O99.211 Gestation period, 12 weeks 82837543 Z3A.12 Health Concerns Section Related Observation LastModified by Organization Detai ls LastModified Time None Recorded Concern Status LastModified by Organization Details LastModified Time None Recorded Advance Directives Directive None Recorded Payers Encounter Date Sequence Insurance Name Policy Number Policy Clinton Covered Member ID Clinton Member ID Guarantor Name 11/25/2024 1 [facility] ON OR AFTER 04/18/21 (MEDICAID REPLACEMENT - HMO) Amanda Kwong [id number] Amanda Kwong 12/07/2024 1 [facility] ON OR AFTER 04/18/21 (MEDICAID REPLACEMENT - HMO) Amanda Kwong [id number] Amanda Kwong 12/07/2024 1 [facility] ON OR AFTER 04/18/21 (MEDICAID REPLACEMENT - HMO) Amanda Kwong [id number] Amanda Kwong 01/04/2025 1 [facility] ON OR AFTER 04/18/21 (MEDICAID REPLACEMENT - HMO) Amanda Kwong [id number] Amanda Kwong 01/04/2025 1 [facility] ON OR AFTER 04/18/21 (MEDICAID REPLACEMENT - HMO) Amanda Kwong [id number] Amanda Kwong Notes Date Note Type Note Provider Name and Address Organization Details Recorded Time 12/07/2024 text/html Presents to the office today to confirm . Patient denies any problems up to this point with her . Patient denies cramping or vaginal bleeding. Worsening nausea, zofran sent out yesterday. Mild intermittent asthma: rare albuterol use G1: Hx of migraines, well controlled currently. Patient is in a relationship with Everardo. Lives with partner and son. Patient works as a grade school teacher. Denies tobacco/EtOH/illic its. CONOR RESENDEZ MD [address], [place], [address], [facility] 12/07/2024 12:32:29 OBGyn Episode Ob Episode Information Episode Created Date Number of Fetuses Patient Bloodtype Patient rh Status Prepregnancy Weight lbs Domestic Partner Domestic Partner Phone Father Name Executive Secretary Status 01/05/20 25 1 O Positive 311 Everardo Long OPEN Fetus Data First Name Last Name Admitted to NICU Weight (g) Sex Living Outcome Pediatric Complications Fetus ID Race Codes Race Delivery Type [id number] Problems Problem Notes Problem Name Start Date End Date Resolution Snomed Code Not e Mild intermittent asthma [id number] albuterol PRN Obesity 955224581 34 week an tenatal testing Cam Calculation Initial Cam Date Initial Exam Date Initial Exam Provider Initial Ultrasound Date Last Menstrual Period Date Ultra Sound Weeks Gestation 07/15/2025 01/04/2025 12/07/2024 10/08/2024 8 Eighteen To Twenty Week Cam Update Ultra Sound Date Fundal Height At Umbil Quickening Date Ultra Sound Latest Weeks Gestation Final Cam Confirmed By Final Cam Confirmed Date Final Cam Date Ultra Sound Latest Days Gestation 0 [email or web address] 01/04/2025 07/15/20 25 0 Pre-estela Flowsheet Flowsheet Date 01/04/2025 Claros Score Blood Edema Fundus Height Fundus Units Glucose Ketones Leukocytes Nitrite Labor Signs Protein Cervic Dilation Cervic Effacement Cervic Station Type Weight in lbs Pre/Post Dialysis Refused Weight 311.281709798319 BP Diastolic BP Location Tested BP Systolic BP Type 81 L arm 125 sitting Fetus Heart Rate Present A 158 Fetus Movement Comments Patient presents to [facility] care. Patient reports increasing nausea, still present with zofran. Will add reglan. Having some dizzy spells, Hgb normal, will start more elctrolyte drinks. Having bilateral leg sweling, buying compression socks. Hx of normal , uncomplicated. Hx of mild intermittent asthma, needs inhaler refill. otherwise uncomplicated. No nausea or cramping. NT/NB wnl today, . Will draw today with new OB labs. RTC 4 weeks for routine care. Menstrual History Last Menstrual Date Menses Monthly On Bcp Conception Prior Menses Frequency Hcg Plus Date Menarche Onset Age 1210/08/2024 Delivery Information Delivery Date Delivery Type Labor Anesthesia Weeks Gestation Incision Type Labor Labor Length Hrs Delivered By Post Complications Tubal Sterilization Discharge Date Comments Discharge Information Feeding Method Contraceptive Method Maternal HG B and HCT Levels Ob Episode Information Episode Created Date Number of Fetuses Patient Bloodtype Patient rh Status Prepregnancy Weight lbs Domestic Partner Domestic Partner Phone Father Name Executive Secretary Status 02/11/20 24 1 CLOSED Fetus Data First Name Last Name Admitted to NICU Weight (g) Sex Living Outcome Pediatric Complications Fetus ID Race Codes Race Delivery Type 3430.06 2704 M Full Term [id number] Vaginal Delivery Cam Calculation Initial Cam Date Initial Exam Date Initial Exam Provider Initial Ultrasound Date Last Menstrual Period Date Ultra Sound Weeks Gestation 0 Eighteen To Twenty Week Cam Update Ultra Sound Date Fundal Height At Umbil Quickening Date Ultra Sound Latest Weeks Gestation Final Cam Confirmed By Final Cam Confirmed Date Final Cam Date Ultra Sound Latest Days Gestation 0 0 Menstrual History Last Menstrual Date Menses Monthly On Bcp Conception Prior Menses Frequency Hcg Plus Date Menarche Onset Age Delivery Information Delivery Date Delivery Type Labor Anesthesia Weeks Gestation Incision Type Labor Labor Length Hrs Delivered By Post Complications Tubal Sterilization Discharge Date Comments 7 40 Discharge Information Feeding Method Contraceptive Method Maternal HG B and HCT Levels
--- OUTSIDE RECORDS SUMMARY | 2025-01-16 19:06 | XMS_ITS | Clinical Summary ---
Author Organization [facility] Address [address] [place] [address] Care Team Providers Care Fixture Maker Name Role Phone Velvet López NP Primary Care Provider [phone] Allergies Active Allergy Reactions Criticality Noted Date Comments Venom-Honey Bee Swelling Medium 08/11/2019 Sulfa (Sulfonamide Antibiotics) Palpitations,Rash Medium 08/11/[address] (CYMBALTA) 60 mg capsule Take 60 mg by mouth daily Active DULoxetine DR (CYMBALTA) 20 mg capsule Take 20 mg by mouth daily Active lamoTRIgine (LaMICtal) 25 mg tablet Take 25 mg by mouth daily Active etonogestrel (NEXPLANON) 68 mg implantIndications : Contraception Active raNITIdine (ZANTAC) 150 mg tablet Take 150 mg by mouth 2 (two) times a day Active benzonatate (TESSALON) 200 mg capsuleIndications :Acute viral syndrome Take 1 capsule (200 mg total) by mouth 3 (three) times a day as needed for cough 30 capsule 2 Active prochlorperazine (COMPAZINE) 10 mg tablet Take 1 tablet (10 mg total) by mouth 2 (two) times a day as needed for nausea or vomiting 10 tablet 5 Active Active Problems Comments Yes No known active problems Encounters Date Type Department Care Team Description 01/01/2025 10:11 PM CDT - 01/01/2025 11:25 PM CDT Emergency [facility] Emergency Department [address] [place] [address] Discharge Disposition: Left without being seen 11/18/2024 10:48 PM WATER QUALITY TESTER - 11/19/2024 1:34 AM WATER QUALITY TESTER Emergency [facility] Emergency Department [address] [place] [id number] Gareth Evans MD Hyperemesis gravidarum (Primary Dx); Less than 8 weeks gestation of Discharge Disposition: Discharge to home or self care from Last 3 Months Social History Tobacco Use Types Packs/Day Years Used Date Smoking Tobacco: Never Assessed Smokeless Tobacco: Never Comments:vapes Alcohol Use Standard Drinks/Week Comments Yes 0 (1 standard drink = 0.6 oz pur e alcohol) socially Personal Safety Answer Date Recorded Have you ever been in or are you currently in a harmful physical or emotional relationship or is someone making you feel afraid or unsafe? Denies 11/18/2024 Comments Yes Sex and Gender Information Value Date Recorded Sex Assigned at Not on file Legal Sex Female 2:49 PM CDT Gender Identity Not on file Sexual Orientation Not on file Obstetrics History Para Term AB IAB SAB Ectopic Multiple Livin g Live Births 1 Date Outcome GA Total Labor Labor/2nd/3rd Weight Sex Type Anes PTL Almita A1 A5 Name Clin Current Last Filed Vital Signs Vital Sign Reading Time Taken Comments Blood Pressure 110/68 01/01/2025 8:21 PM CDT Pulse 85 01/01/2025 8:21 PM CDT Temperature 36.2 C (97.1 F) 01/01/2025 8:21 PM CDT Respiratory Rate 18 01/01/2025 8:21 PM CDT Oxygen Saturation 100% 01/01/2025 8:21 PM CDT Inhaled Oxygen Concentration - - Weight 137.4 kg (303 lb) 01/01/2025 8:21 PM CDT Height 165.1 cm (5' 5 ) 01/01/2025 8:21 PM CDT Body Mass Index 50.42 01/01/2025 8:21 PM CDT Plan of Treatment Health Maintenance Due Date Last Done Comments Cervical Cancer Screening 1998 Depression Screening 1998 Hepatitis C Screening 1998 Varicella Vaccines (2 of 2 - 2-dose childhood series) 2002 05/14/1999 DTaP/Tdap/Td Vaccine (5 - Tdap) 2009 04/08/1999, 1998, 1998, Additional history exists HPV Vaccines (1 - 3-dose series) 2013 Regular Well Visit/Exam 18-64 2016 Influenza Vaccine (#1) 2024 Hepatitis B Screening Completed 04/08/1999 , 1998, 1998 Pneumococcal vaccine <65 Aged Out No longer eligible based on patient's age to complete this topic Procedures Procedure Name Priority Date/Time Associated Diagnosis Comments XR CHEST 1 VIEW ED 01/01/2025 9:18 PM CDT EGFR STAT 01/01/2025 8:30 PM CDT DIFFERENTIAL AUTO STAT 01/01/2025 8:3 0 PM CDT TROPONIN T HIGH-SENSITIVITY SERIES (BASELINE, 2HR, 4HR, 6HR) STAT 01/01/2025 8:30 PM CDT COMPREHENSIVE METABOLIC PANEL STAT 01/01/2025 8:30 PM CDT CBC WITH AUTO DIFFERENTIAL STAT 01/01/2025 8:30 PM CDT ECG 12-LEAD STAT 01/01/2025 8:23 PM CDT US OB UNDER 14 WEEKS W ENDOVAGINAL ED 11/19/2024 12:46 AM WATER QUALITY TESTER ABO/RH STAT 11/18/2024 11:12 PM WATER QUALITY TESTER EGFR STAT 11/18/2024 9:07 PM WATER QUALITY TESTER DIFFERENTIAL AUTO STAT 11/18/2024 9:0 7 PM WATER QUALITY TESTER HCG, BLOOD, QUANTITATIVE STAT 11/18/2024 9:07 PM WATER QUALITY TESTER LIPASE STAT 11/18/2024 9:07 PM WATER QUALITY TESTER COMPREHENSIVE METABOLIC PANEL STAT 11/18/2024 9:07 PM WATER QUALITY TESTER CBC WITH AUTO DIFFERENTIAL STAT 11/18/2024 9:07 PM WATER QUALITY TESTER from Last 3 Months Results * XR Chest 1 Vw Portable (if patient condition/safety warrant portable) (01/01/2025 9:18 PM CDT) Anatomical Region Laterality Modality Body, Chest N/A Computed Radiogr aphy 01/01/2025 9:28 PM CDT Narrative 01/01/2025 9:31 PM CDT EXAM DESCRIPTION: XR CHEST 1 VIEW REASON FOR STUDY: chest pain Pt to triage c/o CP and SOB x 1.5 hours. Pt is 12 weeks . Just Recently quit Smoking. TECHNIQUE: Single portable radiographic view(s) of the chest. COMPARISON: 08/11/2019 FINDINGS: No focal pneumonic consolidation or pleural effusion. No pulmonary edema or pneumothorax. Cardiomediastinal silhouette is similar compared to prior examination accounting for differences in portable technique. IMPRESSION: Clear lungs bilaterally. THIS IS AN ELECTRONICALLY VERIFIED FINAL REPORT 01/01/2025 9:31 PM - Electronically signed by Gallo Sosa M.D. BB: SHAKIR Report ID: [id number] Reading Location: [id number] Procedure Note Gallo Sosa MD PhD - 01/01/2025 EXAM DESCRIPTION: XR CHEST 1 VIEW REASON FOR STUDY: chest pain Pt to triage c/o CP and SOB x 1.5 hours. Pt is 12 weeks .Just Recently quit Smoking. TECHNIQUE: Single portable radiographic view(s) of the chest. COMPARISON: 08/11/2019 FINDINGS: No focal pneumonic consolidation or pleural effusion. No pulmonary edemaor pneumothorax. Cardiomediastinal silhouette is similar compared to prior examination accounting for differences in portable technique. IMPRESSION: Clear lungs bilaterally. THIS IS AN ELECTRONICALLY VERIFIED FINAL REPORT 01/01/2025 9:31 PM - Electronically signed by Gallo Sosa M.D. BB: SHAKIR Report ID: [id number] Reading Location: [id number] Reagan Rosas MD IMG XR PROCEDURES Final Res ult * Troponin T high-sensitivity series (baseline, 2hr, 4hr, 6hr) (01/01/2025 8:30 PM CDT) Trop T hs <6 <=14 ng/L Comment: Interpretive Data For further hscTnT resources including the diagnostic algorithm and an aid in interpretation, copy and paste this link: [email or web address].testcatalog.org/show/[email or web address] Current Interpretive Data last revised 2020. Blood 01/01/2025 8:30 PM CDT 01/01/2025 8:38 PM CDT Reagan Rosas MD LAB BLOOD ORDERABLES Edited Result - Final [facility] [address] Department [place] [address] * eGFR (01/01/2025 8:30 PM CDT) eGFR >90 >=60 mL/min/1. 73 m2 Comment: Interpretive Data Reference Interval Normal >/= 90 mL/min/1.73m2 Mildly decreased* 60 - 89 mL/min/1.73m2 Mildly to moderately decreased 45 - 59 mL/min/1.73m2 Moderately to severely decreased 30 - 44 mL/min/1.73m2 Severely decreased 15 - 29 mL/min/1.73m2 Kidney Failure < 15 mL/min/1.73m2 *Relative to young adult level Estimated glomerular filtration rate is determined by the 2020 CKD-EPI equation recommended by the National Kidney Foundation (A Unifying Approach to GFR Estimation: Recommendations of the NKF-ASK Task Force on Reassessing the Inclusion of Race in Diagnosing Kidney Disease, JASN 2020). The CKD-EPI equation should not be used for patients with unstable renal function and has not been validated in children and those over 70. Current interpretive data was last reviewed 2021. Blood 01/01/2025 8:30 PM CDT 01/01/2025 8:38 PM CDT Reagan Rosas MD LAB BLOOD ORDERABLES Final Result [facility] ([place]) 1 [facility] Department [place] [address] * Differential, auto (01/01/2025 8:30 PM CDT) Neutrophil abs 6.2 1.5 - 6.5 K/cumm Imm gran abs 0.1 0.0 - 0.1 K/cumm [facility] ([place]) Lymphocyte abs 2.7 0.8 - 3.3 K/cumm [facility] ([place]) Monocyte abs 0.6 0.2 - 0.8 K/cumm [facility] ([place]) Eosinophil abs 0.2 0.0 - 0.5 K/cumm [facility] ([place]) Basophil abs 0.0 0.0 - 0.1 K/cumm [facility] ([place]) Neutrophil pct 63.4 % [facility] ([place]) Comment: Interpretive Data Percent cell count reference ranges are not reported, since discordance with absolute values may lead to misinterpretation of CBC data. Current Interpretive Data was last revised on 2018. Imm gran pct 0.5 % [facility] ([place]) Comment: Interpretive Data Percent cell count reference ranges are not reported, since discordance with absolute values may lead to misinterpretation of CBC data. Current Interpretive Data was last revised on 2018. Lymphocyte pct 27.4 % [facility] ([place]) Comment: Interpretive Data Percent cell count reference ranges are not reported, since discordance with absolute values may lead to misinterpretation of CBC data. Current Interpretive Data was last revised on 2018. Monocyte pct 6.1 % [facility] ([place]) Comment: Interpretive Data Percent cell count reference ranges are not reported, since discordance with absolute values may lead to misinterpretation of CBC data. Current Interpretive Data was last revised on 2018. Eosinophil pct 2.4 % [facility] ([place]) Comment: Interpretive Data Percent cell count reference ranges are not reported, since discordance with absolute values may lead to misinterpretation of CBC data. Current Interpretive Data was last revised on 2018. Basophil pct 0.2 % [facility] ([place]) Comment: Interpretive Data Percent cell count reference ranges are not reported, since discordance with absolute values may lead to misinterpretation of CBC data. Current Interpretive Data was last revised on 2018. Blood 01/01/2025 8:30 PM CDT 01/01/2025 8:38 PM CDT us Reagan Rosas MD LAB BLOOD ORDERABLES Final Result [facility] ([place]) 1 [facility] Department [place] [address] * (ABNORMAL) CBC with auto differential (01/01/2025 8:30 PM CDT) WBC 9.8 3.8 - 9.9 K/cumm Hgb 11.9 11.9 - 15.5 g/dL [facility] ([place]) Hct 34.0(L) 35.6 - 45.5 % [facility] ([place]) Plt 257 150 - 400 K/cumm [facility] ([place]) MPV 9.6 9.1 - 12.3 fL [facility] RBC 3.69(L) 3.90 - 5.20 M/cumm [facility] ([place]) MCV 92.1 81.3 - 96.4 fL [facility] ([place]) MCH 32.2 27.1 - 33.3 pg [facility] ([place]) MCHC 35.0 32.3 - 35.7 g/dL [facility] ([place]) RDW CV 12.6 11.1 - 14.9 % [facility] ([place]) RDW SD 42.6 35.7 - 48.1 fL [facility] ([place]) NRBC abs 0.00 0.00 - 0.01 K/cumm [facility] ([place]) Blood Venous blood specimen / Unknown 01/01/2025 8:30 PM CDT 01/01/2025 8:38 PM CDT Reagan Rosas MD LAB BLOOD ORDERABLES Final Result [facility] ([place]) 1 [facility] Department [place] [address] * (ABNORMAL) Comprehensive metabolic panel (01/01/2025 8:30 PM CDT) Sodium 137 135 - 145 mmol/L Potassium, pl 3.8 3.3 - 4.9 mmol/L [facility] ([place]) Chloride 103 97 - 110 mmol/L [facility] ([place]) CO2 20(L) 22 - 32 mmol/L [facility] ([place]) Anion gap 15 2 - 15 mmol/L [facility] ([place]) BUN 10 6 - 25 mg/dL [facility] ([place]) Creatinine 0.71 0.60 - 1.10 mg/dL [facility] ([place]) Glucose 93 70 - 199 mg/dL [facility] ([place]) Comment: Interpretive Data Fasting glucose >/= 126 mg/dl is diagnostic for diabetes. Fasting is defined as no caloric intake for at least 8 hours. Fasting glucose between 100 mg/dl to 125 mg/dl is diagnostic of prediabetes. In a patient with classic symptoms of hyperglycemia or hyperglycemic crisis, a random glucose >/= 200 mg/dl is diagnostic for diabetes. In the absence of unequivocal hyperglycemia, results should be confirmed by repeat testing. The classification and Diagnosis of Diabetes Diabetes Care 2021; 46: S19-S40. Current interpretive data was last revised 2022. Calcium 9.0 8.5 - 10.3 mg/dL [facility] ([place]) Bilirubin, total <0.2 0.1 - 1.2 mg/dL [facility] ([place]) Protein, pl 6.3(L) 6.5 - 8.5 g/dL [facility] ([place]) Albumin 3.4(L) 3.5 - 5.0 g/dL [facility] ([place]) Alk phos 63 40 - 130 Units/L [facility] ([place]) ALT 15 7 - 45 Units/L [facility] ([place]) AST 13 10 - 45 Units/L [facility] ([place]) Blood 01/01/2025 8:30 PM CDT 01/01/2025 8:38 PM CDT Reagan Rosas MD LAB BLOOD ORDERABLES Final Result Performing Organization Address City/[facility] Co de Phone Number [facility] ([place]) 1 [facility] Department [place] [address] * ECG 12 lead (01/01/2025 8:23 PM CDT) 01/01/2025 8:23 PM CDT Narrative [facility] 01/02/2025 6:47 AM CDT Vent Rate: 81 bpm RR Interval: 740 msec [place] Interval: 169 msec QRS Duration: 97 msec QT Interval: 369 msec QTC Interval: 406 msec P-R-T [place]: 25 - 39 - 26 degrees IMPRESSION: SINUS RHYTHM NORMAL ECG Electronically Signed By: Jimenez Toledo MD Reagan Rosas MD ECG ORDERABLES Final Resul t Performing Organization Address [facility] de Phone Number Publicate [employer] [facility] * US Ob Under 14 Weeks W Endovaginal (11/19/2024 12:46 AM WATER QUALITY TESTER) Anatomical Region Laterality Modality Abdomen N/A Ultrasound 11/19/2024 12:5 8 AM WATER QUALITY TESTER Narrative 11/19/2024 12:59 AM WATER QUALITY TESTER EXAM DESCRIPTION: US OB UNDER 14 WEEKS W ENDOVAGINAL REASON FOR STUDY: pain Beta-hC TECHNIQUE: Transabdominal and transvaginal images acquired of the pelvis. COMPARISON: None FINDINGS: UTERUS: Intrauterine gestational sac measuring 1 cm corresponding to 5 week 5 day age. No definite pole is seen. OTHER PELVIS: Ovaries not seen. IMPRESSION: 1. Small intrauterine gestational sac is evidence for early . No definite pole is seen at this stage. 2. Ovaries not visualized. THIS IS AN ELECTRONICALLY VERIFIED FINAL REPORT 11/19/2024 12:59 AM - Electronically signed by Eusebio Duff M.D. AR: ERNIE Report ID: [id number] Reading Location: [id number] Procedure Note Eusebio Duff MD - 11/19/2024 EXAM DESCRIPTION: US OB UNDER 14 WEEKS W ENDOVAGINAL REASON FOR STUDY: pain Beta-hC TECHNIQUE: Transabdominal and transvaginal images acquired of thepelvis. COMPARISON: None FINDINGS: UTERUS: Intrauterine gestational sac measuring 1 cm corresponding to 5week 5 day age. No definite pole is seen. OTHER PELVIS: Ovaries not seen. IMPRESSION: 1. Small intrauterine gestational sac is evidence for early .No definite pole is seen at this stage. 2. Ovaries not visualized. THIS IS AN ELECTRONICALLY VERIFIED FINAL REPORT 11/19/2024 12:59 AM - Electronically signed by Eusebio Duff M.D. AR: ERNIE Report ID: [id number] Reading Location: [id number] us Gareth Evans MD IMG OB US PROCEDURES Final R esult * ABO/Rh (11/18/2024 11:12 PM WATER QUALITY TESTER) ABO/Rh O Positive Blood 11/18/2024 11:1 2 PM WATER QUALITY TESTER 11/18/2024 11:15 PM WATER QUALITY TESTER us Gareth Evans MD LAB BLOOD BANK TEST ORDERABL ES Final Result [facility] [place] [address] [facility] Department [place] [address] * eGFR (11/18/2024 9:07 PM WATER QUALITY TESTER) eGFR >90 >=60 mL/min/1. 73 m2 Comment: Interpretive Data Reference Interval Normal >/= 90 mL/min/1.73m2 Mildly decreased* 60 - 89 mL/min/1.73m2 Mildly to moderately decreased 45 - 59 mL/min/1.73m2 Moderately to severely decreased 30 - 44 mL/min/1.73m2 Severely decreased 15 - 29 mL/min/1.73m2 Kidney Failure < 15 mL/min/1.73m2 *Relative to young adult level Estimated glomerular filtration rate is determined by the 2020 CKD-EPI equation recommended by the National Kidney Foundation (A Unifying Approach to GFR Estimation: Recommendations of the NKF-ASK Task Force on Reassessing the Inclusion of Race in Diagnosing Kidney Disease, JASN 2020). The CKD-EPI equation should not be used for patients with unstable renal function and has not been validated in children and those over 70. Current interpretive data was last reviewed 2021. Blood 11/18/2024 9:07 PM WATER QUALITY TESTER 11/18/2024 9:12 PM WATER QUALITY TESTER us Gareth Evans MD LAB BLOOD ORDERABLES Final R esult [facility] ([place]) 1 [facility] Department [place] [address] * (ABNORMAL) Differential, auto (11/18/2024 9:07 PM WATER QUALITY TESTER) Neutrophil abs 7.9(H) 1.5 - 6.5 K/cumm Imm gran abs 0.1 0.0 - 0.1 K/cumm [facility] ([place]) Lymphocyte abs 3.6(H) 0.8 - 3.3 K/cumm [facility] ([place]) Monocyte abs 0.7 0.2 - 0.8 K/cumm [facility] ([place]) Eosinophil abs 0.2 0.0 - 0.5 K/cumm [facility] ([place]) Basophil abs 0.0 0.0 - 0.1 K/cumm [facility] ([place]) Neutrophil pct 62.9 % [facility] ([place]) Comment: Interpretive Data Percent cell count reference ranges are not reported, since discordance with absolute values may lead to misinterpretation of CBC data. Current Interpretive Data was last revised on 2018. Imm gran pct 0.5 % [facility] ([place]) Comment: Interpretive Data Percent cell count reference ranges are not reported, since discordance with absolute values may lead to misinterpretation of CBC data. Current Interpretive Data was last revised on 2018. Lymphocyte pct 29.1 % [facility] ([place]) Comment: Interpretive Data Percent cell count reference ranges are not reported, since discordance with absolute values may lead to misinterpretation of CBC data. Current Interpretive Data was last revised on 2018. Monocyte pct 5.9 % [facility] ([place]) Comment: Interpretive Data Percent cell count reference ranges are not reported, since discordance with absolute values may lead to misinterpretation of CBC data. Current Interpretive Data was last revised on 2018. Eosinophil pct 1.4 % [facility] ([place]) Comment: Interpretive Data Percent cell count reference ranges are not reported, since discordance with absolute values may lead to misinterpretation of CBC data. Current Interpretive Data was last revised on 2018. Basophil pct 0.2 % [facility] ([place]) Comment: Interpretive Data Percent cell count reference ranges are not reported, since discordance with absolute values may lead to misinterpretation of CBC data. Current Interpretive Data was last revised on 2018. Blood 11/18/2024 9:07 PM WATER QUALITY TESTER 11/18/2024 9:12 PM WATER QUALITY TESTER us Gareth Evans MD LAB BLOOD ORDERABLES Final R esult [facility] ([place]) 1 [facility] Department [place] [address] * (ABNORMAL) CBC with auto differential (11/18/2024 9:07 PM WATER QUALITY TESTER) WBC 12.5(H) 3.8 - 9.9 K/cumm Hgb 12.2 11.9 - 15.5 g/dL [facility] ([place]) Hct 35.5(L) 35.6 - 45.5 % [facility] ([place]) Plt 277 150 - 400 K/cumm [facility] ([place]) MPV 9.3 9.1 - 12.3 fL [facility] ([place]) RBC 3.87(L) 3.90 - 5.20 M/cumm [facility] ([place]) MCV 91.7 81.3 - 96.4 fL [facility] ([place]) MCH 31.5 27.1 - 33.3 pg [facility] ([place]) MCHC 34.4 32.3 - 35.7 g/dL [facility] ([place]) RDW CV 13.0 11.1 - 14.9 % [facility] ([place]) RDW SD 42.5 35.7 - 48.1 fL [facility] ([place]) NRBC abs 0.00 0.00 - 0.01 K/cumm [facility] ([place]) Blood Venous blood specimen / Unknown 11/18/2024 9:07 PM WATER QUALITY TESTER 11/18/2024 9:12 PM WATER QUALITY TESTER Gareth Evans MD LAB BLOOD ORDERABLES Final R esult Performing Organization Address City/[facility]/ZIP Co de Phone Number [facility] ([place]) 1 [facility] [email or web address] [address] * (ABNORMAL) hCG, blood, quantitative (11/18/2024 9:07 PM WATER QUALITY TESTER) [facility] hCG, quant 7,920.0(H ) 0.0 - 5.0 IUnits/L Comment: Interpretive Data Male: < 5 IU/L Non- premenopausal Female: <5 IU/L The Ryan hCG Beta Quant assay procedure was used. Results from different manufacturers or methods may not be comparable. Serial testing should be performed using the same method. Interpretive Data was last revised on 2023 Blood 11/18/2024 9:07 PM WATER QUALITY TESTER 11/18/2024 9:12 PM WATER QUALITY TESTER Gareth Evans MD LAB BLOOD ORDERABLES Final R esult Performing Organization Address City/[facility]/ZIP Co de Phone Number [facility] ([place]) 1 [facility] Department of [employer] [place] [address] * Lipase (11/18/2024 9:07 PM WATER QUALITY TESTER) Lipase 21 10 - 99 Units/L Blood Venous blood specimen / Unknown 11/18/2024 9:07 PM WATER QUALITY TESTER 11/18/2024 9:12 PM WATER QUALITY TESTER us Gareth Evans MD LAB BLOOD ORDERABLES Final R esult [facility] 1 [facility] Department [place] [address] * (ABNORMAL) Comprehensive metabolic panel (11/18/2024 9:07 PM WATER QUALITY TESTER) Sodium 137 135 - 145 mmol/L Potassium, pl 3.6 3.3 - 4.9 mmol/L [facility] ([place]) Chloride 104 97 - 110 mmol/L [facility] ([place]) CO2 23 22 - 32 mmol/L [facility] ([place]) Anion gap 10 2 - 15 mmol/L [facility] ([place]) BUN 10 6 - 25 mg/dL [facility] Creatinine 0.77 0.60 - 1.10 mg/dL [facility] ([place]) Glucose 100 70 - 199 mg/dL [facility] ([place]) Comment: Interpretive Data Fasting glucose >/= 126 mg/dl is diagnostic for diabetes. Fasting is defined as no caloric intake for at least 8 hours. Fasting glucose between 100 mg/dl to 125 mg/dl is diagnostic of prediabetes. In a patient with classic symptoms of hyperglycemia or hyperglycemic crisis, a random glucose >/= 200 mg/dl is diagnostic for diabetes. In the absence of unequivocal hyperglycemia, results should be confirmed by repeat testing. The classification and Diagnosis of Diabetes Diabetes Care 2021; 46: S19-S40. Current interpretive data was last revised 2022. Calcium 8.4(L) 8.5 - 10.3 mg/dL [facility] ([place]) Bilirubin, total <0.2 0.1 - 1.2 mg/dL [facility] ([place]) Protein, pl 6.2(L) 6.5 - 8.5 g/dL [facility] ([place]) Albumin 3.8 3.5 - 5.0 g/dL [facility] ([place]) Alk phos 71 40 - 130 Units/L [facility] ([place]) ALT 26 7 - 45 Units/L [facility] ([place]) AST 16 10 - 45 Units/L [facility] ([place]) Blood 11/18/2024 9:07 PM WATER QUALITY TESTER 11/18/2024 9:12 PM WATER QUALITY TESTER Gareth Evans MD LAB BLOOD ORDERABLES Final R esult [facility] ([place]) 1 [facility] Department [place] [address] from Last 3 Months Insurance [facility] Care Teams Fixture Maker Relationship Specialty Start Date End Date Velvet López NP PCP - General 08/11/19
--- OUTSIDE RECORDS SUMMARY | 2025-01-16 19:06 | XMS_ITS | Referral Summary ---
Author Organization [facility] Address [address] [place] [address] Care Team Providers Care Lithographic Proofer Apprentice Name Role Phone Velvet López NP Primary Care Provider Encounters Date Type Department Care Team Description 01/01/2025 10:11 PM CDT - 01/01/2025 11:25 PM CDT Emergency [facility] Emergency Department [address] [place] [address] Discharge Disposition: Left without being seen 11/18/2024 10:48 PM CASE MANAGEMENT DIRECTOR - 11/19/2024 1:34 AM CASE MANAGEMENT DIRECTOR Emergency [facility] Emergency Department 1 [place] [address] Gareth Evans MD Hyperemesis gravidarum (Primary Dx); Less than 8 weeks gestation of Discharge Disposition: Discharge to home or self care from Last 3 Months Allergies Active Allergy Reactions Criticality Noted Date [...] Problems Comments Yes No known active problems Social History Tobacco Use Types Packs/Day Years [...] 01/01/2025 8:21 PM CDT Plan of Treatment Not on file Procedures Procedure Name Priority Date/Time Associated Diagnosis [...] WEEKS W ENDOVAGINAL ED 11/19/2024 12:46 AM CASE MANAGEMENT DIRECTOR ABO/RH STAT 11/18/2024 11:12 PM CASE MANAGEMENT DIRECTOR EGFR STAT 11/18/2024 9:07 PM CASE MANAGEMENT DIRECTOR DIFFERENTIAL AUTO STAT 11/18/2024 9:0 7 PM CASE MANAGEMENT DIRECTOR HCG, BLOOD, QUANTITATIVE STAT 11/18/2024 9:07 PM CASE MANAGEMENT DIRECTOR LIPASE STAT 11/18/2024 9:07 PM CASE MANAGEMENT DIRECTOR COMPREHENSIVE METABOLIC PANEL STAT 11/18/2024 9:07 PM CASE MANAGEMENT DIRECTOR CBC WITH AUTO DIFFERENTIAL STAT 11/18/2024 9:07 PM CASE MANAGEMENT DIRECTOR from Last 3 Months Results * XR [...] Gallo Sosa M.D. BB: SHAKIR Report ID: [id number] Reading Location: [id number] Procedure Note Gallo Sosa MD PhD - [...] Gallo Sosa M.D. BB: SHAKIR Report ID: [id number] Reading Location: [id number] Reagan Rosas MD IMG XR PROCEDURES Final Res ult * Troponin T high-sensitivity series (baseline, 2hr, 4hr, 6hr) (01/01/2025 8:30 PM CDT) Trop T hs <6 <=14 ng/L Comment: Interpretive Data For further hscTnT resources including the diagnostic algorithm and an aid in interpretation, copy and paste this link: https://nrl.testcatalog.org/show/hsTrop Current Interpretive Data last revised 2020. Blood 01/01/2025 8:3 0 PM CDT 01/01/2025 8:38 PM CDT Reagan Rosas MD LAB BLOOD ORDERABLES Edited Result - Final [facility] ([place]) 1 [facility] [place] [address] * eGFR (01/01/2025 8:30 PM CDT) Pathologist [facility] eGFR >90 >=60 mL/min/1. 73 m2 Comment: [...] ORDERABLES Final Result [facility] ([place]) 1 [facility] Department [place] [employer] [place] [address] * Differential, auto (01/01/2025 8:30 PM CDT) [...] MD LAB BLOOD ORDERABLES Final Result [facility] ([place]) 1 [facility] Department [place] [address] * (ABNORMAL) CBC with auto differential (01/01/2025 8:30 PM CDT) WBC 9.8 3.8 - 9.9 K/cumm Hgb 11.9 11.9 - 15.5 g/dL [facility] ([place]) Hct 34.0(L) 35.6 - 45.5 % [facility] ([place]) Plt 257 150 - 400 K/cumm [facility] ([place]) MPV 9.6 9.1 - 12.3 fL [facility] ([place]) RBC 3.69(L) 3.90 - 5.20 [...] ([place]) Blood Venous blood specimen / Unknown 01/01/2025 8:30 PM CDT 01/01/2025 8:38 PM CDT Reagan Rosas MD LAB BLOOD ORDERABLES Final Result [facility] 1 [facility] Department [place] [address] * (ABNORMAL) Comprehensive metabolic panel (01/01/2025 8:30 [...] ([place]) AST 13 10 - 45 Units/L [facility] ([place]) Blood 01/01/2025 8:30 PM CDT 01/01/2025 8:38 PM CDT us Reagan Rosas MD LAB BLOOD ORDERABLES Final Result [facility] ([place]) 1 [facility] Department of Laboratories [place], [place] [id number] * ECG 12 lead (01/01/2025 8:23 PM CDT) 01/01/2025 8:23 PM CDT Narrative [facility] - 01/02/2025 6:47 AM CDT Vent Rate: 81 bpm RR Interval: 740 msec WA Interval: 169 msec QRS Duration: 97 msec QT Interval: 369 msec QTC Interval: 406 msec P-R-T Dana: 25 - 39 - 26 degrees IMPRESSION: SINUS RHYTHM NORMAL ECG Electronically Signed By: Jimenez Toledo MD Reagan Rosas MD ECG ORDERABLES Final Resul t [facility] * US Ob Under 14 Weeks W Endovaginal (11/19/2024 12:46 AM CASE MANAGEMENT DIRECTOR) Anatomical Region Laterality Modality Abdomen N/A Ultrasound 11/19/2024 12:5 8 AM CASE MANAGEMENT DIRECTOR Narrative 11/19/2024 12:59 AM CASE MANAGEMENT DIRECTOR EXAM DESCRIPTION: US OB UNDER 14 WEEKS [...] Eusebio Duff M.D. AR: ERNIE Report ID: [id number] Reading Location: [id number] Procedure Note Eusebio Duff MD - 11/19/2024 [...] Eusebio Duff M.D. AR: ERNIE Report ID: [id number] Reading Location: [id number] Gareth Evans MD IMG OB US PROCEDURES Final R esult * ABO/Rh (11/18/2024 11:12 PM CASE MANAGEMENT DIRECTOR) ABO/Rh O Positive Blood 11/18/2024 11:1 2 PM CASE MANAGEMENT DIRECTOR 11/18/2024 11:15 PM CASE MANAGEMENT DIRECTOR Gareth Evans MD LAB BLOOD BANK TEST ORDERABL ES Final Result [facility] ([place]) 1 [facility] Department of Laboratories [place], [place] [id number] * eGFR (11/18/2024 9:07 PM CASE MANAGEMENT DIRECTOR) eGFR >90 >=60 mL/min/1. 73 m2 Comment: [...] last reviewed 2021. Blood 11/18/2024 9:07 PM CASE MANAGEMENT DIRECTOR 11/18/2024 9:12 PM CASE MANAGEMENT DIRECTOR us Gareth Evans MD LAB BLOOD ORDERABLES Final R esult [facility] ([place]) 1 [facility] Department [place] [address] * (ABNORMAL) Differential, auto (11/18/2024 9:07 PM CASE MANAGEMENT DIRECTOR) Neutrophil abs 7.9(H) 1.5 - 6.5 K/cumm Imm gran abs 0.1 0.0 - 0.1 K/cumm [facility] ([place]) Lymphocyte abs 3.6(H) 0.8 - 3.3 K/cumm [facility] ([place]) Monocyte abs 0.7 0.2 - 0.8 K/cumm [facility] ([place]) Eosinophil abs 0.2 0.0 - 0.5 K/cumm [facility] ([place]) Basophil abs 0.0 0.0 - 0.1 K/cumm [facility] ([place]) Neutrophil pct 62.9 % [facility] ([place]) Comment: Interpretive Data Percent cell count reference ranges are not reported, since discordance with absolute values may lead to misinterpretation of CBC data. Current Interpretive Data was last revised on 2018. Imm gran pct 0.5 % [facility] ([place]) Comment: Interpretive Data Percent cell count reference [...] revised on 2018. Blood 11/18/2024 9:07 PM CASE MANAGEMENT DIRECTOR 11/18/2024 9:12 PM CASE MANAGEMENT DIRECTOR us Gareth Evans MD LAB BLOOD ORDERABLES Final R esult [facility] ([place]) 1 [facility] Department [place] [address] * (ABNORMAL) CBC with auto differential (11/18/2024 9:07 PM CASE MANAGEMENT DIRECTOR) WBC 12.5(H) 3.8 - 9.9 K/cumm Hgb 12.2 11.9 - 15.5 g/dL [facility] ([place]) Hct 35.5(L) 35.6 - 45.5 % [facility] ([place]) Plt 277 150 - 400 K/cumm [facility] ([place]) MPV 9.3 9.1 - 12.3 fL [facility]ER [...] blood specimen / Unknown 11/18/2024 9:07 PM CASE MANAGEMENT DIRECTOR 11/18/2024 9:12 PM CASE MANAGEMENT DIRECTOR us Gareth Evans MD LAB BLOOD ORDERABLES Final R esult Performing Organization Address [facility] Co de Phone Number [facility] ([place]) [address] [place] [address] * (ABNORMAL) hCG, blood, quantitative (11/18/2024 9:07 PM CASE MANAGEMENT DIRECTOR) [facility] hCG, quant 7,920.0(H ) 0.0 - 5.0 IUnits/L Comment: Interpretive Data Male: < 5 IU/L Non- premenopausal Female: <5 IU/L The Ryan hCG Beta Quant assay procedure was used. Results from different manufacturers or methods may not be comparable. Serial testing should be performed using the same method. Interpretive Data was last revised on 2023 Blood 11/18/2024 9:07 PM CASE MANAGEMENT DIRECTOR 11/18/2024 9:12 PM CASE MANAGEMENT DIRECTOR Gareth Evans MD LAB BLOOD ORDERABLES Final R esult Performing Organization Address [facility] Co de Phone Number [facility] ([place]) [address] [place] [address] * Lipase (11/18/2024 9:07 PM CASE MANAGEMENT DIRECTOR) [facility] Lipase 21 10 - 99 Units/L Blood Venous blood specimen / Unknown 11/18/2024 9:07 PM CASE MANAGEMENT DIRECTOR 11/18/2024 9:12 PM CASE MANAGEMENT DIRECTOR Gareth Evans MD LAB BLOOD ORDERABLES Final R esult Performing Organization Address [facility] Co de Phone Number [facility] ([place]) [address] [place] [address] * (ABNORMAL) Comprehensive metabolic panel (11/18/2024 9:07 PM CASE MANAGEMENT DIRECTOR) [facility] Sodium 137 135 - 145 mmol/L Potassium, pl 3.6 3.3 - 4.9 mmol/L [facility] ([place]) Chloride 104 97 - 110 mmol/L [facility] ([place]) CO2 23 22 - 32 mmol/L [facility] ([place]) Anion gap 10 2 - 15 mmol/L [facility] ([place]) BUN 10 6 - 25 mg/dL [facility] ([place]) Creatinine 0.77 0.60 - 1.10 [...] 1.2 mg/dL [facility] ([place]) Protein, pl 6.2(L) 6.5 - 8.5 g/dL [facility] ([place]) Albumin 3.8 3.5 - 5.0 g/dL [facility] ([place]) Alk phos 71 40 - 130 Units/L [facility] ([place]) ALT 26 7 - 45 Units/L [facility] ([place]) AST 16 10 - 45 Units/L [facility] ([place]) Blood 11/18/2024 9:07 PM CASE MANAGEMENT DIRECTOR 11/18/2024 9:12 PM CASE MANAGEMENT DIRECTOR us Gareth Evans MD LAB BLOOD ORDERABLES Final R esult [facility] ([place]) 1 [facility] Department [place] [address] from Last 3 Months Insurance [facility] Care Teams Lithographic Proofer Apprentice Relationship Specialty Start Date End Date Velvet López NP PCP - General 08/11/19
[2025-01-16 20:11] LABS: BEDSIDEPREGUCG Positive (Negative)
[2025-01-16 20:17] VITALS: BP 133/76; PULSE 91; RESP 16; O2SAT 99
--- OUTSIDE RECORDS SUMMARY | 2025-01-16 21:02 | XMS_ITS | Clinical Summary ---
Author Organization [facility] Address [address] [place] [address] Care Team Providers Care Element Winding Machine Tender Name Role Phone Velvet López NP Primary Care Provider Allergies Active Allergy Reactions [...] CDT - 01/01/2025 11:25 PM CDT Emergency [facility] Emergency Department [address] [place] [address] Discharge Disposition: Left without being seen 11/18/2024 10:48 PM QUALITY ASSURANCE ANALYST - 11/19/2024 1:34 AM QUALITY ASSURANCE ANALYST Emergency [facility] Emergency Department [address] [place] [id number] Gareth Evans MD Hyperemesis gravidarum (Primary Dx); [...] WEEKS W ENDOVAGINAL ED 11/19/2024 12:46 AM QUALITY ASSURANCE ANALYST ABO/RH STAT 11/18/2024 11:12 PM QUALITY ASSURANCE ANALYST EGFR STAT 11/18/2024 9:07 PM QUALITY ASSURANCE ANALYST DIFFERENTIAL AUTO STAT 11/18/2024 9:0 7 PM QUALITY ASSURANCE ANALYST HCG, BLOOD, QUANTITATIVE STAT 11/18/2024 9:07 PM QUALITY ASSURANCE ANALYST LIPASE STAT 11/18/2024 9:07 PM QUALITY ASSURANCE ANALYST COMPREHENSIVE METABOLIC PANEL STAT 11/18/2024 9:07 PM QUALITY ASSURANCE ANALYST CBC WITH AUTO DIFFERENTIAL STAT 11/18/2024 9:07 PM QUALITY ASSURANCE ANALYST from Last 3 Months Results * XR [...] Gallo Sosa M.D. BB: SHAKIR Report ID: [id number] Reading Location: [id number] Procedure Note Gallo Sosa MD PhD - [...] Gallo Sosa M.D. BB: SHAKIR Report ID: [id number] Reading Location: [id number] Regaan Rosas MD IMG XR PROCEDURES Final Res [...] ORDERABLES Edited Result - Final [facility] [address] Department [place] [address] * eGFR (01/01/2025 8:30 PM [...] ORDERABLES Final Result [facility] ([place]) 1 [facility] Department [place] [address] * Differential, auto (01/01/2025 8:30 PM CDT) [...] ORDERABLES Final Result [facility] ([place]) 1 [facility] Department [place] [address] * (ABNORMAL) CBC with auto differential (01/01/2025 8:30 PM CDT) WBC 9.8 3.8 - 9.9 K/cumm Hgb 11.9 11.9 - 15.5 g/dL [facility] ([place]) Hct 34.0(L) 35.6 - 45.5 % [facility] ([place]) Plt 257 150 - 400 K/cumm [facility] ([place]) MPV 9.6 9.1 - 12.3 fL [facility] ([place]) RBC 3.69(L) 3.90 - [...] ORDERABLES Final Result [facility] ([place]) 1 [facility] Department [place] [address] * (ABNORMAL) Comprehensive metabolic panel (01/01/2025 8:30 [...] BLOOD ORDERABLES Final Result Performing Organization Address [facility] Co de Phone Number [facility] ([place]) 1 [facility] Department [place] [address] * ECG 12 lead (01/01/2025 8:23 PM CDT) 01/01/2025 8:23 PM CDT Narrative [facility] 01/02/2025 6:47 AM CDT Vent Rate: 81 bpm RR Interval: 740 msec [place] Interval: 169 msec QRS Duration: 97 msec QT Interval: 369 msec QTC Interval: 406 msec P-R-T Carman: 25 - 39 - 26 degrees IMPRESSION: SINUS RHYTHM NORMAL ECG Electronically Signed By: Jimenez Toledo MD Reagan Rosas MD ECG ORDERABLES Final Resul t Performing Organization Address [facility] de Phone Number [employer] [facility] * US Ob Under 14 Weeks W Endovaginal (11/19/2024 12:46 AM QUALITY ASSURANCE ANALYST) Anatomical Region Laterality Modality Abdomen N/A Ultrasound 11/19/2024 12:5 8 AM QUALITY ASSURANCE ANALYST Narrative 11/19/2024 12:59 AM QUALITY ASSURANCE ANALYST EXAM DESCRIPTION: US OB UNDER 14 WEEKS [...] Eusebio Duff M.D. AR: ERNIE Report ID: [id number] Reading Location: [id number] Procedure Note Eusebio Duff MD - 11/19/2024 [...] Eusebio Duff M.D. AR: ERNIE Report ID: [id number] Reading Location: [id number] us Gareth Evans MD IMG OB US PROCEDURES Final R esult * ABO/Rh (11/18/2024 11:12 PM QUALITY ASSURANCE ANALYST) ABO/Rh O Positive Blood 11/18/2024 11:1 2 PM QUALITY ASSURANCE ANALYST 11/18/2024 11:15 PM QUALITY ASSURANCE ANALYST us Gareth Evans MD LAB BLOOD BANK TEST ORDERABL ES Final Result [facility] [place] 1 [facility] Department [place] [address] * eGFR (11/18/2024 9:07 PM QUALITY ASSURANCE ANALYST) eGFR >90 >=60 mL/min/1. 73 m2 Comment: [...] last reviewed 2021. Blood 11/18/2024 9:07 PM QUALITY ASSURANCE ANALYST 11/18/2024 9:12 PM QUALITY ASSURANCE ANALYST us Gareth Evans MD LAB BLOOD ORDERABLES Final R esult [facility] ([place]) 1 [facility] Department [place] [address] * (ABNORMAL) Differential, auto (11/18/2024 9:07 PM QUALITY ASSURANCE ANALYST) Neutrophil abs 7.9(H) 1.5 - 6.5 K/cumm [...] revised on 2018. Blood 11/18/2024 9:07 PM QUALITY ASSURANCE ANALYST 11/18/2024 9:12 PM QUALITY ASSURANCE ANALYST us Gareth Evans MD LAB BLOOD ORDERABLES Final R esult [facility] ([place]) 1 [facility] Department [place] [address] * (ABNORMAL) CBC with auto differential (11/18/2024 9:07 PM QUALITY ASSURANCE ANALYST) WBC 12.5(H) 3.8 - 9.9 K/cumm Hgb 12.2 11.9 - 15.5 g/dL [facility] ([place]) Hct 35.5(L) 35.6 - 45.5 % [facility] ([place]) Plt 277 150 - 400 K/cumm [facility] ([place]) MPV 9.3 9.1 - 12.3 fL [facility]ER [...] blood specimen / Unknown 11/18/2024 9:07 PM QUALITY ASSURANCE ANALYST 11/18/2024 9:12 PM QUALITY ASSURANCE ANALYST Gareth Evans MD LAB BLOOD ORDERABLES Final R esult Performing Organization Address City/[facility]/ZIP Co de Phone Number [facility] ([place]) 1 [facility] [place] [address] * (ABNORMAL) hCG, blood, quantitative (11/18/2024 9:07 PM QUALITY ASSURANCE ANALYST) [facility] hCG, quant 7,920.0(H ) 0.0 - 5.0 IUnits/L Comment: Interpretive Data Male: < 5 IU/L Non- premenopausal Female: <5 IU/L The Ryan hCG Beta Quant assay procedure was used. Results from different manufacturers or methods may not be comparable. Serial testing should be performed using the same method. Interpretive Data was last revised on 2023 Blood 11/18/2024 9:07 PM QUALITY ASSURANCE ANALYST 11/18/2024 9:12 PM QUALITY ASSURANCE ANALYST Gareth Evans MD LAB BLOOD ORDERABLES Final R esult Performing Organization Address City/[facility]/ZIP Co de Phone Number [facility] ([place]) 1 [facility] Department of [employer] [place] [address] * Lipase (11/18/2024 9:07 PM QUALITY ASSURANCE ANALYST) Lipase 21 10 - 99 Units/L Blood Venous blood specimen / Unknown 11/18/2024 9:07 PM QUALITY ASSURANCE ANALYST 11/18/2024 9:12 PM QUALITY ASSURANCE ANALYST us Gareth Evans MD LAB BLOOD ORDERABLES Final R esult [facility] ([place]) 1 [facility] Department [place] [address] * (ABNORMAL) Comprehensive metabolic panel (11/18/2024 9:07 PM QUALITY ASSURANCE ANALYST) Sodium 137 135 - 145 mmol/L Potassium, pl 3.6 3.3 - 4.9 mmol/L [facility] ([place]) Chloride 104 97 - 110 mmol/L [facility] ([place]) CO2 23 22 - 32 mmol/L [facility] ([place]) Anion gap 10 2 - 15 mmol/L [facility] ([place]) BUN 10 6 - 25 mg/dL [facility] ([place]) Creatinine 0.77 0.60 - [...] [facility] ([place]) Blood 11/18/2024 9:07 PM QUALITY ASSURANCE ANALYST 11/18/2024 9:12 PM QUALITY ASSURANCE ANALYST Gareth Evans MD LAB BLOOD ORDERABLES Final R esult [facility] ([place]) 1 [facility] Department [place] [address] from Last 3 Months Insurance [facility] Care Teams Element Winding Machine Tender Relationship Specialty Start Date End Date Velvet López NP PCP - General 08/11/19
--- OUTSIDE RECORDS SUMMARY | 2025-01-16 21:02 | XMS_ITS | Referral Summary ---
Author Organization [facility] Address [address] [place] [address] Care Team Providers Care Scaleman Name Role Phone Velvet López NP Primary Care Provider [phone] Encounters Date Type Department Care Team Description 01/01/2025 10:11 PM CDT - 01/01/2025 11:25 PM CDT Emergency [facility] Emergency Department [address] [place] [address] Discharge Disposition: Left without being seen 11/18/2024 10:48 PM SALESPERSON HOUSEHOLD APPLIANCES - 11/19/2024 1:34 AM SALESPERSON HOUSEHOLD APPLIANCES Emergency [facility] Emergency Department [address] [place] [address] Gareth Evans MD Hyperemesis gravidarum (Primary Dx); [...] WEEKS W ENDOVAGINAL ED 11/19/2024 12:46 AM SALESPERSON HOUSEHOLD APPLIANCES ABO/RH STAT 11/18/2024 11:12 PM SALESPERSON HOUSEHOLD APPLIANCES EGFR STAT 11/18/2024 9:07 PM SALESPERSON HOUSEHOLD APPLIANCES DIFFERENTIAL AUTO STAT 11/18/2024 9:0 7 PM SALESPERSON HOUSEHOLD APPLIANCES HCG, BLOOD, QUANTITATIVE STAT 11/18/2024 9:07 PM SALESPERSON HOUSEHOLD APPLIANCES LIPASE STAT 11/18/2024 9:07 PM SALESPERSON HOUSEHOLD APPLIANCES COMPREHENSIVE METABOLIC PANEL STAT 11/18/2024 9:07 PM SALESPERSON HOUSEHOLD APPLIANCES CBC WITH AUTO DIFFERENTIAL STAT 11/18/2024 9:07 PM SALESPERSON HOUSEHOLD APPLIANCES from Last 3 Months Results * XR [...] Gallo Sosa M.D. BB: SHAKIR Report ID: [id number] Reading Location: [id number] Procedure Note Gallo Sosa MD PhD - [...] Gallo Sosa M.D. BB: SHAKIR Report ID: [id number] Reading Location: [id number] Reagan Rosas MD IMG XR PROCEDURES Final [...] ORDERABLES Edited Result - Final EFREN SORIAN[facility] ([place]) 1 [facility] [place] [address] * eGFR (01/01/2025 8:30 PM CDT) Pathologist [facility] eGFR >90 >=60 mL/min/1. 73 m2 [...] BLOOD ORDERABLES Final Result Performing Organization Address City/[facility]/ZIP Co de Phone Number EFREN SORIANO ([place]) 1 [facility] [place] [address] * Differential, auto (01/01/2025 8:30 PM CDT) Pathologist [facility] Neutrophil abs 6.2 1.5 - 6.5 K/cumm Imm gran abs 0.1 0.0 - 0.1 K/cumm [facility] ([place]) Lymphocyte abs 2.7 0.8 - 3.3 K/cumm [facility] ([place]) Monocyte abs 0.6 0.2 - 0.8 K/cumm [...] MD LAB BLOOD ORDERABLES Final Result EFREN CHRISTIE ([place]) 1 [facility] Department [place] [address] * (ABNORMAL) CBC with auto differential (01/01/2025 8:30 PM CDT) WBC 9.8 3.8 - 9.9 K/cumm Hgb 11.9 11.9 - 15.5 g/dL [facility] Hct 34.0(L) 35.6 - 45.5 [...] RDW SD 42.6 35.7 - 48.1 fL [facility] NRBC abs 0.00 0.00 - 0.01 K/cumm [facility] Blood Venous blood specimen / Unknown 01/01/2025 8:30 PM CDT 01/01/2025 8:38 PM CDT Reagan Rosas MD LAB BLOOD ORDERABLES Final Result [facility] 1 [facility] Department [place] [address] * (ABNORMAL) Comprehensive metabolic panel (01/01/2025 8:30 PM CDT) Pathologist [facility] Sodium 137 135 - 145 mmol/L Potassium, pl 3.8 3.3 - 4.9 mmol/L [facility] ([place]) Chloride 103 97 - 110 mmol/L [facility] ([place]) CO2 20(L) 22 - 32 mmol/L [facility] Anion gap 15 2 - [...] Result [facility] ([place]) 1 [facility] Department of Laboratories [place], [place] [id number] * ECG 12 lead (01/01/2025 8:23 PM CDT) 01/01/2025 8:23 PM CDT Narrative [facility] - 01/02/2025 6:47 AM CDT Vent Rate: 81 bpm RR Interval: 740 msec SD Interval: 169 msec QRS Duration: 97 msec QT Interval: 369 msec QTC Interval: 406 msec P-R-T [place]: 25 - 39 - 26 degrees IMPRESSION: SINUS RHYTHM NORMAL ECG Electronically Signed By: Jimenez Toledo MD Reagan Rosas MD ECG ORDERABLES Final Resul t [facility] * US Ob Under 14 Weeks W Endovaginal (11/19/2024 12:46 AM SALESPERSON HOUSEHOLD APPLIANCES) Anatomical Region Laterality Modality Abdomen N/A Ultrasound 11/19/2024 12:5 8 AM SALESPERSON HOUSEHOLD APPLIANCES Narrative 11/19/2024 12:59 AM SALESPERSON HOUSEHOLD APPLIANCES EXAM DESCRIPTION: US OB UNDER 14 WEEKS [...] Eusebio Duff M.D. AR: ERNIE Report ID: [id number] Reading Location: [id number] Procedure Note Eusebio Duff MD - 11/19/2024 [...] Eusebio Duff M.D. AR: ERNIE Report ID: [id number] Reading Location: [id number] us Gareth Evans MD IMG OB US PROCEDURES Final R esult * ABO/Rh (11/18/2024 11:12 PM SALESPERSON HOUSEHOLD APPLIANCES) ABO/Rh O Positive Blood 11/18/2024 11:1 2 PM SALESPERSON HOUSEHOLD APPLIANCES 11/18/2024 11:15 PM SALESPERSON HOUSEHOLD APPLIANCES us Gareth Evans MD LAB BLOOD BANK TEST ORDERABL ES Final Result [facility] ([place]) 1 [facility] Department [place] [address] * eGFR (11/18/2024 9:07 PM SALESPERSON HOUSEHOLD APPLIANCES) eGFR >90 >=60 mL/min/1. 73 m2 Comment: [...] last reviewed 2021. Blood 11/18/2024 9:07 PM SALESPERSON HOUSEHOLD APPLIANCES 11/18/2024 9:12 PM SALESPERSON HOUSEHOLD APPLIANCES us Gareth Evans MD LAB BLOOD ORDERABLES Final R esult EFREN SORIANO ([place]) 1 [facility] Department [place] [address] * (ABNORMAL) Differential, auto (11/18/2024 9:07 PM SALESPERSON HOUSEHOLD APPLIANCES) Neutrophil abs 7.9(H) 1.5 - 6.5 K/cumm Imm gran abs 0.1 0.0 - 0.1 K/cumm [facility] ([place]) Lymphocyte abs 3.6(H) 0.8 - 3.3 K/cumm [facility] ([place]) Monocyte abs 0.7 0.2 - 0.8 K/cumm [facility] ([place]) Eosinophil abs 0.2 0.0 - 0.5 K/cumm [facility] ([place]) Basophil abs 0.0 0.0 - 0.1 K/cumm [...] revised on 2018. Blood 11/18/2024 9:07 PM SALESPERSON HOUSEHOLD APPLIANCES 11/18/2024 9:12 PM SALESPERSON HOUSEHOLD APPLIANCES Gareth Evans MD LAB BLOOD ORDERABLES Final R esult [facility] ([place]) 1 [facility] Department [place] [address] * (ABNORMAL) CBC with auto differential (11/18/2024 9:07 PM SALESPERSON HOUSEHOLD APPLIANCES) WBC 12.5(H) 3.8 - 9.9 K/cumm Hgb [...] blood specimen / Unknown 11/18/2024 9:07 PM SALESPERSON HOUSEHOLD APPLIANCES 11/18/2024 9:12 PM SALESPERSON HOUSEHOLD APPLIANCES Gareth Evans MD LAB BLOOD ORDERABLES Final R esult Performing Organization Address [facility] Co de Phone Number EFREN SORIANO ([place]) 1 [place] [address] * (ABNORMAL) hCG, blood, quantitative (11/18/2024 9:07 PM SALESPERSON HOUSEHOLD APPLIANCES) [facility] hCG, quant 7,920.0(H ) 0.0 - 5.0 IUnits/L Comment: Interpretive Data Male: < 5 IU/L Non- premenopausal Female: <5 IU/L The Ryan hCG Beta Quant assay procedure was used. Results from different manufacturers or methods may not be comparable. Serial testing should be performed using the same method. Interpretive Data was last revised on 2023 Blood 11/18/2024 9:07 PM SALESPERSON HOUSEHOLD APPLIANCES 11/18/2024 9:12 PM SALESPERSON HOUSEHOLD APPLIANCES Gareth Evans MD LAB BLOOD ORDERABLES Final R esult Performing Organization Address [facility] Co de Phone Number EFREN SORIANO ([place]) 1 [place] [address] * Lipase (11/18/2024 9:07 PM SALESPERSON HOUSEHOLD APPLIANCES) [facility] Lipase 21 10 - 99 Units/L Blood Venous blood specimen / Unknown 11/18/2024 9:07 PM SALESPERSON HOUSEHOLD APPLIANCES 11/18/2024 9:12 PM SALESPERSON HOUSEHOLD APPLIANCES Gareth Evans MD LAB BLOOD ORDERABLES Final R esult Performing Organization Address [facility] Co de Phone Number EFREN SORIANO ([place]) [address] [place] [address] * (ABNORMAL) Comprehensive metabolic panel (11/18/2024 9:07 PM SALESPERSON HOUSEHOLD APPLIANCES) [facility] Sodium 137 135 - 145 mmol/L Potassium, pl 3.6 3.3 - 4.9 mmol/L [facility] ([place]) Chloride 104 97 - 110 mmol/L [facility] [...] [facility] ([place]) Blood 11/18/2024 9:07 PM SALESPERSON HOUSEHOLD APPLIANCES 11/18/2024 9:12 PM SALESPERSON HOUSEHOLD APPLIANCES us Gareth Evans MD LAB BLOOD ORDERABLES Final R esult [facility] ([place]) 1 [facility] Department [place] [address] from Last 3 [place] [id number] [facility] Care Teams Scaleman Relationship Specialty Start Date End Date Velvet López NP PCP - General 08/11/19
--- OUTSIDE RECORDS SUMMARY | 2025-01-16 21:02 | XMS_ITS | Clinical Summary ---
Author Organization [facility] Address [address] [place] [address] Phone Care Team Providers Care Metallurgical Engineering Technician Name Role Phone Reagan Farnsworth DO Primary Care Provider Allergies Active Allergy Reactions Criticality Noted Date Comments Sulfamethoxazole-Trimethoprim Swelling 2023 Sulfa Antibiotics Hives 07/26/2024 Medications No known medications Encounters Date Type Department Care Team Description 11/14/2024 7:57 PM GERONTOLOGY AIDE - 11/14/2024 9:43 PM GERONTOLOGY AIDE Emergency [facility] Emergency 1 [place] [address] Mali Gupta, TUSHAR, GOPHERMAN Muscle spasms of both lower extremities Discharge [...] Comments Blood Pressure 121/66 11/14/2024 8:40 PM GERONTOLOGY AIDE Pulse 98 11/14/2024 8:40 PM GERONTOLOGY AIDE Temperature 36.8 C (98.2 F) 11/14/2024 8:40 PM GERONTOLOGY AIDE Respiratory Rate 14 11/14/2024 8:40 PM GERONTOLOGY AIDE Oxygen Saturation 100% 11/14/2024 8:40 PM GERONTOLOGY AIDE Inhaled Oxygen Concentration - - Weight 137.4 kg (303 lb) 11/14/2024 7:51 PM GERONTOLOGY AIDE Height 165.1 cm (5' 5 ) 11/14/2024 7:51 PM GERONTOLOGY AIDE Body Mass Index 50.42 11/14/2024 7:51 PM GERONTOLOGY AIDE Plan of Treatment Health Maintenance Due Date [...] WITH AUTO DIFFERENTIAL STAT 11/14/2024 7:59 PM GERONTOLOGY AIDE HCG BETA SUBUNIT SERUM QUANT STAT 11/14/2024 7:59 PM GERONTOLOGY AIDE D-DIMER STAT 11/14/2024 7:59 PM GERONTOLOGY AIDE CMP (COMPREHENSIVE METABOLIC PANEL) STAT 11/14/2024 7:59 PM GERONTOLOGY AIDE COMPLETE BLOOD COUNT (CBC) WITH DIFF STAT 11/14/2024 7:59 PM GERONTOLOGY AIDE from Last 3 Months Results * (ABNORMAL) CBC with Auto Differential (11/14/2024 7:59 PM GERONTOLOGY AIDE) WBC 12.74(H) 4.00 - 12.00 10(3)/mcL 11/14/2024 8:13 PM GERONTOLOGY AIDE [facility] RBC 4.32 3.80 - 5.30 10(6)/mcL 11/14/2024 8:13 PM [facility] HEMOGLOBIN (HGB) 13.7 12.0 - 15.8 g/dL 11/14/2024 8:13 PM [facility] HEMATOCRIT (HCT) 38.9 36.0 - 47.0 % 11/14/2024 8:13 PM [facility] MCV 90.0 82.0 - 96.0 fL 11/14/2024 8:13 PM [facility] MCH 31.7 26.0 - 34.0 pg 11/14/2024 8:13 PM [facility] MCHC 35.2 31.0 - 36.0 g/dL 11/14/2024 8:13 PM [facility] PLATELET COUNT 337 140 - 440 10(3)/[facility] 11/14/2024 8:13 PM [facility] RDW 12.2 11.8 - 15.5 % 11/14/2024 8:13 PM [facility] MPV 9.1(L) 9.7 - 12.4 fL 11/14/2024 8:13 PM [facility] NEUTROPHILS 60.9 47.0 - 73.0 % 11/14/2024 8:13 PM [facility] LYMPHOCYTES 31.6 18.0 - 42.0 % 11/14/2024 8:13 PM [facility] MONOCYTES 6.1 4.0 - 12.0 % 11/14/2024 8:13 PM [facility] EOSINOPHILS 1.1 0.0 - 5.0 % 11/14/2024 8:13 PM [facility] BASOPHILS 0.3 0.0 - 1.0 % 11/14/2024 8:13 PM [facility] ABSOLUTE NEUTROPHILS 7.76(H) 1.60 - 7.70 10(3)/mcL 11/14/2024 8:13 PM [facility] ABSOLUTE LYMPHOCYTES 4.02(H) 1.30 - 3.20 10(3)/[facility] 11/14/2024 8:13 PM GERONTOLOGY AIDE [facility] ABSOLUTE MONOCYTES 0.78 0.20 - 1.00 10(3)/mcL 11/14/2024 8:13 PM GERONTOLOGY AIDE [facility] ABSOLUTE EOSINOPHIL 0.14 0.00 - 0.40 10(3)/mcL 11/14/2024 8:13 PM GERONTOLOGY AIDE [facility] ABSOLUTE BASOPHILS 0.04 0.00 - 0.10 10(3)/[facility] 11/14/2024 8:13 PM GERONTOLOGY AIDE [facility] NRBC PER 100 WBC 0 11/14/19 8:13 PM GERONTOLOGY AIDE [facility] Blood Venipuncture / Unknown 11/14/2024 7:59 PM GERONTOLOGY AIDE 11/14/2024 8:10 PM GERONTOLOGY AIDE us Neri Driscoll MD HEMATOLOGY ORDERABLES Fin al Result [facility] [address] [place] [address] * (ABNORMAL) HCG Beta Subunit Serum Quant (11/14/2024 7:59 PM GERONTOLOGY AIDE) HCG BETA SUBUNIT, QUANT 2,198.14(H ) 0.00 - 5.00 mIU/mL 11/14/2024 9:24 PM GERONTOLOGY AIDE [facility] Blood Venipuncture / Unknown 11/14/2024 7:59 PM GERONTOLOGY AIDE 11/14/2024 8:10 PM GERONTOLOGY AIDE Narrative [facility] - 11/14/2024 9:24 PM GERONTOLOGY AIDE HCG levels should be interpreted with consideration [...] a urine hCG. us Mali Gupta APRN, GOPHERMAN CHEMISTRY ORDERABLES Final Result Performing Organization Address [facility] Co de Phone Number [facility] [address] [place] [address] * D-DIMER [id number] (11/14/2024 7:59 PM GERONTOLOGY AIDE) [facility] D DIMER 0.42 <0.50 mcg/mL FEU 11/14/2024 8:54 PM GERONTOLOGY AIDE [facility] Blood Venipuncture / Unknown 11/14/2024 7:59 PM GERONTOLOGY AIDE 11/14/2024 8:10 PM GERONTOLOGY AIDE Narrative [facility] - 11/14/2024 8:54 PM GERONTOLOGY AIDE The FDA has approved this method to exclude the diagnosis of DVT and/or PE at the cutoff value of <0.50 mcg/mL FEU. Neri Driscoll MD HEMATOLOGY ORDERABLES Fin al Result Performing Organization Address [facility] Co de Phone Number [facility] [address] [place] [address] * (ABNORMAL) Comprehensive Metabolic Panel (Cmp) [id number] (11/14/2024 7:59 PM GERONTOLOGY AIDE) [facility] SODIUM 138 136 - 145 mmol/L 11/14/2024 8:36 PM GERONTOLOGY AIDE [facility] POTASSIUM 3.5 3.5 - 5.1 mmol/L 11/14/2024 8:36 PM GERONTOLOGY AIDE [facility] CHLORIDE 107 98 - 107 mmol/L 11/14/2024 8:36 PM GERONTOLOGY AIDE [facility] CO2, VENOUS 22 22 - 30 mmol/L 11/14/2024 8:36 PM [facility] ANION GAP 12.5 <18.0 mmol/L 11/14/2024 8:36 PM [facility] GLUCOSE 103(H) 70 - 99 mg/dL 11/14/2024 8:36 PM [facility] BUN 9 5 - 18 mg/dL 11/14/2024 8:36 PM [facility] CREATININE, BLOOD 0.87 0.60 - 1.00 mg/dL 11/14/2024 8:36 PM [facility] BUN/CREATININE RATIO 10(L) 12 - 20 ratio 11/14/2024 8:36 PM [facility] TOTAL PROTEIN 7.2 6.0 - 8.0 g/dL 11/14/2024 8:36 PM [facility] ALBUMIN 4.0 3.5 - 5.0 g/dL 11/14/2024 8:36 PM [facility] A/G RATIO 1.3 1.0 - 2.2 11/14/2024 8:36 PM [facility] CALCIUM 8.9 8.7 - 10.5 mg/dL 11/14/2024 8:36 PM [facility] T BILI 0.3 0.2 - 1.2 mg/dL 11/14/2024 8:36 PM [facility] SGOT (AST) 20 6 - 42 U/L 11/14/2024 8:36 PM [facility] SGPT (ALT) 27 6 - 55 U/L 11/14/2024 8:36 PM [facility] ALKALINE PHOSPHATASE 63 40 - 150 U/L 11/14/2024 8:36 PM [facility] GFR, ESTIMATED >60 >=60 11/14/2024 8:36 PM [facility] Comment: Creatinine Clearance is the preferred criteria for selecting drug dose adjustments in renally impaired patients. The GFR is provided as additional pertinent clinical information. GFR is reported in mL/min/1.73 sq m. Calculation based on the Chronic Kidney Disease Epidemiology Collaboration (CKD- EPI) equation refit without adjustment for race. GFR, EST. >60 >=60 025 8:36 PM GERONTOLOGY AIDE [facility] GFR, EST. NONAFRICAN >60 >=60 11/14/2024 8:36 PM GERONTOLOGY AIDE [facility] Blood Venipuncture / Unknown 11/14/2024 7:59 PM GERONTOLOGY AIDE 11/14/2024 8:10 PM GERONTOLOGY AIDE us Neri Driscoll MD CHEMISTRY ORDERABLES Audrey l Result [facility] [address] [place] [address] from Last 3 Months Insurance MEDICAID [facility] Care Teams Metallurgical Engineering Technician Relationship Specialty Start Date End Date Reagan Farnsworth DO [address] [place] [address] PCP - General Internal Medicine 07/26/24
[2025-01-16 21:41] LABS: Basophils Percent Auto 0.2 % (0.2-1.2); Eosinophils Absolute Auto 0.2 K/mm3 (0-0.3); Eosinophils Percent Auto 1.8 % (0-4.4); Hematocrit 35.4 % (37.0-47.0); Hemoglobin 12.3 g/dL (12.0-15.0); Immature Granulocyte Absolute 0.06 K/mm3 (0.00-0.031); Immature Granulocyte Percent A 0.7 % (0-0.5); Lymphocytes Absolute Auto 2.42 K/mm3 (0.9-3.2); Lymphocytes Percent Auto 26.9 % (18.3-44.2); Mean Corpuscular HGB Conc 34.7 g/dl (32-36); Mean Corpuscular Hemoglobin 32.1 pg (26-34); Mean Corpuscular Volume 92.4 fl (80-100); Mean Platelet Volume 9.4 fl (7.4-10.4); Monocytes Absolute Auto 0.6 K/mm3 (0.1-0.6); Monocytes Percent Auto 6.7 % (2.6-8.5); Neutrophils Absolute Auto 5.8 K/mm3 (1.3-6.7); Neutrophils Percent Auto 63.7 % (45.5-73.1); Platelet Count Result 232 k/mm3 (150-375); Red Blood Count 3.83 M/mm3 (4.2-5.4); Red Cell Distribution Width 12.8 % (11.5-14.5)
[2025-01-16 21:51] LABS: Alanine Aminotransferase 28 U/L (6-35); Albumin Level 3.4 g/dL (3.5-5.1); Alkaline Phosphatase 56 U/L (38-126); Anion Gap 7 mmol/L (4-12); Aspartate Amino Transferase 18 U/L (14-36); Bilirubin,Total 0.1 mg/dL (0.2-1.3); Blood Urea Nitrogen 9 mg/dL (7-17); Calcium 8.8 mg/dL (8.4-10.2); Carbon Dioxide 22 mmol/L (22-30); Chloride 105 mmol/L (98-107); Estimated Glomerular Filt Rate > 60; Glucose 113 mg/dL (65-110); Potassium 3.8 mmol/L (3.4-5.0); Sodium 134 mmol/L (137-145)
[2025-01-16] MEDS: ACETAMINOPHEN 500 MG TABLET 1000 MG PO (21:53)
--- NOTE | 2025-01-16 21:53 | ED_ITS ---
HPI - General Chief complaint: OB/Uterine Contractions Stated complaint: 14 weeks , no movement, cramping Time Seen by Provider: 01/16/25 20:52 Source: patient Mode of arrival: ambulatory Limitations: no limitations History of Present Illness HPI Narrative: This is a 24 year old female that presents to the ER for pelvic cramping. Reports she is about 14 weeks . Has not felt baby move in a couple of days. Starting to have some cramping and light spotting today which prompted her to be seen. Denies fever, dysuria, hematuria. Related Data Home Medications ?Medication ?Instructions ?Recorded ?Confirmed ?Last Taken ?Type drospirenone 3 mg-estetrol 14.2 mg See Rx Instructions PO .COMPLEX 04/06/24 07/29/24 Unknown History (28) tablet (Nextstellis) Allergies Allergy/AdvReac Type Severity Reaction Status Date / Time venom-wasp Allergy Intermediate Anaphylaxis Verified 01/16/25 19:04 Sulfa (Sulfonamide Allergy Mild Rash Verified 01/16/25 19:04 Antibiotics) sulfamethoxazole (From Allergy Mild Rash Verified 01/16/25 19:04 Septra) trimethoprim (From Septra) Allergy Mild Rash Verified 01/16/25 19:04 Review of Systems 2 Review of Systems: CONSTITUTIONAL: Denies fever GASTROINTESTINAL: Reports pelvic cramping GENITOURINARY: Denies dysuria or hematuria. All systems reviewed & are unremarkable except as noted in HPI and below PMFSH Past Medical History Medical History Asthma Binge eating disorder Blurred vision COVID-19 Establishing care with new doctor, encounter for GERD (gastroesophageal reflux disease) Migraine headache Morbid obesity due to excess calories Nausea and vomiting Pharyngitis Postconcussive syndrome Surgical History Surgical History History of placement of ear tubes S/P tonsillectomy and adenoidectomy Family History Family History Father Barretts syndrome Mother Asthma Diabetes mellitus Depression Sibling Hypertension Grandparent Diabetes mellitus Other Asthma Social History Social History Smoking status: Current every day smoker Tobacco type: e-cigarettes/vaping Additional smoking assessment comments: Has been using Vape devices for 3 Years Alcohol intake: current Drinks per week: 1 Alcohol use details: Social Drinker Substance use: current Substance use type: marijuana Other substance usage details: twice a week Do You Feel Safe in your Home?: Yes Lack of Transportation: YES Lack of Food: Sometimes True Current Housing: I Have Housing Concerned About Future Housing: No Difficulty Paying Gas/Electric Bills: YES Difficulty Paying for Meds: No Currently Unemployed: Decline to Answer Education: High School Diploma/GED Difficulty w/ Childcare or Family Care: No Living arrangements: with family Occupation/Education: occupation Additional occupation/education comments: [employer] Gender identity (if verbalized by the patient): Female Spiritual care concerns: No Exam 2 Narrative: GENERAL: Well-appearing, well-nourished, and in no acute distress. HEAD: Normocephalic, atraumatic. EYES: EOMI. CHEST: Clear to auscultation. No respiratory distress. No wheezes rales or rhonchi HEART: Regular rate and rhythm. No murmur heard. Normal peripheral pulses. ABDOMEN: Soft, nontender, nondistended, normal active bowel sounds. EXTREMITIES: Normal range of motion. No edema. SKIN: Warm, dry, no rash. NEURO: No focal deficits. Alert and oriented x3. PSYCH: Normal mood and affect Course Course Emergency Course: Patient and family updated on workup and agree with plan of care Vital Signs Vital signs: Vital Signs Temperature 97.4 F L 01/16/25 19:04 Pulse Rate 94 01/16/25 19:04 Respiratory Rate 16 01/16/25 19:04 Blood Pressure 135/94 H 01/16/25 19:04 Pulse Oximetry 98 01/16/25 19:04 Oxygen Delivery Room Air 01/16/25 19:04 Temperature 97.4 F L 01/16/25 19:04 Pulse Rate 91 01/16/25 20:17 Respiratory Rate 16 01/16/25 20:17 Blood Pressure 133/76 01/16/25 20:17 Pulse Oximetry 99 01/16/25 20:17 Oxygen Delivery Room Air 01/16/25 19:04 MDM - OB/Uterine Contractions MDM Narrative Medical decision making narrative: Patient presents to the ER for bleeding in . Reports light spotting and pelvic cramping. Vitals are stable. CBC and metabolic panel without concerning findings. Patient is O-positive. Feet ultrasound shows single intrauterine gestation with age of 13 weeks and 5 days. Positive cardiac activity. Patient and family updated on workup and agree with plan of care. She has follow-up with her OB. She is given warnings to return to the ER Differential Diagnosis Differential diagnosis: Likely other (threatened miscarriage, miscarriage) Lab Data Attestation: I reviewed the patient's lab results. 01/16/25 21:34 01/16/25 21:34 Labs: Lab Results 01/16/25 01/16/25 Range/Units 20:09 21:34 WBC 9.0 (4.5-10.0) K/mm3 RBC 3.83 L (4.2-5.4) M/mm3 Hgb 12.3 (12.0-15.0) g/dL Hct 35.4 L (37.0-47.0) % MCV 92.4 (80-100) fl MCH 32.1 (26-34) pg MCHC 34.7 (32-36) g/dl RDW 12.8 (11.5-14.5) % Plt Count 232 (150-375) k/mm3 MPV 9.4 (7.4-10.4) fl Immature Gran % (Auto) 0.7 H (0-0.5) % Neut % (Auto) 63.7 (45.5-73.1) % Lymph % (Auto) 26.9 (18.3-44.2) % Canadian % (Auto) 6.7 (2.6-8.5) % Eos % (Auto) 1.8 (0-4.4) % Baso % (Auto) 0.2 (0.2-1.2) % Lymph # (Auto) 2.42 (0.9-3.2) K/mm3 Canadian # (Auto) 0.6 (0.1-0.6) K/mm3 Eos # (Auto) 0.2 (0-0.3) K/mm3 Baso # (Auto) 0.0 (0.0-0.1) K/mm3 Abs Immat Gran (auto) 0.06 H (0.00-0.031) K/mm3 Absolute Neuts (auto) 5.8 (1.3-6.7) K/mm3 Absolute Nucleated RBC 0.000 (0.0-0.012) K/mm3 Nucleated RBC % 0.0 (0.0-0.2) % PT 13.1 (11.1-14.7) Seconds INR 1.0 APTT 30.4 (22.3-36.8) Seconds Sodium 134 L (137-145) mmol/L Potassium 3.8 (3.4-5.0) mmol/L Chloride 105 (98-107) mmol/L Carbon Dioxide 22 (22-30) mmol/L Anion Gap 7 (4-12) mmol/L BUN 9 (7-17) mg/dL Creatinine 0.71 (0.7-1.0) mg/dL Estim Creat Clear Calc Not Reportable Estimated GFR > 60 (59 - ) Glucose 113 H (65-110) mg/dL Calcium 8.8 (8.4-10.2) mg/dL Total Bilirubin 0.1 L (0.2-1.3) mg/dL AST 18 (14-36) U/L ALT 28 (6-35) U/L Alkaline Phosphatase 56 (38-126) U/L Total Protein 6.0 L (6.3-8.2) g/dL Albumin 3.4 L (3.5-5.1) g/dL Beta HCG, Quant 30631.00 mIU/ML POC Urine HCG, Qual Positive (Negative) Blood Type O Positive Antibody Screen Negative Screen TNP Baby's Blood Type Not Reportable Baby's IDRIS Not Reportable Doses of RhIg Required 0 Imaging Data Radiologist's impression: ITS Impressions Ultrasound 01/16/25 20:57 IMPRESSION: Single intrauterine gestation with an approximate gestational age of 13 weeks and 5 days, with cardiac activity identified. Critical Care Time Critical Care Time Critical Care Time: No Discharge Plan Discharge Clinical Impression: Second trimester bleeding Patient Disposition: Home, Self-Care Condition: Stable Instructions: Threatened Miscarriage (ED), Abdominal Pain in (ED) Additional Instructions: Return to the ER if you experience fever, chest pain, shortness of breath, abdominal pain with nausea and vomiting, you are unable to keep down liquids or solids, you are soaking through a pad/hour, or any other symptoms that are concerning to you Small, frequent meals. Craig diet. Remain well hydrated. Tylenol as needed for pain Follow up with your OB Patient Language: Armenian Prescriptions: No Action albuterol sulfate 90 mcg/actuation HFA aerosol inhaler 2 puff inhalation QID PRN (Reason: shortness of breath or wheezing) Qty: 6.7 0RF Nextstellis 3 mg- 14.2 mg (28) tablet See Rx Instructions PO .COMPLEX Rx Instructions: take 1-PINK tablet once daily for 24 days/days 1-24 of cycle; take 1-WHITE tablet once daily for 4 days/days 25-28 of cycle. PO famotidine 20 mg tablet See Rx Instructions .ROUTE .COMPLEX Qty: 60 2RF Dose Instruction: TAKE 1 TABLET BY MOUTH TWICE A DAY Rx Instructions: TAKE 1 TABLET BY MOUTH TWICE A DAY epinephrine 0.3 mg/0.3 mL auto-injector 0.3 mg IM ONCE Qty: 2 0RF Rx Instructions: as a single dose; may repeat once Follow-up/Referrals: Reagan Farnsworth, [Primary Care Provider] -
[2025-01-16 21:55] LABS: Prothrombin Time 13.1 Seconds (11.1-14.7)
[2025-01-16 21:56] LABS: Partial Thromboplastin Time 30.4 Seconds (22.3-36.8)
[2025-01-16 23:45] VITALS: BP 124/86; PULSE 78; RESP 15; O2SAT 100
== END 2025-01-16 23:45 | disposition home or self-care (01) ==
PROVIDERS: Emergency Provider Physician Assistant; PCP Internal Medicine
DX: O46.92 Antepartum hemorrhage, unspecified, second trimester (principal); O99.512 Diseases of the respiratory system complicating pregnancy, second trimester; J45.909 Unspecified asthma, uncomplicated; O99.612 Diseases of the digestive system complicating pregnancy, second trimester; K21.9 Gastro-esophageal reflux disease without esophagitis; E66.01 Morbid (severe) obesity due to excess calories; O99.212 Obesity complicating pregnancy, second trimester; O99.332 Smoking (tobacco) complicating pregnancy, second trimester; F17.290 Nicotine dependence, other tobacco product, uncomplicated; Z86.16 Personal history of COVID-19; Z3A.14 14 weeks gestation of pregnancy
CPT/HCPCS: 36415; 76801; 80053; 81025; 84702; 85025; 85461; 85610; 85730; 86850; 86900; 86901; 99284; A9270

== ENCOUNTER 2025-02-05 21:57 | Emergency (ER) | payer OTHER, SELFPAY ==
--- NOTE | ~2025-02-05 | CT_ITS ---
CT Facial Bones Clinical Indication: Left jaw pain, injury Technique: Contiguous axial scans were obtained through the facial bones followed by coronal and sagi ttal reconstructions. Dose reduction technique was used on this scan by utilizing automated exposure control and iterative reconstruction technique. The dose-length product (DLP) was 815.52 mGy-cm. Findings: No fractures are identified. Mild bilateral maxillary sinus disease present. The remaining visualized paranasal sinuses are clear. Intraorbital soft tissues appear normal. Impression: No fracture identified. Bilateral maxillary sinus disease. Reviewed, dictated and finalized at location . Impression: No fracture identified. Bilateral maxillary sinus disease.
[2025-02-05 21:59] VITALS: BP 131/83; PULSE 107; RESP 18; TEMP 37.1; O2SAT 100
--- OUTSIDE RECORDS SUMMARY | 2025-02-05 22:00 | XMS_ITS | Clinical Summary ---
Author Organization [facility] Address [address] [place] [address] Phone Care Team Providers Care Metallurgical Analyst Name Role Phone Reagan Farnsworth DO Primary Care Provider Allergies Active Allergy Reactions Criticality Noted Date Comments Sulfamethoxazole-Trimethoprim Swelling 2023 Sulfa Antibiotics Hives 07/26/2024 Medications No known medications Encounters Date Type Department Care Team Description 11/14/2024 7:57 PM MANAGER NURSING HOME - 11/14/2024 9:43 PM MANAGER NURSING HOME Emergency [facility] [address] [place] [address] Mali Gupta, TUSHAR, COSMETIC MAKER Muscle spasms of both lower extremities Discharge [...] Comments Blood Pressure 121/66 11/14/2024 8:40 PM MANAGER NURSING HOME Pulse 98 11/14/2024 8:40 PM MANAGER NURSING HOME Temperature 36.8 C (98.2 F) 11/14/2024 8:40 PM MANAGER NURSING HOME Respiratory Rate 14 11/14/2024 8:40 PM MANAGER NURSING HOME Oxygen Saturation 100% 11/14/2024 8:40 PM MANAGER NURSING HOME Inhaled Oxygen Concentration - - Weight 137.4 kg (303 lb) 11/14/2024 7:51 PM MANAGER NURSING HOME Height 165.1 cm (5' 5 ) 11/14/2024 7:51 PM MANAGER NURSING HOME Body Mass Index 50.42 11/14/2024 7:51 PM MANAGER NURSING HOME Plan of Treatment Health Maintenance Due Date [...] WITH AUTO DIFFERENTIAL STAT 11/14/2024 7:59 PM MANAGER NURSING HOME HCG BETA SUBUNIT SERUM QUANT STAT 11/14/2024 7:59 PM MANAGER NURSING HOME D-DIMER STAT 11/14/2024 7:59 PM MANAGER NURSING HOME CMP (COMPREHENSIVE METABOLIC PANEL) STAT 11/14/2024 7:59 PM MANAGER NURSING HOME COMPLETE BLOOD COUNT (CBC) WITH DIFF STAT 11/14/2024 7:59 PM MANAGER NURSING HOME from Last 3 Months Results * (ABNORMAL) CBC with Auto Differential (11/14/2024 7:59 PM MANAGER NURSING HOME) WBC 12.74(H) 4.00 - 12.00 10(3)/mcL 11/14/2024 8:13 PM MANAGER NURSING HOME [facility] RBC 4.32 3.80 - 5.30 10(6)/mcL 11/14/2024 8:13 PM [facility] HEMOGLOBIN (HGB) 13.7 12.0 - 15.8 g/dL 11/14/2024 8:13 PM [facility] HEMATOCRIT (HCT) 38.9 36.0 - 47.0 % 11/14/2024 8:13 PM [facility] MCV 90.0 82.0 - 96.0 fL 11/14/2024 8:13 PM [facility] MCH 31.7 26.0 - 34.0 pg 11/14/2024 8:13 PM [facility] MCHC 35.2 31.0 - 36.0 g/dL 11/14/2024 8:13 PM [facility] PLATELET COUNT 337 140 - 440 10(3)/[facility] 11/14/2024 8:13 PM [facility] RDW 12.2 11.8 - 15.5 % 11/14/2024 8:13 PM [facility] MPV 9.1(L) 9.7 - 12.4 fL 11/14/2024 8:13 PM [facility] NEUTROPHILS 60.9 47.0 - 73.0 % 11/14/2024 8:13 PM [facility] LYMPHOCYTES 31.6 18.0 - 42.0 % 11/14/2024 8:13 PM [facility] MONOCYTES 6.1 4.0 - 12.0 % 11/14/2024 8:13 PM [facility] EOSINOPHILS 1.1 0.0 - 5.0 % 11/14/2024 8:13 PM [facility] BASOPHILS 0.3 0.0 - 1.0 % 11/14/2024 8:13 PM [facility] ABSOLUTE NEUTROPHILS 7.76(H) 1.60 - 7.70 10(3)/mcL 11/14/2024 8:13 PM [facility] ABSOLUTE LYMPHOCYTES 4.02(H) 1.30 - 3.20 10(3)/[facility] 11/14/2024 8:13 PM MANAGER NURSING HOME [facility] ABSOLUTE MONOCYTES 0.78 0.20 - 1.00 10(3)/mcL 11/14/2024 8:13 PM MANAGER NURSING HOME [facility] ABSOLUTE EOSINOPHIL 0.14 0.00 - 0.40 10(3)/mcL 11/14/2024 8:13 PM MANAGER NURSING HOME [facility] ABSOLUTE BASOPHILS 0.04 0.00 - 0.10 10(3)/[facility] 11/14/2024 8:13 PM MANAGER NURSING HOME [facility] NRBC PER 100 WBC 0 11/14/19 8:13 PM MANAGER NURSING HOME [facility] Blood Venipuncture / Unknown 11/14/2024 7:59 PM MANAGER NURSING HOME 11/14/2024 8:10 PM MANAGER NURSING HOME us Neri Driscoll MD HEMATOLOGY ORDERABLES Fin al Result [facility] [address] [place] [address] * (ABNORMAL) HCG Beta Subunit Serum Quant (11/14/2024 7:59 PM MANAGER NURSING HOME) HCG BETA SUBUNIT, QUANT 2,198.14(H ) 0.00 - 5.00 mIU/mL 11/14/2024 9:24 PM MANAGER NURSING HOME [facility] Blood Venipuncture / Unknown 11/14/2024 7:59 PM MANAGER NURSING HOME 11/14/2024 8:10 PM MANAGER NURSING HOME Narrative [facility] - 11/14/2024 9:24 PM MANAGER NURSING HOME HCG levels should be interpreted with consideration [...] a urine hCG. us Mali Gupta APRN, COSMETIC MAKER CHEMISTRY ORDERABLES Final Result Performing Organization Address [facility] Co de Phone Number [facility] [address] [place] [address] * D-DIMER [id number] (11/14/2024 7:59 PM MANAGER NURSING HOME) [facility] D DIMER 0.42 <0.50 mcg/mL FEU 11/14/2024 8:54 PM MANAGER NURSING HOME [facility] Blood Venipuncture / Unknown 11/14/2024 7:59 PM MANAGER NURSING HOME 11/14/2024 8:10 PM MANAGER NURSING HOME Narrative [facility] - 11/14/2024 8:54 PM MANAGER NURSING HOME The FDA has approved this method to exclude the diagnosis of DVT and/or PE at the cutoff value of <0.50 mcg/mL FEU. Neri Driscoll MD HEMATOLOGY ORDERABLES Fin al Result Performing Organization Address [facility] Co de Phone Number [facility] [address] [place] [address] * (ABNORMAL) Comprehensive Metabolic Panel (Cmp) [id number] (11/14/2024 7:59 PM MANAGER NURSING HOME) [facility] SODIUM 138 136 - 145 mmol/L 11/14/2024 8:36 PM MANAGER NURSING HOME [facility] POTASSIUM 3.5 3.5 - 5.1 mmol/L 11/14/2024 8:36 PM MANAGER NURSING HOME [facility] CHLORIDE 107 98 - 107 mmol/L 11/14/2024 8:36 PM MANAGER NURSING HOME [facility] CO2, VENOUS 22 22 - 30 mmol/L 11/14/2024 8:36 PM [facility] ANION GAP 12.5 <18.0 mmol/L 11/14/2024 8:36 PM [facility] GLUCOSE 103(H) 70 - 99 mg/dL 11/14/2024 8:36 PM [facility] BUN 9 5 - 18 mg/dL 11/14/2024 8:36 PM [facility] CREATININE, BLOOD 0.87 0.60 - 1.00 mg/dL 11/14/2024 8:36 PM [facility] BUN/CREATININE RATIO 10(L) 12 - 20 ratio 11/14/2024 8:36 PM [facility] TOTAL PROTEIN 7.2 6.0 - 8.0 g/dL 11/14/2024 8:36 PM [facility] ALBUMIN 4.0 3.5 - 5.0 g/dL 11/14/2024 8:36 PM [facility] A/G RATIO 1.3 1.0 - 2.2 11/14/2024 8:36 PM [facility] CALCIUM 8.9 8.7 - 10.5 mg/dL 11/14/2024 8:36 PM [facility] T BILI 0.3 0.2 - 1.2 mg/dL 11/14/2024 8:36 PM [facility] SGOT (AST) 20 6 - 42 U/L 11/14/2024 8:36 PM [facility] SGPT (ALT) 27 6 - 55 U/L 11/14/2024 8:36 PM [facility] ALKALINE PHOSPHATASE 63 40 - 150 U/L 11/14/2024 8:36 PM [facility] GFR, ESTIMATED >60 >=60 11/14/2024 8:36 PM [facility] Comment: Creatinine Clearance is the preferred criteria for selecting drug dose adjustments in renally impaired patients. The GFR is provided as additional pertinent clinical information. GFR is reported in mL/min/1.73 sq m. Calculation based on the Chronic Kidney Disease Epidemiology Collaboration (CKD- EPI) equation refit without adjustment for race. GFR, EST. >60 >=60 025 8:36 PM MANAGER NURSING HOME [facility] GFR, EST. NONAFRICAN >60 >=60 11/14/2024 8:36 PM MANAGER NURSING HOME [facility] Blood Venipuncture / Unknown 11/14/2024 7:59 PM MANAGER NURSING HOME 11/14/2024 8:10 PM MANAGER NURSING HOME us Neri Driscoll MD CHEMISTRY ORDERABLES Audrey l Result [facility] [address] [place] [address] from Last 3 Months Insurance MEDICAID [facility] PLAN Care Teams Metallurgical Analyst Relationship Specialty Start Date End Date Reagan Farnsworth DO [facility] [place], [place] [id number] PCP - General Internal Medicine 07/26/24
--- OUTSIDE RECORDS SUMMARY | 2025-02-05 22:00 | XMS_ITS | Referral Summary ---
Author Organization [facility] Address [address] [place] [address] Care Team Providers Care Kosher Sealer Name Role Phone Velvet López NP Primary Care Provider Encounters Date Type Department Care Team Description 01/01/2025 10:11 PM CDT - 01/01/2025 11:25 PM CDT Emergency [facility] Emergency Department [address] [place] [address] Discharge Disposition: Left without being seen 11/18/2024 10:48 PM SPIRAL RUNNER - 11/19/2024 1:34 AM SPIRAL RUNNER Emergency [facility] Emergency Department 1 [place] [address] Gareth Evans MD Hyperemesis gravidarum (Primary Dx); [...] WEEKS W ENDOVAGINAL ED 11/19/2024 12:46 AM SPIRAL RUNNER ABO/RH STAT 11/18/2024 11:12 PM SPIRAL RUNNER EGFR STAT 11/18/2024 9:07 PM SPIRAL RUNNER DIFFERENTIAL AUTO STAT 11/18/2024 9:0 7 PM SPIRAL RUNNER HCG, BLOOD, QUANTITATIVE STAT 11/18/2024 9:07 PM SPIRAL RUNNER LIPASE STAT 11/18/2024 9:07 PM SPIRAL RUNNER COMPREHENSIVE METABOLIC PANEL STAT 11/18/2024 9:07 PM SPIRAL RUNNER CBC WITH AUTO DIFFERENTIAL STAT 11/18/2024 9:07 PM SPIRAL RUNNER from Last 3 Months Results * XR [...] Gallo Sosa M.D. BB: SHAKIR Report ID: [id number] Reading Location: [id number] Procedure Note Gallo oSsa MD PhD - 01/01/2025 EXAM DESCRIPTION: XR [...] Gallo Sosa M.D. BB: SHAKIR Report ID: [id number] Reading Location: [id number] Reagan Rosas MD IMG XR PROCEDURES Final [...] ORDERABLES Edited Result - Final EFREN SORIANO ([place]) 1 [facility] [place] [address] * eGFR (01/01/2025 8:30 PM CDT) Pathologist [facility] eGFR >90 >=60 mL/min/1. 73 m2 Comment: [...] BLOOD ORDERABLES Final Result Performing Organization Address City/[facility]/ZIP Co de Phone Number EFREN SORIANO ([place]) 1 [facility] [place] [employer] [place] [address] * Differential, auto (01/01/2025 8:30 PM CDT) Pathologist [facility] Neutrophil abs 6.2 1.5 - 6.5 K/cumm Imm gran abs 0.1 0.0 - 0.1 K/cumm [facility] ([place]) Lymphocyte abs 2.7 0.8 - 3.3 K/cumm [facility] ([place]) Monocyte abs 0.6 0.2 - 0.8 K/cumm [...] LAB BLOOD ORDERABLES Final Result EFREN CHRISTIE ([place]) 1 [facility] Department [place] [address] * (ABNORMAL) CBC with auto differential (01/01/2025 8:30 PM CDT) WBC 9.8 3.8 - 9.9 K/cumm Hgb 11.9 11.9 - 15.5 g/dL [facility] ([place]) Hct 34.0(L) 35.6 - 45.5 [...] 42.6 35.7 - 48.[address] [facility] ([place]) NRBC abs 0.00 0.00 - 0.01 K/cumm [facility] ([place]) Blood Venous blood specimen / Unknown 01/01/2025 8:30 PM CDT 01/01/2025 8:38 PM CDT Reagan Rosas MD LAB BLOOD ORDERABLES Final Result [facility] ([place]) 1 [facility] Department [place] [address] * (ABNORMAL) Comprehensive metabolic panel (01/01/2025 8:30 PM CDT) Pathologist [facility] Sodium 137 135 - 145 mmol/L Potassium, pl 3.8 3.3 - 4.9 mmol/L [facility] ([place]) Chloride 103 97 - 110 mmol/L [facility] ([place]) CO2 20(L) 22 - 32 mmol/L [facility] ([place]) Anion gap 15 2 - [...] ORDERABLES Final Result [facility] ([place]) 1 [facility] Department of Laboratories [place], [place] [id number] * ECG 12 lead (01/01/2025 8:23 PM CDT) 01/01/2025 8:23 PM CDT Narrative [facility] - 01/02/2025 6:47 AM CDT Vent Rate: 81 bpm RR Interval: 740 msec OR Interval: 169 msec QRS Duration: 97 msec QT Interval: 369 msec QTC Interval: 406 msec P-R-T [place]: 25 - 39 - 26 degrees IMPRESSION: SINUS RHYTHM NORMAL ECG Electronically Signed By: Jimenez Toledo MD Reagan Rosas MD ECG ORDERABLES Final Resul t [facility] * US Ob Under 14 Weeks W Endovaginal (11/19/2024 12:46 AM SPIRAL RUNNER) Anatomical Region Laterality Modality Abdomen N/A Ultrasound 11/19/2024 12:5 8 AM SPIRAL RUNNER Narrative 11/19/2024 12:59 AM SPIRAL RUNNER EXAM DESCRIPTION: US OB UNDER 14 WEEKS [...] Eusebio Duff M.D. AR: ERNIE Report ID: [id number] Reading Location: [id number] Procedure Note Eusebio Duff MD - 11/19/2024 [...] Eusebio Duff M.D. AR: ERNIE Report ID: [id number] Reading Location: [id number] us Gareth Evans MD IMG OB US PROCEDURES Final R esult * ABO/Rh (11/18/2024 11:12 PM SPIRAL RUNNER) ABO/Rh O Positive Blood 11/18/2024 11:1 2 PM SPIRAL RUNNER 11/18/2024 11:15 PM SPIRAL RUNNER us Gareth Evans MD LAB BLOOD BANK TEST ORDERABL ES Final Result [facility] ([place]) 1 [facility] Department [place] [address] * eGFR (11/18/2024 9:07 PM SPIRAL RUNNER) eGFR >90 >=60 mL/min/1. 73 m2 Comment: [...] last reviewed 2021. Blood 11/18/2024 9:07 PM SPIRAL RUNNER 11/18/2024 9:12 PM SPIRAL RUNNER us Gareth Evans MD LAB BLOOD ORDERABLES Final R esult EFREN SORIANO ([place]) 1 [facility] Department [place] [address] * (ABNORMAL) Differential, auto (11/18/2024 9:07 PM SPIRAL RUNNER) Neutrophil abs 7.9(H) 1.5 - 6.5 K/cumm Imm gran abs 0.1 0.0 - 0.1 K/cumm [facility] ([place]) Lymphocyte abs 3.6(H) 0.8 - 3.3 K/cumm [facility] ([place]) Monocyte abs 0.7 0.2 - 0.8 K/cumm [facility] ([place]) Eosinophil abs 0.2 0.0 - 0.5 K/cumm [facility] ([place]) Basophil abs 0.0 0.0 - 0.1 K/cumm [...] revised on 2018. Blood 11/18/2024 9:07 PM SPIRAL RUNNER 11/18/2024 9:12 PM SPIRAL RUNNER Gareth Evans MD LAB BLOOD ORDERABLES Final R esult [facility] ([place]) 1 [facility] Department [place] [address] * (ABNORMAL) CBC with auto differential (11/18/2024 9:07 PM SPIRAL RUNNER) WBC 12.5(H) 3.8 - 9.9 K/cumm Hgb [...] blood specimen / Unknown 11/18/2024 9:07 PM SPIRAL RUNNER 11/18/2024 9:12 PM SPIRAL RUNNER Gareth Evans MD LAB BLOOD ORDERABLES Final R esult Performing Organization Address [facility] Co de Phone Number EFREN SORIANO ([place]) 1 [place] [address] * (ABNORMAL) hCG, blood, quantitative (11/18/2024 9:07 PM SPIRAL RUNNER) [facility] hCG, quant 7,920.0(H ) 0.0 - 5.0 IUnits/L Comment: Interpretive Data Male: < 5 IU/L Non- premenopausal Female: <5 IU/L The Ryan hCG Beta Quant assay procedure was used. Results from different manufacturers or methods may not be comparable. Serial testing should be performed using the same method. Interpretive Data was last revised on 2023 Blood 11/18/2024 9:07 PM SPIRAL RUNNER 11/18/2024 9:12 PM SPIRAL RUNNER Gareth Evans MD LAB BLOOD ORDERABLES Final R esult Performing Organization Address [facility] Co de Phone Number EFREN SORIANO ([place]) [address] [place] [address] * Lipase (11/18/2024 9:07 PM SPIRAL RUNNER) [facility] Lipase 21 10 - 99 Units/L Blood Venous blood specimen / Unknown 11/18/2024 9:07 PM SPIRAL RUNNER 11/18/2024 9:12 PM SPIRAL RUNNER Gareth Evans MD LAB BLOOD ORDERABLES Final R esult Performing Organization Address [facility] Co de Phone Number EFREN SORIANO ([place]) [address] [place] [address] * (ABNORMAL) Comprehensive metabolic panel (11/18/2024 9:07 PM SPIRAL RUNNER) [facility] Sodium 137 135 - 145 mmol/L Potassium, pl 3.6 3.3 - 4.9 mmol/L [facility] ([place]) Chloride 104 97 - 110 mmol/L [facility] [...] [facility] ([place]) Blood 11/18/2024 9:07 PM SPIRAL RUNNER 11/18/2024 9:12 PM SPIRAL RUNNER us Gareth Evans MD LAB BLOOD ORDERABLES Final R esult [facility] ([place]) 1 [facility] [place] [address] from Last [address] [id number] [facility] Care Teams Kosher Sealer Relationship Specialty Start Date End Date Velvet López NP PCP - General 08/11/19
--- OUTSIDE RECORDS SUMMARY | 2025-02-05 22:00 | XMS_ITS | Clinical Summary ---
Author Organization [facility] Address [address] [place] [address] Care Team Providers Care Filtrose Crusher Name Role Phone Velvet López NP Primary [...] CDT - 01/01/2025 11:25 PM CDT Emergency [facility] Emergency Department [address] [place] [address] Discharge Disposition: Left without being seen 11/18/2024 10:48 PM OIL WELL SERVICE UNIT OPERATOR - 11/19/2024 1:34 AM OIL WELL SERVICE UNIT OPERATOR Emergency [facility] Emergency Department [address] [place] [id number] Gareth Evans MD Hyperemesis gravidarum (Primary Dx); [...] Regular Well Visit/Exam 18-64 2016 Influenza Vaccine (Season Ended) 2025 Hepatitis B Screening Completed 04/08/1999 , 1998, [...] WEEKS W ENDOVAGINAL ED 11/19/2024 12:46 AM OIL WELL SERVICE UNIT OPERATOR ABO/RH STAT 11/18/2024 11:12 PM OIL WELL SERVICE UNIT OPERATOR EGFR STAT 11/18/2024 9:07 PM OIL WELL SERVICE UNIT OPERATOR DIFFERENTIAL AUTO STAT 11/18/2024 9:0 7 PM OIL WELL SERVICE UNIT OPERATOR HCG, BLOOD, QUANTITATIVE STAT 11/18/2024 9:07 PM OIL WELL SERVICE UNIT OPERATOR LIPASE STAT 11/18/2024 9:07 PM OIL WELL SERVICE UNIT OPERATOR COMPREHENSIVE METABOLIC PANEL STAT 11/18/2024 9:07 PM OIL WELL SERVICE UNIT OPERATOR CBC WITH AUTO DIFFERENTIAL STAT 11/18/2024 9:07 PM OIL WELL SERVICE UNIT OPERATOR from Last 3 Months Results * XR [...] Gallo Sosa M.D. BB: SHAKIR Report ID: [id number] Reading Location: [id number] Procedure Note Gallo Sosa MD PhD - [...] Gallo Sosa M.D. BB: SHAKIR Report ID: [id number] Reading Location: [id number] Reagan Rosas MD IMG XR PROCEDURES Final [...] ORDERABLES Edited Result - Final [facility] [address] [place] [address] * eGFR (01/01/2025 8:30 PM [...] ORDERABLES Final Result [facility] ([place]) 1 [facility] [place] [address] * Differential, auto (01/01/2025 8:30 PM CDT) [...] ORDERABLES Final Result [facility] ([place]) 1 [facility] Department [place] [address] * (ABNORMAL) CBC with auto differential (01/01/2025 8:30 PM CDT) WBC 9.8 3.8 - 9.9 K/cumm Hgb 11.9 11.9 - 15.5 g/dL [facility] ([place]) Hct 34.0(L) 35.6 - 45.5 % [facility] ([place]) Plt 257 150 - 400 K/cumm [facility] ([place]) MPV 9.6 9.1 - 12.3 fL [facility] RBC 3.69(L) 3.90 - [...] ORDERABLES Final Result EFREN SORIANO ([place]) 1 [facility] Department [place] [address] * (ABNORMAL) Comprehensive metabolic panel (01/01/2025 8:30 [...] BLOOD ORDERABLES Final Result Performing Organization Address City/[facility] Co de Phone Number [facility] ([place]) 1 [facility] Department [place] [address] * ECG 12 lead (01/01/2025 8:23 PM CDT) 01/01/2025 8:23 PM CDT Narrative [facility] 01/02/2025 6:47 AM CDT Vent Rate: 81 bpm RR Interval: 740 msec [place] Interval: 169 msec QRS Duration: 97 msec QT Interval: 369 msec QTC Interval: 406 msec P-R-T [place]: 25 - 39 - 26 degrees IMPRESSION: SINUS RHYTHM NORMAL ECG Electronically Signed By: Jimenez Toledo MD Reagan Rosas MD ECG ORDERABLES Final Resul t Performing Organization Address [facility] de Phone Number [employer] [facility] * US Ob Under 14 Weeks W Endovaginal (11/19/2024 12:46 AM OIL WELL SERVICE UNIT OPERATOR) Anatomical Region Laterality Modality Abdomen N/A Ultrasound 11/19/2024 12:5 8 AM OIL WELL SERVICE UNIT OPERATOR Narrative 11/19/2024 12:59 AM OIL WELL SERVICE UNIT OPERATOR EXAM DESCRIPTION: US OB UNDER 14 WEEKS [...] Eusebio Duff M.D. AR: ERNIE Report ID: [id number] Reading Location: [id number] Procedure Note Eusebio Duff MD - 11/19/2024 [...] Eusebio Duff M.D. AR: ERNIE Report ID: [id number] Reading Location: [id number] us Gareth Evans MD IMG OB US PROCEDURES Final R esult * ABO/Rh (11/18/2024 11:12 PM OIL WELL SERVICE UNIT OPERATOR) ABO/Rh O Positive Blood 11/18/2024 11:1 2 PM OIL WELL SERVICE UNIT OPERATOR 11/18/2024 11:15 PM OIL WELL SERVICE UNIT OPERATOR us Gareth Evans MD LAB BLOOD BANK TEST ORDERABL ES Final Result EFREN SORIANO [place] 1 [facility] [place] [address] * eGFR (11/18/2024 9:07 PM OIL WELL SERVICE UNIT OPERATOR) eGFR >90 >=60 mL/min/1. 73 m2 Comment: [...] last reviewed 2021. Blood 11/18/2024 9:07 PM OIL WELL SERVICE UNIT OPERATOR 11/18/2024 9:12 PM OIL WELL SERVICE UNIT OPERATOR us Gareth Evans MD LAB BLOOD ORDERABLES Final R esult [facility] ([place]) 1 [facility] [place] [address] * (ABNORMAL) Differential, auto (11/18/2024 9:07 PM OIL WELL SERVICE UNIT OPERATOR) Neutrophil abs 7.9(H) 1.5 - 6.5 K/cumm [...] revised on 2018. Blood 11/18/2024 9:07 PM OIL WELL SERVICE UNIT OPERATOR 11/18/2024 9:12 PM OIL WELL SERVICE UNIT OPERATOR us Gareth Evans MD LAB BLOOD ORDERABLES Final R esult EFREN SORIANO ([place]) 1 [facility] Department [place] [address] * (ABNORMAL) CBC with auto differential (11/18/2024 9:07 PM OIL WELL SERVICE UNIT OPERATOR) WBC 12.5(H) 3.8 - 9.9 K/cumm Hgb 12.2 11.9 - 15.5 g/dL [facility] ([place]) Hct 35.5(L) 35.6 - 45.5 % EFREN SORIANO ([place]) Plt 277 150 - 400 K/cumm EFREN SORIANO ([place]) MPV 9.3 9.1 - 12.3 fL CERNER [...] blood specimen / Unknown 11/18/2024 9:07 PM OIL WELL SERVICE UNIT OPERATOR 11/18/2024 9:12 PM OIL WELL SERVICE UNIT OPERATOR Gareth Evans MD LAB BLOOD ORDERABLES Final R esult Performing Organization Address City/[facility]/ZIP Co de Phone Number EFREN SORIANO ([place]) 1 [facility] [place] [address] * (ABNORMAL) hCG, blood, quantitative (11/18/2024 9:07 PM OIL WELL SERVICE UNIT OPERATOR) [facility] hCG, quant 7,920.0(H ) 0.0 - 5.0 IUnits/L Comment: Interpretive Data Male: < 5 IU/L Non- premenopausal Female: <5 IU/L The Ryan hCG Beta Quant assay procedure was used. Results from different manufacturers or methods may not be comparable. Serial testing should be performed using the same method. Interpretive Data was last revised on 2023 Blood 11/18/2024 9:07 PM OIL WELL SERVICE UNIT OPERATOR 11/18/2024 9:12 PM OIL WELL SERVICE UNIT OPERATOR Gareth Evans MD LAB BLOOD ORDERABLES Final R esult Performing Organization Address City/[facility]/ZIP Co de Phone Number EFREN SORIANO ([place]) 1 [facility] Department of [address] [place] [place] [address] * Lipase (11/18/2024 9:07 PM OIL WELL SERVICE UNIT OPERATOR) Lipase 21 10 - 99 Units/L Blood Venous blood specimen / Unknown 11/18/2024 9:07 PM OIL WELL SERVICE UNIT OPERATOR 11/18/2024 9:12 PM OIL WELL SERVICE UNIT OPERATOR us Gareth Evans MD LAB BLOOD ORDERABLES Final R esult [facility] ([place]) 1 [facility] Department [place] [address] * (ABNORMAL) Comprehensive metabolic panel (11/18/2024 9:07 PM OIL WELL SERVICE UNIT OPERATOR) Sodium 137 135 - 145 mmol/L Potassium, pl 3.6 3.3 - 4.9 mmol/L [facility] ([place]) Chloride 104 97 - 110 mmol/L [facility] ([place]) CO2 23 22 - 32 mmol/L [facility] ([place]) Anion gap 10 2 - 15 mmol/L [facility] ([place]) BUN 10 6 - 25 mg/dL [facility] Creatinine 0.77 0.60 - [...] [facility] ([place]) Blood 11/18/2024 9:07 PM OIL WELL SERVICE UNIT OPERATOR 11/18/2024 9:12 PM OIL WELL SERVICE UNIT OPERATOR Gareth Evans MD LAB BLOOD ORDERABLES Final R esult [facility] ([place]) 1 [facility] [place] [address] from Last 3 Months Insurance [facility] Care Teams Filtrose Crusher Relationship Specialty Start Date End Date Velvet López NP PCP - General 08/11/19
--- OUTSIDE RECORDS SUMMARY | 2025-02-05 22:00 | XMS_ITS | Data Portability ---
Author Organization [facility] [place] Address [address] [place] [address] [place] [address] Care Team Providers Care Architectural Draftsman Name Role Phone JASON HANSEN Primary Care Provider [phone] Assessment Encounter Date Assessment Date Assessment LastModified by Organization Details LastModified Time 01/24/2025 01/24/2025 Patient is ___weeks . Discussed plan. Not available 01/24/2025 13:33:50 Plan of Treatment Reminders Order Date Submit Date Provider Last Modified By Organization Details Last Modified Time Details Appointments U/S OB BASELIN E 2024 10:00A M ULTRASOUND Not available Not available Not available OB ROUTINE 2024 11:00A M Emily Verdugo CNM Not available Not available Not available Lab culture , urine 2024 025 [facility] (Lab), [address] [facility], [place], [address], 01/26/2025 08:13:53 urinaly sis, dipstic k 2024 025 [email or web address] [facility], [address], [place], [address], 01/24/2025 12:29:32 drug screen, urine 2024 025 [email or web address] [place], [address], [place], [address], 01/04/2025 12:32:13 culture , urine 2024 025 [facility] (Lab), [address], [place], [address], 01/06/2025 02:46:10 genetic screen, unspeci fied specime n 2024 025 [facility], [address], [place], [address], 01/01/2025 12:17:50 aneuplo idy risk, chromos ome specifi c circula ting cell free (ccf) DNA, materna l serum 2024 025 [facility], [address], [place], [address], 12/29/2024 02:06:01 HbA1c (hemogl obin A1c), blood 2024 025 [facility] (Lab), [address], [place], [address], 12/23/2024 12:42:35 type + screen, serum 2024 025 [facility] (Lab), [address], [place], [address], 12/23/2024 12:42:35 rubella igg Ab, titer, serum 2024 025 [facility] (Lab), [address], [place], [address], 12/23/2024 12:42:34 CBC w/ auto diff 2024 025 [facility] (Lab), [address], [place], [address], 12/23/2024 12:42:33 hepatit is C virus Ab, serum 2024 025 [facility] (Lab), [address], [place], [address], 12/23/2024 12:42:35 HBsAg (hepati tis B surface Ag), serum 2024 025 [facility] (Lab), [address] [facility], [place], [address], 12/23/2024 12:42:34 RPR (rapid plasma reagin) , serum 2024 025 [facility] (Lab), [address] [facility], [place], [address], 12/23/2024 12:42:36 HIV 1+2 AB + HIV 1 p24 Ag, qualita tive immunoa ssay, serum 2024 025 [facility] (Lab), [address], [place], [address], 12/23/2024 12:42:34 Referral None recorde d. Procedures None recorde d. Surgeries None recorde d. Imaging US, obstetr ic, nuchal translu cency 2024 025 [email or web address] [place], [facility] [address], [place], [address], 01/04/2025 19:29:43 Medication Orders scopola mine 1 mg over 3 days transde rmal patch 2024 025 [id number], [address], [place], [place], [id number], 01/24/2025 13:34:16 albuter ol sulfate HFA 90 mcg/act uation aerosol inhaler 2024 025 [email or web address] [id number], [address], [place], [address], 01/04/2025 12:32:12 metoclo pramide 10 mg tablet 2024 025 [email or web address] [id number], [id number] , [place], [address], 01/04/2025 12:32:12 Patient TargetsNo targets recorded. Patient InstructionsNo instructions recorded. Reason for Referral None Reported. Results Created Date Observation Date Name Description Value Unit Range Abnormal Flag Note LastModifiedBy Organization Detail LastModifiedTime 12/30/1912/29/2024 [UNIT Y] ANEUP LOIDY NIPT fraction 4.5% normal Not Available [facility] [address] [facility], [place], [address], 12/29/2024 02:06:01 12/30/1912/29/2024 [UNIT Y] ANEUP LOIDY NIPT 22Q11.2 microdeletio n LOW RISK <1 in 10,000 normal Not Available [facility] [address] [facility], [place], [address], 12/29/2024 02:06:01 12/30/19 25 12/29/2024 [UNIT Y] ANEUP LOIDY NIPT sex chromosome aneuploidy NOT DETECT ED normal Not Available [facility] [address] [facility], [place], [address], 12/29/2024 02:06:01 12/30/19 25 12/29/2024 [UNIT Y] ANEUP LOIDY NIPT monosomy X LOW RISK <1 in 10,000 normal Not Available [facility] [address] [facility], [place], [address], 12/29/2024 02:06:01 12/30/19 25 12/29/2024 [UNIT Y] ANEUP LOIDY NIPT trisomy 13 LOW RISK <1 in 10,000 normal Not Available [facility] [address] [place], [address], 12/29/2024 02:06:01 12/30/19 25 12/29/2024 [UNIT Y] ANEUP LOIDY NIPT trisomy 18 LOW RISK <1 in 10,000 normal Not Available [facility] [address] [place], [address], 12/29/2024 02:06:01 12/30/19 25 12/29/2024 [UNIT Y] ANEUP LOIDY NIPT trisomy 21 LOW RISK <1 in 10,000 normal Not Available [facility] [address] [facility], [place], [address], 12/29/2024 02:06:01 12/30/19 25 12/29/2024 [UNIT Y] ANEUP LOIDY NIPT sex MALE normal Not Available [facility] [address] [facility], [place], [address], 12/29/2024 02:06:01 12/30/19 25 12/29/2024 [UNIT Y] ANEUP LOIDY NIPT gestation SINGLE TON normal Not Available [facility] [address] [facility], [place], [address], 12/29/2024 02:06:01 12/30/19 25 12/29/2024 [UNIT Y] ANEUP LOIDY NIPT for detailed report, see pdf See PDF normal Not Available [facility] [address] [facility], [place], [address], 12/29/2024 02:06:01 01/02/20 25 01/01/2025 [UNIT Y] THANG Serrato sickle cell disease/beta -thalassemia /hemoglobino pathies carrier screen NEGATI VE normal Not Available [facility] [address] [facility], [place], [address], 01/01/2025 12:17:50 01/02/20 25 01/01/2025 [UNIT Y] THANG Serrato alpha-thalas semia carrier screen NEGATI VE normal Not Available [facility] [address] [facility], [place], [address], 01/01/2025 12:17:50 01/02/20 25 01/01/2025 [UNIT Y] THANG Serrato cystic fibrosis carrier screen NEGATI VE normal Not Available [facility] [address], [place], [address], 01/01/2025 12:17:50 01/02/20 25 01/01/2025 [UNIT Y] THANG Serrato spinal muscular atrophy carrier screen NEGATI VE 2 SMN1 copies , SNP not presen t normal Not Available [facility] [address], [place], [address], 01/01/2025 12:17:50 01/02/20 25 01/01/2025 [UNIT Y] THANG Serrato for detailed report, see pdf See PDF normal Not Available [facility] [address], [place], [address], 01/01/2025 12:17:50 12/07/19 25 12/07/2024 CT/GC AND TRICH OMONA S VAGIN COLEEN (RRNA ), URINE chlamydia trachomatis, PCR Negati ve negati ve Not Available [facility] (Lab) [address], [place], [address], 12/11/2024 23:55:18 12/07/19 25 12/07/2024 CT/GC AND TRICH OMONA S VAGIN COLEEN (RRNA ), URINE neisseria gonorrhoeae, PCR Negati ve negati ve Not Available [facility] (Lab) [address], [place], [address], 12/11/2024 23:55:18 12/07/19 25 12/07/2024 CT/GC AND TRICH OMONA S VAGIN COLEEN (RRNA ), URINE trichomonas vaginalis ribosomal RNA (rrna) Negati ve negati ve Not Available [facility] (Lab) [address], [place], [address], 12/11/2024 23:55:18 12/23/19 25 12/22/2024 CBC W/DIF F WBC 9.2 10'3/ uL 3.5-10 .5 Not Available [facility] (Lab) [address], [place], [address], 12/23/2024 12:42:33 12/23/19 25 12/22/2024 CBC W/DIF F RBC 4.37 10'6/ uL (based on docume nted legal sex) 3.80-5 .20 Not Available [facility] (Lab) [address] [address] [facility], [place], [address], 12/23/2024 12:42:33 12/23/19 25 12/22/2024 CBC W/DIF F HGB 13.5 g/dL (based on docume nted legal sex) 11.6-1 5.4 Not Available [facility] (Lab) [address] [facility], [place], [address], 12/23/2024 12:42:33 12/23/19 25 12/22/2024 CBC W/DIF F HCT 41.3 % (based on docume nted legal sex) 34.0-4 5.0 Not Available [facility] (Lab) [address] [facility], [place], [address], 12/23/2024 12:42:33 12/23/19 25 12/22/2024 CBC W/DIF F MCV 94.5 fL 80.0-9 9.0 Not Available [facility] (Lab) [address] [facility] [address], [place], [address], 12/23/2024 12:42:33 12/23/19 25 12/22/2024 CBC W/DIF F MCH 30.9 pg 27.0-3 4.0 Not Available [facility] (Lab) [address] [facility] [address], [place], [address], 12/23/2024 12:42:33 12/23/19 25 12/22/2024 CBC W/DIF F MCHC 32.7 g/dL 32.0-3 5.5 Not Available [facility] (Lab) [address] [facility] [address], [place], [address], 12/23/2024 12:42:33 12/23/19 25 12/22/2024 CBC W/DIF F RDW 13.1 % 11.0-1 5.0 Not Available [facility] (Lab) [address] [facility] [address], [place], [address], 12/23/2024 12:42:33 12/23/19 25 12/22/2024 CBC W/DIF F plt 309 10'3/ uL 150-40 0 Not Available [facility] (Lab) [address] [facility], [place], [address], 12/23/2024 12:42:33 12/23/19 25 12/22/2024 CBC W/DIF F MPV 10.3 fL 8.8-12 .1 Not Available [facility] (Lab) [address] [facility], [place], [address], 12/23/2024 12:42:33 12/23/19 25 12/22/2024 CBC W/DIF F neutrophils 70.8 % 34.0-7 3.0 Not Available [facility] (Lab) [address] [address] [facility], [place], [address], 12/23/2024 12:42:33 12/23/19 25 12/22/2024 CBC W/DIF F lymphocytes 22.4 % 15.0-5 0.0 Not Available [facility] (Lab) [address] [facility], [place], [address], 12/23/2024 12:42:33 12/23/19 25 12/22/2024 CBC W/DIF F monocytes 5.4 % 1.0-15 .0 Not Available [facility] (Lab) [address] [facility], [place], [address], 12/23/2024 12:42:33 12/23/19 25 12/22/2024 CBC W/DIF F eosinophils 1.0 % 0.0-8. 0 Not Available [facility] (Lab) [address] [facility], [place], [address], 12/23/2024 12:42:33 12/23/19 25 12/22/2024 CBC W/DIF F basophils 0.2 % 0.0-2. 0 Not Available [facility] (Lab) [address] , [place], [address], 12/23/2024 12:42:33 12/23/19 25 12/22/2024 CBC W/DIF [...] separ ately if prese nt. Not Available [facility] (Lab) [address], [place], [address], 12/23/2024 12:42:33 12/23/19 25 12/22/2024 CBC W/DIF F absolute neutrophils 6.5 10'3/ uL 1.5-8. 0 Not Available [facility] (Lab) [address] [facility], [place], [address], 12/23/2024 12:42:33 12/23/19 25 12/22/2024 CBC W/DIF F absolute lymphocytes 2.1 10'3/ uL 1.0-4. 0 Not Available [facility] (Lab) [address] , [place], [address], 12/23/2024 12:42:33 12/23/19 25 12/22/2024 CBC W/DIF F absolute monocytes 0.5 10'3/ uL 0.2-1. 0 Not Available [facility] (Lab) [address] , [place], [address], 12/23/2024 12:42:33 12/23/19 25 12/22/2024 CBC W/DIF F absolute eosinophils 0.1 10'3/ uL 0.0-0. 6 Not Available [facility] (Lab) [address], [place], [address], 12/23/2024 12:42:33 12/23/19 25 12/22/2024 CBC W/DIF F absolute basophils 0.0 10'3/ uL 0.0-0. 3 Not Available [facility] (Lab) [address] [facility], [place], [address], 12/23/2024 12:42:33 12/23/19 25 12/22/2024 CBC W/DIF F absolute immature granulocytes 0.0 10'3/ uL 0.00-0 .10 Refer ence range s for nonbi nary/ inter sex or unspe cifie d gende r patie nts have not been estab lishe d. Pleas e refer to the keno wing table for range s estab lishe d for cisge nder patie nts and evalu ate in the clini felicia brooke xt of the indiv idual patie nt: https ://brandt harmon book. nm.or g/gen derx Not Available [facility] (Lab) [address] [facility] [address], [place], [address], 12/23/2024 12:42:33 12/23/19 25 12/22/2024 HEPAT ITIS B SURFA CE ANTIG EN hepatitis B surface antigen Non-re active non-re active This assay was perfo rmed using [employer] ratio n reage nts and test kits. Value s obtai todd with other assay metho ds or kits canno t be used inter white eably . Not Available [facility] (Lab) [address], [place], [address], 12/23/2024 12:42:34 12/23/19 25 12/22/2024 RUBEL LA IGG ANTIB DANIEL, QUANT rubella antibodies, IgG Reacti ve reacti ve Not Available [facility] (Lab) [address] [facility] [address], [place], [address], 12/23/2024 12:42:34 12/23/19 25 12/22/2024 RUBEL LA IGG ANTIB DANIEL, QUANT rubella antibodies, IgG quant 28.6 IU/mL >=10 Non-r eacti ve (Non- Immun e) <10 IU/mL React kim (Immu ne) > or = 10 IU/mL Not Available [facility] (Lab) [address] , [place], [address], 12/23/2024 12:42:34 12/23/19 25 12/22/2024 HIV 1/2 ANTIG EN/AN TIBOD Y, REFLE X CONFI RMATI ON HIV antigen/anti body Nonrea ctive nonrea ctive HIV-1 antig en and HIV-1 /HIV- 2 antib odies were not detec ansley. No labor atory evide nce of HIV infec tion. Not Available [facility] (Lab) [address], [place], [address], 12/23/2024 12:42:34 12/23/19 25 12/22/2024 HEPAT ITIS C ANTIB DANIEL SCREE N, REFLE X TO CONFI RMATI ON hepatitis C antibody Non-re active non-re active Antib odies to HCV Not Detec ansley, does not exclu de the possi bilit y of expos ure to HCV. Not Available [facility] (Lab) [address], [place], [address], 12/23/2024 12:42:35 12/23/19 25 12/22/2024 TYPE/ RH/SC REEN ABO/Rh type O POS Not Available [facility] (Lab) [address], [place], [address], 12/23/2024 12:42:35 12/23/19 25 12/22/2024 TYPE/ RH/SC REEN antibody screen NEG Not Available [facility] (Lab) [address], [place], [address], 12/23/2024 12:42:35 12/23/19 25 12/22/2024 TYPE/ RH/SC REEN exp date 2024 23:59 Not Available [facility] (Lab) [address] [address] [facility], [place], [address], 12/23/2024 12:42:35 12/23/19 25 12/22/2024 HEMOG LOBIN A1C hemoglobin A1C 5.1 % 4.0-5. 6 The Ameri can Diabe pat Assoc iatio n recom mends that a prima ry goal of thera py shoul d be a HBA1C of < 7% and that physi cians shoul d reeva luate the treat ment regim en in patie nts with HBA1C value s consi stent ly > 8%. <5.7% Zayra l 5.7 - 6.4% Incre ased risk for diabe pat >=6.5 % Diagn ostic of diabe pat <7.0% Goal of thera py >8.0% Actio n sugge sted Not Available [facility] (Lab) [address] [facility] [address], [place], [address], 12/23/2024 12:42:35 12/23/19 25 12/22/2024 RPR SCREE N, REFLE X TITER /CONF IRMAT ION RPR qualitative Nonrea ctive nonrea ctive Not Available [facility] (Lab) [address] [facility], [place], [address], 12/23/2024 12:42:36 01/05/20 25 01/04/2025 CULTU RE: URINE result report SEE RESULT S BELOW Test: Cultu re: Urine Speci men Sourc e: Urine - Clean Catch Speci men Type: Urine Speci men Date: 2024 1119 Resul t Date: 2024 0142 Resul t Statu s: Final resul t Abnor mal: No Resul ting Lab: [facility] [address] [facility] [address] Tel: CULTU RE ----- ----- ----- --- Cultu re resul t (>=3 organ isms prese nt) indic ates possi ble conta minat ion. Repea t cultu re if sympt oms indic ate. Not Available [facility] (Lab) [address], [place], [address], 01/06/2025 02:46:09 01/05/20 25 01/04/2025 drug scree n, urine Amphetamines : negati ve Not Available [facility] [address], [place], [address], 01/04/2025 12:26:50 01/05/20 25 01/04/2025 drug scree n, urine Cannabinoids : negati ve Not Available [facility] [address], [place], [address], 01/04/2025 12:26:50 01/05/20 25 01/04/2025 drug scree n, urine Cocaine: negati ve Not Available [facility] [address], [place], [address], 01/04/2025 12:26:50 01/05/20 25 01/04/2025 drug scree n, urine Opiates: negati ve Not Available [facility] [address], [place], [address], 01/04/2025 12:26:50 01/05/20 25 01/04/2025 drug scree n, urine Phenocyclidi ne: negati ve Not Available [facility] [address], [place], [address], 01/04/2025 12:26:50 01/05/20 25 01/04/2025 drug scree n, urine Barbiturates : negati ve Not Available [facility] [address], [place], [address], 01/04/2025 12:26:50 01/05/20 25 01/04/2025 drug scree n, urine Benzodiazepi justino: negati ve Not Available [facility] [address], [place], [address], 01/04/2025 12:26:50 01/05/20 25 01/04/2025 drug scree n, urine Ethanol: negati ve Not Available [facility] [address], [place], [address], 01/04/2025 12:26:50 01/05/20 25 01/04/2025 drug scree n, urine Hallucinogen s: negati ve Not Available [facility] [address], [place], [address], 01/04/2025 12:26:50 01/05/20 25 01/04/2025 drug scree n, urine Inhalants: negati ve Not Available [facility] [address], [place], [address], 01/04/2025 12:26:50 01/05/20 25 01/04/2025 drug scree n, urine Anabolic Steroids: negati ve Not Available [facility] [address], [place], [address], 01/04/2025 12:26:50 01/25/20 25 01/24/2025 CULTU RE: URINE result report SEE RESULT S BELOW Test: Cultu re: Urine Speci men Sourc e: Urine - Clean Catch Speci men Type: Urine Speci men Date: 025 1145 Resul t Date: 2024 0709 Resul t Statu s: Final resul t Abnor mal: No Resul ting Lab: [facility] [address] [facility] [address] [facility] [address] [facility] [address] Tel: CULTU RE ----- ----- ----- --- Cultu re resul t (>=3 organ isms prese nt) indic ates possi ble conta minat ion. Repea t cultu re if sympt oms indic ate. Not Available [facility] (Lab) [address], [place], [address], 01/26/2025 08:13:53 01/25/20 25 01/24/2025 urina lysis , dipst ick Leukocytes +2 Not Available [facility] [address], [place], [address], 01/24/2025 12:28:29 01/25/20 25 01/24/2025 urina lysis , dipst ick Nitrite normal Not Available [facility] [address], [place], [address], 01/24/2025 12:28:29 01/25/20 25 01/24/2025 urina lysis , dipst ick Urobilinogen normal Not Available [facility] [address], [place], [address], 01/24/2025 12:28:29 01/25/20 25 01/24/2025 urina lysis , dipst ick Protein trace Not Available [facility] [address], [place], [address], 01/24/2025 12:28:29 01/25/20 25 01/24/2025 urina lysis , dipst ick pH 6 Not Available [facility] [address], [place], [address], 01/24/2025 12:28:29 01/25/20 25 01/24/2025 urina lysis , dipst ick Specific [place] 1.020 Not Available [facility] [address], [place], [address], 01/24/2025 12:28:29 01/25/20 25 01/24/2025 urina lysis , dipst ick Ketone +3 Not Available [facility] [address], [place], [address], 01/24/2025 12:28:29 01/25/20 25 01/24/2025 urina lysis , dipst ick Bilirubin normal Not Available [facility] [address], [place], [address], 01/24/2025 12:28:29 01/25/20 25 01/24/2025 urina lysis , dipst ick Glucose normal Not Available [facility] [address], [place], [address], 01/24/2025 12:28:29 01/25/20 25 01/24/2025 urina lysis , dipst ick Appearance normal Not Available [facility] [address], [place], [address], 01/24/2025 12:28:29 01/25/20 25 01/24/2025 urina lysis , dipst ick Color normal Not Available [facility] [address], [place], [address], 01/24/2025 12:28:29 11/25/19 25 11/25/2024 US, obste tric, 1st trime ster No observ ation record ed. [email or web address] [address] [facility], [place], [address], 11/26/2024 13:42:37 11/25/19 25 11/25/2024 US, obste tric, trans vagin al No observ ation record ed. [email or web address] [facility] [address], [place], [address], 11/25/2024 18:35:31 12/07/19 25 12/07/2024 US, obste tric, 1st trime ster No observ ation record ed. [email or web address] [address], [place], [address], 12/08/2024 01:17:05 01/05/20 25 01/04/2025 US, obste tric, nucha l trans lucen cy No observ ation record ed. [email or web address] [facility] [address], [place], [address], 01/04/2025 12:55:57 01/05/20 25 01/04/2025 US, obste tric, nucha l trans lucen cy No observ ation record ed. [email or web address] [address], [place], [address], 01/04/2025 12:47:16 Result Notes None recorded. Problems Name Problem SNOMED Code Status Onset Date Resolution Date Notes Provider Name and Address Organization Details Recorded Time 30739696 Active 2024 Mariann quintero, [facility] 12:04:02 Mild intermitt ent asthma 651609760 Active albuterol PRN CONOR RESENDEZ MD [address], [place], [address], [facility] 12:31:51 Obesity 642412552 Active 34 week testing CONOR RESENDEZ MD [address], [place], [address], [facility] 12:32:01 Migraine 73459877 Active Maday quintero, [facility] 12:30:36 Body mass index 30+ - obesity 833279127 Active 2024 start nst 34wks Maday quintero, [facility] 12:17:58 Asthma 773888889 Active 2024 Maday quintero, [facility] 12:18:13 Migraine 06958454 Active Maday quintero [facility] 12:30:36 Problem Notes None recorded. Procedures Surgical History Date Name Laterality Status Provider Name and Address Organization Details Recorded Time 3 Date of Last Pap [facility]/17/2023 12:53:04 8 hernia repair completed Melida Abner [facility] 02/11/2024 11:17:16 4 extraction of wisdom tooth completed [facility] 01/24/2025 12:24:58 8 tonsilectomy/a denoids completed [facility] 01/24/2025 12:19:40 9 procedure on ear completed [facility] 01/24/2025 12:24:30 Imaging Results Imaging Date Name Status LastModified by Organization Details LastModified Time 11/25/2024 US, obstetric, 1st trimester completed [email or web address] [address], [place], [address], 11/26/2024 13:42:37 11/25/2024 US, obstetric, transvaginal completed [email or web address] [facility] [address], [place], [address], 11/25/2024 18:35:31 12/07/2024 US, obstetric, 1st trimester completed [email or web address] [address], [place], [address], 12/08/2024 01:17:05 01/04/2025 US, obstetric, nuchal translucency completed [email or web address] [facility] [address], [place], [address], 01/04/2025 12:55:57 01/04/2025 US, obstetric, nuchal translucency completed [email or web address] [address], [place], [address], 01/04/2025 12:47:16 Procedure Notes None recorded. Medical Equipment None Reported. Allergies Allergen ID Allergen Name Allergen Category Reaction Reaction Severity Criticality Documentation Date Start Date Code Code System Note Provider Name and Address Organization Details Recorded Time sulfameth oxazole / trimethop rim medicatio n Not available Not available Not available 02/24/2023 72123 RxNorm Carey quintero, [facility] 12:10:33 Substance with sulfonami de structure and antibacte rial mechanism of action (substanc e) medicatio n Not available Not available Not available 02/24/2023 45288 8003 SNOMED Carey quintero, [facility] 12:10:39 Medications Name Sig Start Date [...] A DAY NEEDED FOR NAUSEA AND VOMITING 01/24 completed Not Available Not Available Not Available nystatin-tr iamcinolone 100,000 unit/gram-0 .1 % [...] Not Available Not Available No t Available scopolamine 1 mg over 3 days transdermal patch Apply 1 patch by transderm al route for 3 days. 2024 active Not Available Not Available Not Avai lable methylpredn isolone 4 mg tablets in a [...] Updated DateTime 12/07/2024 165.1 cm 51.1 kg/m2 738752.8 6 g 114 mm[Hg] 74 mm[Hg] [facility] 11:28:09 Date Recorded Body height Body mass index (BMI) Body weight Systolic blood pressure Diastolic blood pressure Provider Name and Address Organization Details Last Updated DateTime 01/04/2025 165.1 cm 51.8 kg/m2 730261.2 3 g 125 mm[Hg] 81 mm[Hg] [facility] 11:58:44 Date Recorded Body weight Body mass index (BMI) Body height Systolic blood pressure Diastolic blood pressure Provider Name and Address Organization Details Last Updated DateTime 01/24/2025 053411.4 1181 g 52.1 kg/m2 165.1 cm 113 mm[Hg] 75 mm[Hg] Maday Contreras [facility] 12:01:45 Social History Question Answer Notes LastModified by Organizat ion Details LastModified Time Tobacco Smoking Status Former Smoker Maday Contreras [facility] 01/24/2025 12:19:12 What Is Your Level Of Alcohol Consumption? None Information not available 01/24/2025 If You Are , What Was Your Level Of Alcohol Consumption Prior To ? Occasional [email or web address] Information not available 01/24/2025 Are You Blind Or Do You Have Difficulty Seeing? No Information not available 02/24/2023 What Is Your Level Of Caffeine Consumption? Occasional [email or web address] Information not available 01/24/2025 In The 14 Days Before Symptom Onset, [...] No Information not available 02/24/2023 Do You Or Have You Ever Used E-cigarettes Or Vape? Current User Of Electronic Cigarettes [email or web address] Information not available 01/24/2025 Do You Use Your Seat Belt Or Car Seat Routinely? Yes [email or web address] Information not available 12/07/2024 Are You Sexually Active? Yes [email or web address] Information not available 12/07/2024 Do You Have Smoke And Carbon Monoxide Detectors In Your Home? Yes [email or web address] Information not available 12/07/2024 Do You Use Sunscreen Routinely? Yes [email or web address] Information not available 12/07/2024 Do You Or Have You Ever Used Any Other Forms Of Tobacco Or Nicotine? Yes Information not available 01/24/2025 Sex: Unknown Functional Status Question Answer Note LastModified by Organizat ion Details LastModified Time Do you have difficulty walking or climbing stairs? No [email or web address] Information not available 07/16/2023 Are you able to walk? [email or web address] Information not available 02/24/2023 Are you able to care for yourself? Yes [email or web address] Information not available 07/16/2023 Do you have difficulty dressing or bathing? No [email or web address] Information not available 07/16/2023 Mental Status None [...] (Food, seasonal, environmental ) N Other N Blood Transfusion N Drug/Latex Allergies/Reactions N Breast Cancer N Dermatologic Disorders N Lung Disease N Defects or Inherited Disease N Breast Problem N Gestational Diabetes N Hematologic disorders N Anesthesia Complications N History of STI N Deep Vein Thrombosis N Polycystic ovary syndrome N Anxiety Disorder N Autoimmune disease N Arthritis N Infertility N Polyps N Acid Reflux (GERD) N History of abnormal pap N Cancer N Stroke N Varicosities N Neurologic/Epilepsy N Endometriosis N High Cholesterol N Headaches Y Fibromyalgia N Kidney Disease N Heart Problems N Kidney or Bladder Problems N Thyroid Problems N GI Problems N Eating Disorder [...] of Flow (days) 5 Current Control Method Age at First Child 16 Are cycles [...] SNOMED-CT Code Diagnosis ICD10 Code Diagnosis Note [id number] SHIMA Arreaga [facility] [address],[facility] [place] [address] 02/24/2023 11:30:50 02/24/2023 14:23:30 Vaginitis 12534321 N76.0 suspect BV/yeastva ginitis panel sentsti endocervic al testing sentvulvar care guidelines discussedR x sent, R/B/A discussedR TC for WWE, due for primary pap Time spent in visit is a total of 22 mins with at least 50% of visit consisting of counseling and review of plan of care Vaginal discharge 106074 006 N89.8 Venereal d isease screening 292748987 Z11.3 [id number] Tammie Mendez CLIF [facility] [address],[facility] [place] [address] 03/17/2023 09:25:18 03/17/2023 10:56:39 Gynecologic examination 26053664 Z01.419 Take Calcium with Vitamin D 1200mg [...] desired. WWEBC - condoms, happy with this methodtrjacob d nexplanon previously and had negative mood changes, declined BC at this timePrimar y pap done todaySTI testing declineddi scussed hirsutism and management options, labs orderedmot her with ovarian cancer at unknown age, maternal grandmothe r with ovarian cancer and breast cancer at unknown age. Genetic testing discussed, handout given.RTC in 1 year or sooner if needed Adult heal th examination 536313164 Z00.00 Hirsutism 939054368 L68. 0 [id number] SHIMA Arreaga [facility] [address],[facility] [place] [address] 07/16/2023 11:45:30 07/16/2023 13:54:42 Venereal disease screening 677415946 Z11.3 blood STI panel orderedgc/ ct/trich testing sentsafe sexual practices discussed and condom use encouraged Time spent in visit is a total of 25 mins with at least 50% of visit consisting of counseling and review of plan of care. Sexually t ransmitted infectious disease 8856991 A64 [id number] [facility] [address],[facility] [place] [address] 02/11/2024 11:06:27 02/11/2024 11:57:11 Menorrhagia 179723860 N92.0 Today we agreed to start with [...] Body mass index 40+ - severely obese 307541058 Z68.43 [id number] SHIMA Arreaga [facility] [address],[place] [address] 04/26/2024 13:48:25 04/26/2024 14:50:07 Dysmenorrhea 261821076 N94.6 recommende d progestero ne only options [...] counseling and review of plan of care. 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 Exam today within normal limits.2. [...] desires at 10 weeks, orders given today. [id number] Anisha Johnson [facility] [address] [address] 01/04/2025 10:46:37 01/04/2025 11:49:00 screening 800026315 Z36.82 Z3A.12 [id number] CONOR RESENDEZ MD [facility] [address] [address] 01/04/2025 10:46:48 01/04/2025 12:36:54 Nausea and vomiting in 5709053669 O21.9 Asthma 206625712 J45.90 9 Routine an tenatal care 289863556 Z34.91 screening 2437 16276 Z36.0 Maternal o besity complicating , childbirth and the puerperium, antepartum 6273876900 07 O99.211 Gestation period, 12 weeks 40988714 Z3A.12 [id number] Emily Verdugo CNM [facility] [address] [address] 01/24/2025 11:08:41 01/24/2025 13:34:24 Gestation period, 16 weeks 50668911 Z3A.16 continue vitamin Urinary symptoms 5494561 08 R39.9 Nausea and vomiting 1693 1999 R11.2 Health Concerns Section Related Observation LastModified by Organization Detai ls LastModified Time None Recorded Concern Status LastModified by Organization Details LastModified Time None Recorded Advance Directives Directive None Recorded Payers Encounter Date Sequence Insurance Name Policy Number Policy Clinton Covered Member ID Clinton Member ID Guarantor Name 12/07/2024 1 [facility] - DOS ON OR AFTER 21 (MEDICAID REPLACEMENT - HMO) Amanda Kwong [id number] Amanda Kwong 12/07/2024 1 [facility] - [facility] ON OR AFTER 04/18/21 (MEDICAID REPLACEMENT - HMO) Amanda Kwong [id number] Amanda Kwong 01/04/2025 1 [facility] - DOS ON OR AFTER 21 (MEDICAID REPLACEMENT - HMO) Amanda Kwong [id number] Amanda Kwong 01/04/2025 1 [facility] - DOS ON OR AFTER 21 (MEDICAID REPLACEMENT - HMO) Amanda Kwong [id number] Amanda Kwong 01/24/2025 1 [facility] - DOS ON OR AFTER 21 (MEDICAID REPLACEMENT - HMO) Amanda Kwong [id number] Amanda Kwong Notes Date Note Type Note [...] partner and son. Patient works as a elementary school science teacher. Denies tobacco/EtOH/illic its. CONOR RESENDEZ MD [address], [place], [address], [facility] 12/07/2024 12:32:29 OBGyn Episode Ob Episode Information Episode Created Date Number of Fetuses Patient Bloodtype Patient rh Status Prepregnancy Weight lbs Domestic Partner Domestic Partner Phone Father Name Passenger Car Inspector Status 01/05/20 25 1 O Positive 311 Everardo Long OPEN Fetus Data First Name Last Name Admitted to NICU Weight (g) Sex Living Outcome Pediatric Complications Fetus ID Race Codes Race Delivery Type [id number] Problems Problem Notes Problem Name Start Date End Date Resolution Snomed Code Not e Mild intermittent asthma 603846030 albuterol PRN Obesity 053302516 34 week an tenatal testing Migraine 30888173 Cam Calculation Initial Cam Date Initial Exam [...] Date Ultra Sound Latest Days Gestation 0 [email or web address] 01/04/2025 07/15/20 25 0 Pre-estela Flowsheet Flowsheet Date 01/04/2025 Claros Score Blood Edema Fundus Height Fundus Units Glucose Ketones Leukocytes Nitrite Labor Signs Protein Cervic Dilation Cervic Effacement Cervic Station Type Weight in lbs Pre/Post Dialysis Refused Weight 311.615500900202 BP Diastolic BP Location Tested BP Systolic BP Type 81 L arm 125 sitting Fetus Heart Rate Present A 158 Fetus Movement Comments Patient presents to [facility]. Patient reports increasing nausea, still [...] labs. RTC 4 weeks for routine care. Flowsheet Date 01/24/2025 Claros Score Blood Edema Fundus Height Fundus Units Glucose Ketones Leukocytes Nitrite Labor Signs Protein Cervic Dilation Cervic Effacement Cervic Station neg trace Type Weight in lbs Pre/Post Dialysis Refused 313.144330624846 BP Diastolic BP Location Tested BP Systolic BP Type 75 113 Fetus Heart Rate Present Fetus Movement A Yes Comments Parient is having pain and f requency in urination, vaginal pain, discharge, swelling, nausea and vomiting and headaches. will lsend urine for culture, increase hydration, ok for excedrin tension and tylenol, willl add scop patch for dizziness, f/u anatomy scan. FHR by US Menstrual History Last Menstrual Date Menses Monthly [...] Domestic Partner Domestic Partner Phone Father Name Passenger Car Inspector Status 02/11/20 24 1 CLOSED Fetus Data First Name Last Name Admitted to NICU Weight (g) Sex Living Outcome Pediatric Complications Fetus ID Race Codes Race Delivery Type 3430.06 2704 M Full Term [id number] Vaginal Delivery Cam Calculation Initial Cam Date [...]
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
[2025-02-05] MEDS: TETANUS,DIPHTHERIA,AC PERTUSSIS ADULT (0.5 ML) BOOSTRIX IM (22:47)
[2025-02-05] MEDS: ACETAMINOPHEN 500 MG TABLET 1000 MG PO (22:49)
[2025-02-05 23:29] VITALS: BP 138/72; PULSE 88; RESP 18; O2SAT 100
== END 2025-02-05 23:30 | disposition home or self-care (01) ==
PROVIDERS: Emergency Provider Physician Assistant; PCP Internal Medicine
DX: O9A.212 Injury, poisoning and certain other consequences of external causes complicating pregnancy, second trimester (principal); S00.83XA Contusion of other part of head, initial encounter; O99.891 Other specified diseases and conditions complicating pregnancy; H61.22 Impacted cerumen, left ear; Z23 Encounter for immunization; O99.512 Diseases of the respiratory system complicating pregnancy, second trimester; J45.909 Unspecified asthma, uncomplicated; O99.212 Obesity complicating pregnancy, second trimester; E66.01 Morbid (severe) obesity due to excess calories; O99.612 Diseases of the digestive system complicating pregnancy, second trimester; K21.9 Gastro-esophageal reflux disease without esophagitis; O99.332 Smoking (tobacco) complicating pregnancy, second trimester; F17.290 Nicotine dependence, other tobacco product, uncomplicated; Z86.16 Personal history of COVID-19; Z3A.17 17 weeks gestation of pregnancy; W20.8XXA Other cause of strike by thrown, projected or falling object, initial encounter
CPT/HCPCS: 69210; 70486; 90471; 90715; 99284; A9270

== ENCOUNTER 2025-04-03 19:36 | Observation (INO) | payer OTHER, SELFPAY ==
--- OUTSIDE RECORDS SUMMARY | 2025-04-03 19:42 | XMS_ITS | Clinical Summary ---
Author Organization [facility] [address] [place] [address] Phone Care Team Providers Care Bond Writer Name Role Phone Reagan Farnsworth DO Primary Care Provider Allergies Active Allergy Reactions Criticality Noted Date Comments Sulfamethoxazole-Trimethoprim Swelling 2023 Sulfa Antibiotics Hives 07/26/2024 Medications No known medications Social History Tobacco Use Types Packs/Day Years [...] Comments Blood Pressure 121/66 11/14/2024 8:40 PM CHANGE OVER Pulse 98 11/14/2024 8:40 PM CHANGE OVER Temperature 36.8 C (98.2 F) 11/14/2024 8:40 PM CHANGE OVER Respiratory Rate 14 11/14/2024 8:40 PM CHANGE OVER Oxygen Saturation 100% 11/14/2024 8:40 PM CHANGE OVER Inhaled Oxygen Concentration - - Weight 137.4 kg (303 lb) 11/14/2024 7:51 PM CHANGE OVER Height 165.1 cm (5' 5) 11/14/2024 7:51 PM CHANGE OVER Body Mass Index 50.42 11/14/2024 7:51 PM CHANGE OVER Plan of Treatment Health Maintenance Due Date Last Done Comments Hepatitis C Virus (HCV) Screening 1998 TdaP Immunization 1998 Human Papillomavirus (HPV) Immunization (1 - 3-dose series) 2013 Pap Smear 2019 SARS-COV-2 Immunization (2023- season) 2024 Influenza Immunization (Seas on Ended) 2025 Respiratory Syncytial Virus (RSV) Immunization (Adult) (1 [...] on patient's age to complete this topic Insurance MEDICAID [employer] Care Teams Bond Writer Relationship Specialty Start Date End Date Reagan Farnsworth DO [address] [facility] [place] [place] [address] PCP - General Internal Medicine 07/26/24
--- OUTSIDE RECORDS SUMMARY | 2025-04-03 19:42 | XMS_ITS | Patient Health Record ---
Author Organization [facility] Address [address] [facility] [place] [address] Care Team Providers Care Carbon Furnace Operator Helper Name Role Phone [facility] Unavailable Willow vailable Allergies Allergen (clinical drug ingredient) Drug/Non Drug Allergy documented on EMR Reaction Allergy Type Onset Date Status SEPTA (uncoded) Unknown Allergy Acti ve sulfacetamide Sulfacetamide Sodium Unknown Drug Allergy Active Reason For Referral No Information Medications Medication SIG (Take, Route, Frequency, Duration) Notes Start Date End Date Status Albuterol Sulfate HFA 108 (90 Base) MCG/ACT 2 puff(s) inhaled prn for 30 day(s) Active NECON 10/11 BIPHASIC 0.5 MG-1 MG 1 TAB(S) ORALLY ONCE A DAY *Please review for potential replacement for e-prescription and drug interaction check* Active Adderall XR 25 MG 1 cap(s) orally once a day (in the morning) Active Problems Problem Type SNOMED Code ICD Code Onset Dates Problem Status W/U Status Risk Notes Problem Polycystic ovary syndrome (disorder) (316417465) Polycystic ovarian syndrome (256.4) Active confirmed Problem Dysmetabolic syndrome X (717795205) Dysmetabolic syndrome X (277.7) Active confirmed Plan Of Treatment No Information Insurance Providers Payer Name Payer Address Payer Phone Subscriber Number Group Number Insured Name Patient Relationship to Insured Coverage Start Date Coverage End Date [facility] [address] [place] [address] [phone] [id number] Tj Kwong Natural Child - Insured has Financial Responsibility Medicaid [address] [address] [place] [address] [phone] [id number] Amanda Kwong Self - patient is the insured Medical (General) History Medical History History ICD Code Dysmetabolic Syndrome X Obesity ADHD asthma PCP: Hilary Carter Surgical History Surgery Date(Month/Year) Tonsillectomy Adenoidectomy Nasal surgery Tubes in ears
[2025-04-03 20:06] VITALS: BP 99/34; PULSE 92
[2025-04-03 20:16] VITALS: BP 104/45; PULSE 89
[2025-04-03 20:17] LABS: Add Urine Microscopic? YES; Appearance Urine Clear (Clear); Bacteria Urine Rare /hpf; Bilirubin Urine Negative (Negative); Blood Urine Negative (Negative); Color Urine Dark Yellow (Yellow); Glucose Urine UA Negative (Negative); Ketones Urine Trace mg/dL (Negative); Leukocyte Esterase Ur Trace LEU/UL (Negative); Nitrate Urine Negative (Negative); Non Pathogenic Casts 0-2; Protein Urine Trace mg/dL (Negative); RBC Urine 0-2 /hpf (0-2); Specific Grav Ur 1.034 (1.001-1.035); Squamous Epithelial Cell Urine Occasional /hpf (Few); pH Urine 5.5 (5.0-9.0)
[2025-04-03 20:32] VITALS: BP 106/43; PULSE 91
--- NOTE | 2025-04-05 08:37 | PM.OBTRLD ---
OB - Triage/Final Diagnosis Visit Information Date of evaluation: 04/03/25 Reason for evaluation: other (abd pain) Comments/Additional reasons for admission: I have assessed the risk for this patient, Amanda wKong, and determined that she would benefit from observation care. Evaluation Laboratory results: Laboratory Tests 04/03/25 20:03 Urine Color Dark yellow Urine Appearance Clear Urine pH 5.5 Ur Specific [place] 1.034 Urine Protein Trace Urine Glucose (UA) Negative Urine Ketones Trace H Ur Blood (Man) Negative Urine Nitrate Negative Urine Bilirubin Negative Urine Urobilinogen 1.0 Leukocyte Esterase Rfl Trace H Urine RBC 0-2 Urine WBC 6-10 H Ur Squamous Epith Cells Occasional Urine Bacteria Rare Urine Casts 0-2
== END 2025-04-03 21:00 | disposition home or self-care (01) ==
PROVIDERS: Advanced Practice Midwife; Admitting Provider Obstetrics & Gynecology; PCP Internal Medicine; Visit Provider Obstetrics & Gynecology
DX: O26.892 Other specified pregnancy related conditions, second trimester (principal); R10.9 Unspecified abdominal pain; Z3A.25 25 weeks gestation of pregnancy
CPT/HCPCS: 81001; 87086; G0378; G0379

== ENCOUNTER 2025-05-10 20:47 | Observation (INO) | payer OTHER, SELFPAY ==
[2025-05-10] VITALS (44 sets, daily range): BP systolic 102–122; BP diastolic 45–77; PULSE 70–102; O2SAT 87–100; BMI 54.3
--- OUTSIDE RECORDS SUMMARY | 2025-05-10 20:53 | XMS_ITS | Clinical Summary ---
Author Organization [facility] [address] [place] [address] Phone Care Team Providers Care Cigarette Carton Sealer Name Role Phone Reagan Farnsworth DO Primary [...] Comments Blood Pressure 121/66 11/14/2024 8:40 PM MARKETING ANALYST Pulse 98 11/14/2024 8:40 PM MARKETING ANALYST Temperature 36.8 C (98.2 F) 11/14/2024 8:40 PM MARKETING ANALYST Respiratory Rate 14 11/14/2024 8:40 PM MARKETING ANALYST Oxygen Saturation 100% 11/14/2024 8:40 PM MARKETING ANALYST Inhaled Oxygen Concentration - - Weight 137.4 kg (303 lb) 11/14/2024 7:51 PM MARKETING ANALYST Height 165.1 cm (5' 5) 11/14/2024 7:51 PM MARKETING ANALYST Body Mass Index 50.42 11/14/2024 7:51 PM MARKETING ANALYST Plan of Treatment Health Maintenance Due Date Last Done Comments Hepatitis C Virus (HCV) Screening 1998 TdaP Immunization 1998 Human Papillomavirus (HPV) Immunization (1 - 3-dose series) 2013 Pap Smear 2019 SARS-COV-2 Immunization (2023- season) 2024 Influenza Immunization (#1) 2025 Respiratory Syncytial Virus (RSV) Immunization (Adult) [...] Insurance MEDICAID [employer] Care Teams Cigarette Carton Sealer Relationship Specialty Start Date End Date Reagan Farnsworth DO [address] [address] PCP - General Internal Medicine 07/26/24
--- OUTSIDE RECORDS SUMMARY | 2025-05-10 20:53 | XMS_ITS | Patient Health Record ---
[facility] Organization [facility] Address [address] [place] [place] [address] Care Team Providers Care Wire Web Worker Name Role Phone [facility] [...] 108 (90 Base) MCG/ACT 2 puff(s) inhaled prn; Duration: 30 day(s) Active NECON 10/11 BIPHASIC 0.5 MG-1 MG 1 TAB(S) ORALLY ONCE A DAY *Please review for potential replacement for e-prescription and drug interaction check* Active Adderall XR 25 MG 1 cap(s) orally once a day (in the morning) Active Problems Problem Type SNOMED Code ICD Code Onset Dates Problem Status W/U Status Risk Notes Problem Polycystic ovary syndrome (disorder) (681089426) Polycystic ovarian syndrome (256.4) Active confirmed Problem Dysmetabolic syndrome X (277.7) Active confirmed Plan Of Treatment No Information Insurance Providers Payer Name Payer Address Payer Phone Subscriber Number Group Number Insured Name Patient Relationship to Insured Coverage Start Date Coverage End Date [facility] [address] [place] [address] [id number] Tj Kwong Natural Child - Insured has Financial Responsibility Medicaid [address] [address] [place] [id number] Amanda Kwong Self - patient is the insured Medical (General) History Medical History History ICD Code Dysmetabolic Syndrome X Obesity ADHD asthma PCP: Hilary Carter Surgical History Surgery Date(Month/Year) Tonsillectomy Adenoidectomy Nasal surgery Tubes in ears
--- NOTE | 2025-05-10 23:06 | OBADM ---
This patient, Amanda Kwong, admitted to the OB room OB Post 113 for observation. Patient/family oriented to hospital policies and general routines including ID bracelet, bed and alarms, visiting hours, pain management, procedures, bathroom and other care routines, personal items, smoking policy, room service/diet, and visiting hours. Patient/Family are encouraged to report perceived risks to care and to ask questions if they do not understand what they are told or what they should do.
[2025-05-10 23:12] LABS: Add Urine Microscopic? YES; Appearance Urine Cloudy (Clear); Glucose Urine UA Trace mg/dL (Negative); Leukocyte Esterase Ur Trace LEU/UL (Negative); Nitrate Urine Negative (Negative); Non Pathogenic Casts 0-2; Specific Grav Ur 1.006 (1.001-1.035)
[2025-05-10] MEDS: ACETAMINOPHEN 500 MG TABLET 1000 MG PO (23:50)
--- NOTE | 2025-05-13 02:01 | P.PNOB_ITS ---
OB - Triage/Final Diagnosis Visit Information Date of evaluation: 05/10/25 Reason for evaluation: other (abd pain) Comments/Additional reasons for admission: I have assessed the risk for this patient, Amanda Kwong, and determined that she would benefit from observation care. Evaluation Laboratory results: Laboratory Tests 05/10/25 23:03 Urine Color Yellow Urine Appearance Cloudy H Urine pH 6.5 Ur Specific [place] 1.006 Urine Protein Negative Urine Glucose (UA) Trace H Urine Ketones Negative Ur Blood (Man) Negative Urine Nitrate Negative Urine Bilirubin Negative Urine Urobilinogen 0.2 Leukocyte Esterase Rfl Trace H Urine RBC 0-2 Urine WBC 0-5 Ur Squamous Epith Cells Occasional Urine Bacteria None seen Urine Casts 0-2
== END 2025-05-11 00:13 | disposition home or self-care (01) ==
PROVIDERS: Advanced Practice Midwife; Admitting Provider Obstetrics & Gynecology; PCP Internal Medicine; Visit Provider Obstetrics & Gynecology
DX: O26.893 Other specified pregnancy related conditions, third trimester (principal); R10.9 Unspecified abdominal pain; Z3A.30 30 weeks gestation of pregnancy
CPT/HCPCS: 81001; A9270; G0378; G0379

== ENCOUNTER 2025-06-09 12:51 | Outpatient (CLI) | payer OTHER, SELFPAY ==
[2025-06-09 13:15] VITALS: BP 131/71; PULSE 88
[2025-06-09 13:30] VITALS: BP 125/74; PULSE 87
[2025-06-09 14:00] VITALS: BP 131/71; PULSE 85
--- NOTE | 2025-06-09 14:11 | PC.NURSE ---
SVE perfomed by Lo Lainez RN. No leaking noted. Cervix closed, thick, and high.
[2025-06-09 14:19] LABS: OBXCEM ROM Plus Negative (Negative)
== END 2025-06-09 14:05 | disposition home or self-care (01) ==
LOC: ANHOBOP 13:07 → ANHOBPP 13:11
PROVIDERS: PCP Internal Medicine; Visit Provider Obstetrics & Gynecology
DX: O42.90 Premature rupture of membranes, unspecified as to length of time between rupture and onset of labor, unspecified weeks of gestation (principal); Z3A.00 Weeks of gestation of pregnancy not specified
CPT/HCPCS: 59025; 84112; 99199

== ENCOUNTER 2025-06-27 10:40 | Outpatient (RCR) | payer OTHER, SELFPAY ==
[2025-06-06 11:04] LABS: Hematocrit 34.1 % (37.0-47.0); Hemoglobin 11.6 g/dL (12.0-15.0); Immature Granulocyte Percent A 0.6 % (0-0.5); Lymphocytes Absolute Auto 1.52 K/mm3 (0.9-3.2); Mean Corpuscular HGB Conc 34.0 g/dl (32-36); Mean Corpuscular Hemoglobin 31.6 pg (26-34); Mean Corpuscular Volume 92.9 fl (80-100); Nucleated Red Blood Cells Absolute Auto 0.000 K/mm3 (0.0-0.012); Nucleated Red Blood Cells Perc 0.0 % (0.0-0.2); Platelet Count Result 299 k/mm3 (150-375); Red Blood Count 3.67 M/mm3 (4.2-5.4); White Blood Count 9.0 K/mm3 (4.5-10.0)
[2025-06-06 11:17] VITALS: BP 122/63; PULSE 93; BMI 56.5
[2025-06-06 11:18] VITALS: BP 120/71; PULSE 96
[2025-06-06 11:27] LABS: Alanine Aminotransferase 40 U/L (6-35); Albumin Level 3.2 g/dL (3.5-5.1); Alkaline Phosphatase 150 U/L (38-126); Anion Gap 6 mmol/L (4-12); Aspartate Amino Transferase 27 U/L (14-36); Bilirubin,Total 0.2 mg/dL (0.2-1.3); Blood Urea Nitrogen 10 mg/dL (7-17); Calcium 9.2 mg/dL (8.4-10.2); Carbon Dioxide 21 mmol/L (22-30); Chloride 106 mmol/L (98-107); Estimated CRCL calculation 166 ml/min; Estimated Glomerular Filt Rate > 60; Glucose 138 mg/dL (65-110); Potassium 3.9 mmol/L (3.4-5.0); Sodium 133 mmol/L (137-145); Total Protein 6.4 g/dL (6.3-8.2); Uric Acid 4.0 mg/dL (2.5-7.5)
[2025-06-06 11:59] LABS: Appearance Urine Clear (Clear)
[2025-06-06 12:00] LABS: Glucose Urine UA Negative (Negative); Nitrate Urine Negative (Negative); Specific Grav Ur >= 1.030 (1.001-1.035)
[2025-06-06 12:01] LABS: Add Urine Microscopic? YES; Leukocyte Esterase Ur Negative LEU/UL (Negative)
[2025-06-06 12:25] LABS: Need Manual Microscopic Reviewed
--- NOTE | 2025-06-06 12:37 | PC.NURSE ---
1231- RN notified MD of NST, BPP and lab results. RN notified MD of urine not being back yet. RN notified MD of VS. MD gave orders to d/c to home.
[2025-06-06 12:38] VITALS: TEMP 36.1
[2025-06-06 16:26] LABS: Total Protein Urine Random 15 mg/dL; Ur Ttl Prot Creatinine Ratio 0.05 mg/mg (0-0.20)
[2025-06-13 11:20] VITALS: BP 107/68; PULSE 97
[2025-06-20 12:02] VITALS: BP 121/74
--- NOTE | ~2025-06-27 | US_ITS ---
EXAM: US OB BPP wo non-stress - 06/20/2025 11:19 CDT History: 25 years old Female with Elevated BMI Comparison: None available. Technique Real time transabdominal obstetric sonographic imaging was performed. Findings A single live intrauterine gestation is identified. Lie: longitudinal Presentation: vertex heart rate: 145 beats per minute SHAUNA: 9.8 cm, which is between the 7.9 cm which corresponds to 5 th and 24.9 cm which corresponds to 95 th percentiles. Biophysical profile: breathing movement: 2 Gross body movement: 2 tone: 2 Qualitative AFV: 2 Total BPP score: 8 of 8. Impression Total biophysical profile score is 8 out of 8. Reviewed, dictated and finalized at location N. Impression Total biophysical profile score is 8 out of 8.
--- NOTE | ~2025-06-27 | US_ITS ---
EXAMINATION: US OB limited w BPP DATE: 06/06/2025 14:28 CDT INDICATION: Evaluate well-being TECHNIQUE: Real-time transabdominal obstetric ultrasound. FINDINGS: Comparison to ultrasound dated 01/16/2025 There is a single living fetus in vertex presentation. The placenta is fundal without placenta previa. cardiac activity and movement is noted with a heart rate of 143 beats per minute. Biophysical profile: breathin of 2 movement: 2 of 2 tone: 2 of 2 Amniotic flud pocket: 2 of 2 Total score: 8 of 8 SHAUNA is normal measuring 10.3 cm. IMPRESSION: 1. Single living intrauterine in vertex presentation. 2: Total biophysical profile score of 8/8. Reviewed, dictated and finalized at location A.
--- NOTE | ~2025-06-27 | US_ITS ---
EXAMINATION: US OB BPP wo non-stress DATE: 06/13/2025 12:14 INDICATION: Elevated BMI. Third trimester . TECHNIQUE: Real-time pelvic ultrasound was performed. The interpreting radiologist was not present for the study. COMPARISON: None. FINDINGS: There is a single living fetus in vertex presentation. The placenta is fundal and not low-lying. heart rate is 135 beats per minute (bpm). The abdomen demonstrates no dilated loops of small or large bowel. There is no free intraperitoneal gas. Amniotic fluid index of 14.2 cm (5th%-95%: 7.9-24.9 cm at 35 weeks estimated gestational age). Biophysical profile performed by the technologist: breathing (30 sec sustained breathing in 30 minutes): 2 out of 2 movement (3 gross body movements in 30 minutes): 2 out of 2 tone (one episode of lumodxu-jutxuexbd-gpzhlec limb movement): 2 out of 2 Amniotic fluid pocket (2 cm): 2 out of 2 Total score: 8 out of 8 IMPRESSION: 1. Single living fetus in vertex presentation with heart rate of 135 bpm. 2. Biophysical profile 8 out of 8. 3. Normal amniotic fluid index of 14.2 cm. Reviewed, dictated and finalized at location A.
--- NOTE | ~2025-06-27 | US_ITS ---
EXAMINATION: US OB BPP wo non-stress DATE: 06/27/2025 12:18 CDT INDICATION: Elevated BMI TECHNIQUE: Real-time transabdominal obstetric ultrasound. FINDINGS: There is a single living fetus in vertex presentation. The placenta is posterior without placenta previa. cardiac activity and movement is noted with a heart rate of 136 beats per minute. Biophysical profile: breathin of 2 movement: 2 of 2 tone: 2 of 2 Amniotic flud pocket: 2 of 2 Total score: 8 of 8 SHAUNA equals 14.51 cm IMPRESSION: 1. Single living intrauterine in vertex presentation. 2: Total biophysical profile score of 8 out of 8. Reviewed, dictated and finalized at location Q.
[2025-06-27 11:17] VITALS: BP 121/74; BP 146/87; PULSE 97
== END 2025-07-01 11:22 | disposition other institution (70) ==
LOC: ANHOBOP 10:40
PROVIDERS: PCP Internal Medicine; Visit Provider Obstetrics & Gynecology
DX: Z36.89 Encounter for other specified antenatal screening (principal); R51.9 Headache, unspecified
CPT/HCPCS: 36415; 59025; 76815; 76819; 80053; 81001; 82570; 84156; 84550; 85025

== ENCOUNTER 2025-06-28 12:18 | Inpatient (IN) | payer OTHER, SELFPAY ==
[2025-06-28] VITALS (18 sets, daily range): BP systolic 127–161; BP diastolic 63–99; PULSE 84–97; BMI 62.1
--- OUTSIDE RECORDS SUMMARY | 2025-06-28 13:07 | XMS_ITS | Patient Health Record ---
Author Organization [facility] Address [address] [place] [address] [address] [place] [address] Care Team Providers Care Real Time Analyst Name Role Phone [facility]EREM[facility] Unavailable [phone] Reason For Referral No Information Medications Medication SIG (Take, Route, Frequency, Duration) Notes Start Date End Date Status EpiPen 2-Kareem 0.3 MG/0.3ML Solution Auto-injector Injection 01/21/2018 Active Lexapro *please review f or potential update for e-prescription and drug interaction check* 01/21/2018 Active Augmentin 875-125 MG Tablet Oral *please review for potential update for e-prescription and drug interaction check* 01/21/2018 Active Omeprazole 40 MG Capsule Delayed Release Oral 01/21/2018 Active Tessalon Perles 100 MG Capsule Oral 01/21/2018 Active Nystatin 927824 UNIT/GM Cream External 01/21/2018 Active Omeprazole 20 MG Capsule Delayed Release Oral 01/21/2018 Active Zantac *please review f or potential update for e-prescription and drug interaction check* 01/21/2018 Active Social History Social History Additional Details Category Social Info Options Details Migrated Social History Migrated Social History Smoking Status: Formerly 06/10/2016 Plan Of Treatment No Information Insurance Providers Payer Name Payer Address Payer Phone Subscriber Number Group Number Insured Name Patient Relationship to Insured Coverage Start Date Coverage End Date Medicaid [address] [address] [place] [id number] FIDELIA COTTO Self - patient is the insured Medical (General) History Surgical History Surgery Date(Month/Year) Remove tonsils and adenoids ([id number]) 06/19
--- OUTSIDE RECORDS SUMMARY | 2025-06-28 13:07 | XMS_ITS | Patient Health Record ---
Author Organization [facility] Address [address] [place] [address] Care Team Providers Care Powder Monkey Name Role Phone [facility] [...] Albuterol Sulfate HFA 108 (90 Base) MCG/ACT Aerosol Solution 2 puff(s) inhaled prn; Duration: 30 day(s) Active NECON 10/11 BIPHASIC 0.5 MG-1 MG TABLET 1 TAB(S) ORALLY ONCE A DAY *Please review for potential replacement for e-prescription and drug interaction check* Active Adderall XR 25 MG Capsule Extended Release 24 Hour 1 cap(s) orally once a day (in the morning) Active Social History Social History Social History Social Info Question Answer Notes Marital Status: Single Alcohol status: does not drink alcohol Additional Details Category Social Info Options Details Social History occupation Student Problems Problem Type SNOMED Code ICD Code Onset Dates Problem Status W/U Status Risk Notes Problem Polycystic ovary syndrome (disorder) (387911877) Polycystic ovarian syndrome (256.4) Active confirmed Problem Dysmetabolic syndrome X (112771234) Dysmetabolic syndrome X (277.7) Active confirmed Plan Of Treatment No Information Insurance Providers Payer Name Payer Address Payer Phone Subscriber Number Group Number Insured Name Patient Relationship to Insured Coverage Start Date Coverage End Date [facility] [address] [place] [address] [phone] [id number] Tj Kwong Natural Child - Insured has Financial Responsibility Medicaid [address] [address] [place] [address] [phone] [id number] Amanda Kwong Self - patient is the insured Medical (General) History Medical History History ICD Code Dysmetabolic Syndrome X Obesity ADHD asthma PCP: Hilary Carter Surgical History Surgery Date(Month/Year) Tonsillectomy Adenoidectomy Nasal surgery Tubes in ears
--- OUTSIDE RECORDS SUMMARY | 2025-06-28 13:07 | XMS_ITS | Clinical Summary ---
Author Organization [facility] [address] [place] [address] Phone Care Team Providers Care Riding Coach Name Role Phone Reagan Farnsworth DO Primary [...] Comments Blood Pressure 121/66 11/14/2024 8:40 PM KIT ASSEMBLER Pulse 98 11/14/2024 8:40 PM KIT ASSEMBLER Temperature 36.8 C (98.2 F) 11/14/2024 8:40 PM KIT ASSEMBLER Respiratory Rate 14 11/14/2024 8:40 PM KIT ASSEMBLER Oxygen Saturation 100% 11/14/2024 8:40 PM KIT ASSEMBLER Inhaled Oxygen Concentration - - Weight 137.4 kg (303 lb) 11/14/2024 7:51 PM KIT ASSEMBLER Height 165.1 cm (5' 5) 11/14/2024 7:51 PM KIT ASSEMBLER Body Mass Index 50.42 11/14/2024 7:51 PM KIT ASSEMBLER Plan of Treatment Health Maintenance Due Date Last Done Comments Hepatitis C Virus (HCV) Screening 1998 TdaP Immunization 1998 Pap Smear 2019 Human Papillomavirus (HPV) Immunization (1 - 3-dose SCDM series) 2025 Influenza Immunization (#1) 2025 SARS-COV-2 Immunization ( season) 2025 Respiratory Syncytial Virus (RSV) Immunization (Adult) [...] Insurance MEDICAID [employer] Care Teams Riding Coach Relationship Specialty Start Date End Date Reagan Farnsworth DO [facility] [address] PCP - General Internal Medicine 07/26/24
--- OUTSIDE RECORDS SUMMARY | 2025-06-28 13:07 | XMS_ITS | Clinical Summary ---
Author Organization [facility] Address [address] [place] [address] Care Team Providers Care Local Government Legislator Name Role Phone Velvet López NP Primary Care Provider + [phone] Allergies Active Allergy Reactions Criticality Noted Date [...] vomiting 10 tablet 5 Active Active Problems Estimated Date of Delivery Comme nts Yes 07/15/2025 No known active problems Encounters Date Type Department Care Team Description 06/11/2025 6:30 PM CDT Office Visit [facility] at [address] [address] Vivienne Uriarte NP Viral URI (Primary Dx); Sore throat from Last 3 Months Social History Tobacco [...] you feel afraid or unsafe? Denies 11/18/2024 Estimated Date of Delivery Comme nts Yes 07/15/2025 Sex and Gender Information Value Date Recorded [...] Sign Reading Time Taken Comments Blood Pressure 124/80 06/11/2025 6:28 PM CDT Pulse 111 06/11/2025 6:28 PM CDT Temperature 37.2 C (98.9 F) 06/11/2025 6:28 PM CDT Respiratory Rate 18 06/11/2025 6:28 PM CDT Oxygen Saturation 100% 06/11/2025 6:28 PM CDT Inhaled Oxygen Concentration - - Weight 137.4 kg (303 lb) 06/11/2025 6:28 PM CDT Height 165.1 cm (5' 5) 06/11/2025 6:28 PM CDT Body Mass Index 50.42 06/11/2025 6:28 PM CDT Plan of Treatment Health Maintenance Due Date Last Done Comments Cervical Cancer Screening 1998 Depression Screening 1998 Hepatitis C Screening 1998 Varicella Vaccines (2 of 2 - 2-dose childhood series) 2002 05/14/1999 Regular Well Visit/Exam 18-64 2016 Pneumococcal vaccine <65 (1 of 2 - PCV) 2017 HPV Vaccines (1 - 3-dose SCD M series) 2025 Influenza Vaccine (#1) 2025 DTaP/Tdap/Td Vaccine (6 - Td or Tdap) 02/05/2035 02/05/2025, 04/08/1999, 1998, Additional history exists Hepatitis B Screening Completed 04/08/1999 , 1998, 1998 Procedures Procedure Name Priority Date/Time Associated Diagnosis Comments POC INFLUENZA A/B, COVID-19 ANTIGEN Routine 06/11/2025 7:12 PM CDT Sore throat from Last 3 Months Results * POC Influenza A/B, COVID-19 antigen (06/11/2025 7:12 PM CDT) Pathologist [facility] Influenza A Ag, POC Negative Negative [facility] Influenza B Ag, POC Negative Negative [facility] COVID-19 Ag POC Presumptive Negative Presumptive Negative, Invalid [facility] Nasal 06/11/2025 7:12 PM CDT Vivienne Uriarte NP POINT OF CARE TEST OR DERABLES Final Result [address] [address], [facility] from Last [address] [address] [facility] Care Teams Local Government Legislator Relationship Specialty Start Date End Date Velvet López NP PCP - General 08/11/19
--- NOTE | 2025-06-28 13:45 | LDADM ---
This patient, Amanda Kwong, was admitted to Labor/Delivery/Recovery 107 on 06/28/25 at 12:18. Plans for labor, pain management and were discussed with patient. Patient/family oriented to hospital policies and general routines including ID bracelet, bed and alarms, visiting hours, pain management, procedures, bathroom and other care routines, personal items, smoking policy, room service/diet and guest tray routines, security routines, and visiting hours. Patient/Family are encouraged to report perceived risks to care and to ask questions if they do not understand what they are told or what they should do. See OBIX for further documentation.
[2025-06-28 13:56] LABS: Hematocrit 36.7 % (37.0-47.0); Hemoglobin 12.2 g/dL (12.0-15.0); Immature Granulocyte Percent A 0.4 % (0-0.5); Lymphocytes Absolute Auto 1.61 K/mm3 (0.9-3.2); Mean Corpuscular HGB Conc 33.2 g/dl (32-36); Mean Corpuscular Hemoglobin 31.1 pg (26-34); Mean Corpuscular Volume 93.6 fl (80-100); Nucleated Red Blood Cells Absolute Auto 0.000 K/mm3 (0.0-0.012); Nucleated Red Blood Cells Perc 0.0 % (0.0-0.2); Platelet Count Result 322 k/mm3 (150-375); Red Blood Count 3.92 M/mm3 (4.2-5.4); White Blood Count 8.5 K/mm3 (4.5-10.0)
[2025-06-28 14:11] LABS: Alanine Aminotransferase 26 U/L (6-35); Albumin Level 3.4 g/dL (3.5-5.1); Alkaline Phosphatase 208 U/L (38-126); Anion Gap 5 mmol/L (4-12); Aspartate Amino Transferase 25 U/L (14-36); Bilirubin,Total 0.3 mg/dL (0.2-1.3); Blood Urea Nitrogen 9 mg/dL (7-17); Calcium 9.1 mg/dL (8.4-10.2); Carbon Dioxide 22 mmol/L (22-30); Chloride 107 mmol/L (98-107); Estimated Glomerular Filt Rate > 60; Glucose 74 mg/dL (65-110); Potassium 3.9 mmol/L (3.4-5.0); Sodium 134 mmol/L (137-145); Total Protein 6.8 g/dL (6.3-8.2); Uric Acid 4.3 mg/dL (2.5-7.5)
[2025-06-28 14:24] LABS: Total Protein Urine Random 13 mg/dL; Ur Ttl Prot Creatinine Ratio 0.10 mg/mg (0-0.20)
[2025-06-28 14:41] LABS: Syphilis IgG/IgM Antibody Non-Reactive (Nonreactive)
[2025-06-28] MEDS: AMPICILLIN SODIUM 2 GM in SODIUM CHLORIDE 0.9% IV 100 ML 200 ML IVPB (16:01)
[2025-06-28] MEDS: LACTATED RINGERS 1,000 ML 125 ML IV CONT (16:01)
--- NOTE | 2025-06-28 17:35 | WPDOBADMIT ---
Obstetrics - Admit Note Admission Note: record reviewed. No pertinent additions to the history and/or any subsequent changes in the physical findings that are not consistent with the expected course of the were found. Additions to the history and/or subsequent changes in the physical findings follow. Admit for IOL, gestational HTN, cervix /- plan cytotec.
[2025-06-28] MEDS: AMPICILLIN SODIUM 1 GM in SODIUM CHLORIDE 0.9% IV 50 ML 100 ML IVPB (20:31)
--- NOTE | 2025-06-28 20:52 | WPDANESEPP ---
Anes - Eval Pre Procedure Procedure: Labor epidural Date/Time: 06/28/25 20:52 Surgeon: Chris Preop Diagnosis: Abdominal pain with contractions Pre Op Diagnosis: IOL Patient Data Age: 25 Gender: F Height: 1.6 m Weight: 159 kg Last Vital Signs Pulse 94 06/28/25 18:02 BP 127/69 06/28/25 18:02 O2 Del Method Room Air 06/28/25 13:00 Allergies Allergy/AdvReac Type Severity Reaction Status Date / Time venom-wasp Allergy Intermediate Anaphylaxis Verified 02/05/25 22:07 Sulfa (Sulfonamide Allergy Mild Rash Verified 02/05/25 22:07 Antibiotics) sulfamethoxazole (From Allergy Mild Rash Verified 02/05/25 22:07 Septra) trimethoprim (From Junra) Allergy Mild Rash Verified 02/05/25 22:07 Home Medications ?Medication ?Instructions ?Recorded ?Confirmed ?Type albuterol sulfate 90 mcg/actuation 2 puff inhalation QID PRN 02/12/23 06/17/25 Rx aerosol inhaler shortness of breath or wheezing #6.7 grams epinephrine 0.3 mg/0.3 mL 0.3 mg (0.3 mL) IM ONCE #2 ea 07/29/24 06/17/25 Rx injection, auto-injector vits no.133-ferrous tablet PO 05/10/25 History fumarate 28 mg-folic acid 800 mcg tablet () riboflavin (vitamin B2) 100 mg 100 mg PO DAILY 05/10/25 06/17/25 History tablet (Vitamin B-2) famotidine 20 mg tablet See Rx Instructions .Route 05/25/25 06/17/25 Rx .COMPLEX #60 tabs Laboratory Tests 06/28/25 06/28/25 06/28/25 13:02 13:02 13:35 WBC 8.5 K/mm3 (4.5-10.0) RBC 3.92 L M/mm3 (4.2-5.4) Hgb 12.2 g/dL (12.0-15.0) Hct 36.7 L % (37.0-47.0) MCV 93.6 fl (80-100) MCH 31.1 pg (26-34) MCHC 33.2 g/dl (32-36) RDW 13.1 % (11.5-14.5) Plt Count 322 k/mm3 (150-375) MPV 9.5 fl (7.4-10.4) Immature Gran % (Auto) 0.4 % (0-0.5) Neut % (Auto) 72.4 % (45.5-73.1) Lymph % (Auto) 19.0 % (18.3-44.2) [place] % (Auto) 7.3 % (2.6-8.5) Eos % (Auto) 0.8 % (0-4.4) Baso % (Auto) 0.1 L % (0.2-1.2) Lymph # (Auto) 1.61 K/mm3 (0.9-3.2) [place] # (Auto) 0.6 K/mm3 (0.1-0.6) Eos # (Auto) 0.1 K/mm3 (0-0.3) Baso # (Auto) 0.0 K/mm3 (0.0-0.1) Abs Immat Gran (auto) 0.03 K/mm3 (0.00-0.031) Absolute Neuts (auto) 6.1 K/mm3 (1.3-6.7) Absolute Nucleated RBC 0.000 K/mm3 (0.0-0.012) Nucleated RBC % 0.0 % (0.0-0.2) Sodium 134 L mmol/L (137-145) Potassium 3.9 mmol/L (3.4-5.0) Chloride 107 mmol/L (98-107) Carbon Dioxide 22 mmol/L (22-30) Anion Gap 5 mmol/L (4-12) BUN 9 mg/dL (7-17) Creatinine 0.75 mg/dL (0.7-1.0) Estim Creat Clear Calc Not Reportable Estimated GFR > 60 (59 - ) Glucose 74 mg/dL (65-110) Uric Acid Cancelled 4.3 mg/dL (2.5-7.5) Calcium 9.1 mg/dL (8.4-10.2) Total Bilirubin 0.3 mg/dL (0.2-1.3) AST 25 U/L (14-36) ALT 26 U/L (6-35) Alkaline Phosphatase 208 H U/L (38-126) Total Protein 6.8 g/dL (6.3-8.2) Albumin 3.4 L g/dL (3.5-5.1) U Random Total Protein 13 mg/dL Urine Creatinine 127.0 mg/dL Protein/Creat Ratio 2 0.10 mg/mg (0-0.20) Syphilis IgG/IgM Ab Non-reactive (Nonreactive) Blood Type O Positive Antibody Screen Negative : gestational age HCG: positive Patient hx anesthesia problems: none Family hx anesthesia problems: none Results Review: All pre-operative results and documents have been reviewed as part of the pre-operative evaluation. [facility] Past Medical History Medical History Asthma IBS (irritable bowel syndrome) Pharyngitis Blurred vision Postconcussive syndrome GERD (gastroesophageal reflux disease) Asthma COVID-19 Binge eating disorder Nausea and vomiting Establishing care with new doctor, encounter for Migraine headache Morbid obesity due to excess calories Surgical History Surgical History History of placement of ear tubes S/P tonsillectomy and adenoidectomy Family History Family History Father Barretts syndrome Mother Asthma Diabetes mellitus Depression Sibling Hypertension Grandparent Diabetes mellitus Other Asthma Social History Social History Smoking status: Never smoker Tobacco type: e-cigarettes/vaping Additional smoking assessment comments: Has been using Vape devices for 3 Years Alcohol intake: current Drinks per week: 1 Alcohol use details: Social Drinker Substance use: current Substance use type: marijuana Other substance usage details: twice a week Do You Feel Safe in your Home?: Yes Lack of Transportation: No Lack of Food: Never True Current Housing: I Have Housing Concerned About Future Housing: No Difficulty Paying Gas/Electric Bills: YES Difficulty Paying for Meds: No Currently Unemployed: No Education: Don't Know Difficulty w/ Childcare or Family Care: No Living arrangements: with family Occupation/Education: occupation Additional occupation/education comments: [employer] Gender identity (if verbalized by the patient): Female Spiritual care concerns: No Exam Day of Procedure 06/28/25 20:52 Patient weight: super morbidly obese
[2025-06-28] MEDS: ACETAMINOPHEN 500 MG TABLET 1000 MG PO (22:04)
[2025-06-29] VITALS (157 sets, daily range): BP systolic 117–156; BP diastolic 65–109; PULSE 71–102; RESP 18; TEMP 36.3–36.8; O2SAT 97–100
[2025-06-29] MEDS: AMPICILLIN SODIUM 1 GM in SODIUM CHLORIDE 0.9% IV 50 ML 100 ML IVPB ×3 (00:22→12:17)
[2025-06-29] MEDS: FAMOTIDINE 20 MG/2 ML VIAL IV PUSH (05:27)
--- NOTE | 2025-06-29 07:42 | PM.OBPNLAB ---
Pain Control Date/time seen: 06/29/25 07:42 was advised overnight pt declined epidural, pitocin, arom, had a long discussion this am about autonomy and also IOL for gestational HTN. discussed risks and benefits of no interventions could cause harm, or maternal . also offered transfer to higher risk facility if pt decides. pt discussed with and will plan to stay here and accept appropriate interventions. FHR category 1 contractions q3-4 minutes
--- NOTE | 2025-06-29 08:40 | PM.OBPNLAB ---
Pain Control Date/time seen: 06/29/25 08:40 Comments: SVE /-2 AROM large amount of clear odorless fluid, IUPC and FSE placed w/o difficulty
[2025-06-29] MEDS: LACTATED RINGERS 1,000 ML 125 ML IV CONT (09:34)
[2025-06-29] MEDS: OXYTOCIN 30 UNITS/NS 500 ML 30 UNITS/500 ML BAG IV CONT (10:54)
[2025-06-29] MEDS: SODIUM CHLORIDE 0.9% IV 300 ML 600 ML I-UTERINE (14:19)
[2025-06-29] MEDS: OXYTOCIN 30 UNITS/NS 500 ML 30 UNITS/500 ML BAG 999 UNITS IV CONT (15:35)
--- NOTE | 2025-06-29 15:42 | PM.OBPRVD ---
OB - Vaginal Delivery Note Procedure Delivery date: 06/29/25 Events: Gestational Hypertension Induction method: AROM, Per Misoprostol Protocol and Per Pitocin Protocol Delivery augmentation: Rupture of Membranes and Pitocin Delivery monitor: Internal FHT and Internal Uterine Route of delivery: Laceration Description: None Specimen: No Quantitative Blood Loss (ml): 100 Anesthesia type: Epidural Disposition: Floor Complications: None Baby Date of : 06/29/25 Time of : 15:33 Gestational Age by Date: 37 presentation: vertex position: Right Occiput Anterior Placenta delivery description: Spontaneous and Expressed Cord Vessel Description: 3 Vessels and Delayed Cord Clamping score one minute: 9 score five minutes: 9
[2025-06-29] MEDS: OXYTOCIN 30 UNITS/NS 500 ML 30 UNITS/500 ML BAG 125 UNITS IV CONT (16:08)
[2025-06-29] MEDS: IBUPROFEN 600 MG TABLET PO (19:09)
[2025-06-29] MEDS: BENZOCAINE 20% AER SPR (*SP) 56 GM CAN 1 SPRAY TOPICAL (19:10)
[2025-06-29] MEDS: WITCH HAZEL 40 PADS 1 PAD TOPICAL (19:10)
--- NOTE | 2025-06-29 20:05 | PC.NURSE ---
Patient transferred to post room #281 via wheelchair. Support person present. Oriented to unit, room, information board, rooming in, admission packet and security measures. Patient verbalizes understanding.
[2025-06-29] MEDS: ACETAMINOPHEN 325 MG TABLET 650 MG PO (20:20)
[2025-06-30] MEDS: IBUPROFEN 600 MG TABLET PO ×2 (03:45→13:10)
[2025-06-30 05:00] VITALS: BP 147/91; PULSE 91; RESP 18; TEMP 37; O2SAT 100; O2SAT 99
[2025-06-30 07:23] VITALS: BP 141/88; PULSE 100; RESP 16; TEMP 37; O2SAT 100
[2025-06-30] MEDS: MULTIVIT/MIN/PREN/FOL AC/IRON TABLET 1 TAB PO (08:43)
[2025-06-30] MEDS: ACETAMINOPHEN 325 MG TABLET 650 MG PO (08:43)
[2025-06-30] MEDS: DOCUSATE SODIUM 100 MG CAPSULE PO (08:44)
--- NOTE | 2025-06-30 10:47 | P.PNOB_ITS ---
OB - PN: Subj Subjective Date/time seen: 06/30/25 10:47 Interval history: PPD#1 s/p c/b gestational hypertension Mild back pain and uterine cramping Voiding without issue Baby level 2 nursery, receiving abx for elevated WBC OB - PN: Obj Data Labs 06/28/25 13:02 06/28/25 13:02 OB - PN A/P Assessment and Plan (1) (spontaneous vaginal delivery): Code(s): O80 - Encounter for full-term uncomplicated delivery Status: Acute (2) Gestational hypertension: Code(s): O13.9 - Gestational [-induced] hypertension without significant proteinuria, unspecified trimester Status: Acute Assessment and Plan: - asymptomatic - mild range BP - consider maintenance antihypertensives if BP remains in 150s/90s Plan day: 1 Plan: routine care Time Spent With Patient Time: Total time spent is greater than 50% in coordination of care (as documented) at patient's floor/unit and/or counseling patient: Review of Systems 2 Review of Systems: All systems reviewed & are unremarkable except as noted in HPI and below Exam 2 Const: General: comfortable and no acute distress O rientation/consciousness: patient oriented x3 Resp: Effort & Inspection: normal respiratory effort
[2025-06-30 11:05] LABS: Hematocrit 33.1 % (37.0-47.0); Hemoglobin 10.9 g/dL (12.0-15.0)
--- NOTE | 2025-06-30 12:40 | PC.NURSE ---
Patient called out for assistance. When I entered the room, baby had a brief gagging episode with no spit up. Mom was holding him upright and patted his back and he seemed to recover. However, as mom and I spoke, baby began to turn a dusky color and appeared to be apneic. He was quickly placed in the crib and taken to the nursery. He began to fuss when his sternum was rubbed and he was pink again before we had him hooked up to the monitor. The primary RN called the forgeman helper for further assessment. Mom is going to call out when she wants to discuss pumping.
--- NOTE | 2025-06-30 15:32 | P.DS_ITS ---
DS: Admitting Diagnosis Discharge Date 06/30/25 Admitting Diagnosis gestational hypertension, induction of labor OB - DS: Summary OB Procedures : PIH Mgmt OB Procedures Intrapartum: Spontaneous Vag Delivery OB Procedures: : None Peripartum Data Laceration Description: None Time Spent with Patient Time attestation: Total time spent providing and/or coordinating discharge services: DS: Data Data Completed and Pending Labs on day of discharge: Labs from last 24 hours 06/30/25 11:00 Hgb 10.9 L Hct 33.1 L Discharge Plan Discharge Attending physician on discharge: Tad Bedoya Discharging Clinician: Tad Bedoya Patient Disposition: Home Activity: may shower, as tolerated and pelvic rest Diet: as tolerated Discharge Instructions: FEEDING PLAN: You are exclusively pumping at discharge. It is important to pump regularly and consistently to help initiate your milk supply. Regular milk removal is necessary for continued milk production. You need to pump at least 8 times every 24 hours. You can use hands on pumping to get better results with pumping and to encourage your breasts to produce more milk. Hands on pumping instructions: 1.? Massage your breasts before applying the breast pump. 2.? Pump both breasts at once. Use your hands to massage and compress while you pump. 3.? Stop pumping when the milk stops flowing 4.? Massage your breasts again 5.? End the pumping session by pumping or hand expressing one breast at a time while massaging and compressing your breast. Go back and forth between each breast until the milk stops flowing. 6.? Allow 25 minutes to complete this routine ? It is important to be sure you have a well-fitted pump flange. Consult your pump manual for recommended flange sizing or consult a professional. YOU SHOULD SET YOUR PUMP TO THE HIGHEST COMFORTABLE LEVEL. INCREASE THE SUCTION GRADUALLY UNTIL YOU REACH THE CORRECT SETTING. PUMPING SHOULD NOT HURT. CONSULT YOUR PUMP MANUAL FOR GUIDANCE ON PUMP SETTINGS AND FUNCTIONS. MOST PUMPS RECOMMEND 1-2 MINUTES OF THE QUICK ?MASSAGE? MODE, THEN SWITCHING TO THE SLOWER ?EXPRESSION? MODE FOR THE REMAINDER OF THE PUMPING SESSION. Pump each breast for 10-15 minutes. Pumping will help stimulate your breasts to produce milk. ?Follow the collection and storage sheet given to you in the Mom and Baby Guide. Remember to keep track of all feedings/elimination on the blue worksheet provided. Clean your pump parts between each pumping session according to the guidelines in your pump manual. It is recommended that you use a basin that is reserved for washing pump parts that is separate from your sink to prevent contamination. If you are pumping for an ill or , you should disinfect your pump parts once a day by boiling them in hot water for 5 minutes after cleaning. Ways to increase your milk supply: ? Increase frequency of pumping (10-12 times every 24 hours) ? Lots of skin to skin (if infant is able), especially before pumping ? Use warm washcloths before pumping and gentle breast massage before and during pumping ? Reduce stress, relax with music, get plenty of rest, and drink to thirst ? Warm pump flanges with warm water before pumping ? Pump until the milk stops flowing, then pump for 2 more minutes to fully empty the breast ? Pump at least once through the night, milk shouldn't remain in the breast for longer than 4 hours ? Power pumping: Pump for 15-20 minutes, rest for 10 minutes, pump for 10, rest for 10, pump for 10. Do this routine 1-2 times a day for several days or until you notice an increase in milk supply. Pump normally between power pumping sessions. You may contact the Team at [phone] for questions and appointments. Patient Instructions: Antibiotic Form Patient Language: Japanese Stand Alone Forms: General Discharge Information Follow-up/Referrals: Tad Bedoya MD [Physician, SYSTEMS MANAGEMENT CONSULTANT] - 1 Week Discharge Medications: New ibuprofen 600 mg Tablet 600 mg PO Q6H PRN (Reason: Cramping) Qty: 30 0RF Continued albuterol sulfate 90 mcg/actuation HFA aerosol inhaler 2 puff inhalation QID PRN (Reason: shortness of breath or wheezing) Qty: 6.7 0RF epinephrine 0.3 mg/0.3 mL auto-injector 0.3 mg IM ONCE Qty: 2 0RF Rx Instructions: as a single dose; may repeat once 28-800 mg-mcg tablet PO riboflavin (vitamin B2) [Vitamin B-2] 100 mg tablet 100 mg PO DAILY famotidine 20 mg tablet See Rx Instructions .ROUTE .COMPLEX Qty: 60 2RF Dose Instruction: TAKE 1 TABLET BY MOUTH TWICE A DAY Rx Instructions: TAKE 1 TABLET BY MOUTH TWICE A DAY Date of admission: 06/28/25 12:18 Primary Care Provider: Reagan Farnsworth Admitting Provider: Tad Bedoya Attending physician on admission: Tad Bedoya Condition: Stable
--- NOTE | 2025-06-30 15:50 | PC.NURSE ---
Patient is preparing for discharge after was transferred to [facility]. Reviewed pumping frequency and duration as well as expected volumes in the immediate period. She had some colostrum that she sent with the transport team and she is taking all of her [employer] pump parts for use in the NICU.
== END 2025-06-30 17:55 | disposition home or self-care (01) | DRG 560 ==
LOC: ANHLDR 06-29 19:02 → ANHOB2 06-29 20:58
PROVIDERS: Advanced Practice Midwife; Admitting Provider Obstetrics & Gynecology; PCP Internal Medicine; Visit Provider Obstetrics & Gynecology
DX: O13.4 Gestational [pregnancy-induced] hypertension without significant proteinuria, complicating childbirth (principal); Z3A.37 37 weeks gestation of pregnancy; Z37.0 Single live birth
CPT/HCPCS: 36415; 76819; 80053; 82570; 84156; 84550; 85014; 85018; 85025; 86593; 86850; 86900; 86901; A9270; J0290; J2590; J2795; J7030; J7120